=== PATIENT | male | born 1940 | race Caucasian/White ===

== ENCOUNTER 2016-12-08 05:17 | Inpatient (IN) | payer MEDICARE ==
[2016-12-05 11:40] LABS: BASOPHILS 0.4 %; BASOPHILS ABSOLUTE 0.02 10/3/uL (0.0-0.16); EOSINOPHILS 2.7 %; EOSINOPHILS ABSOLUTE 0.13 10/3/uL (0.0-0.53); HEMOGLOBIN 14.4 g/dL (13.6-17.8); IMMATURE GRANULOCYTES 0.2 %; IMMATURE GRANULOCYTES ABSOLUTE 0.01 10/3/uL (0.0-0.11); LYMPHOCYTES 22.4 %; LYMPHOCYTES ABSOLUTE 1.08 10/3/uL (0.67-4.30); MEAN CORPUS HGB CONC 33.5 g/dL (32.0-36.0); MEAN CORPUSCULAR HEMOGLOB 31.1 pg (26.0-34.0); MEAN CORPUSCULAR VOLUME 92.9 fL (80-100); MEAN PLATELET VOLUME 10.3 fL (9.2-13.0); MONOCYTES 8.5 %; MONOCYTES ABSOLUTE 0.41 10/3/uL (0.21-1.20); NEUTROPHILS 65.8 %; NEUTROPHILS ABSOLUTE 3.17 10/3/uL (2.02-8.40); PLATELET COUNT 124 10/3/uL (150-400); RED CELL COUNT 4.63 10/6/uL (4.7-6.1); WHITE BLOOD CELLS 4.8 10/3/uL (4.5-10.5)
[2016-12-05 11:42] LABS: MANUAL DIFF NO %
[2016-12-05 11:51] LABS: PROTIME (NOT ORD) 22.2 SEC (12.0-14.5)
[2016-12-05 12:11] LABS: % IRON SAT 53 % (20-50); A/G RATIO 0.8 (0.7-1.9); ALBUMIN 3.3 G/DL (3.5-5.0); ALKALINE PHOSPHATASE 80 U/L (45-117); BUN (BLOOD UREA NITROGEN) 16 MG/DL (6-23); CALCIUM, SERUM 8.8 MG/DL (8.5-10.4); CHLORIDE, SERUM 98 MMOL/L (96-112); CO2 (CARBON DIOXIDE) 29 MMOL/L (24-34); CREATININE 1.24 MG/DL (0.70-1.30); GFR AFRICAN AMERICAN 65 ML/MIN (>=60); GFR NON AFRICAN AMERICAN 56 ML/MIN (>=60); GLOBULIN 3.9 G/DL (2.5-4.1); GLUCOSE, SERUM 106 MG/DL (60-99); IRON BINDING CAPACITY 336 MCG/DL (250-450); IRON, SERUM 178 MCG/DL (35-150); POTASSIUM, SERUM 4.5 MMOL/L (3.5-5.3); SGOT(AST) 29 U/L (5-40); SGPT(ALT) 8 U/L (5-65); SODIUM, SERUM 138 MMOL/L (135-148); TOTAL BILIRUBIN 1.2 MG/DL (0-1.2); TOTAL PROTEIN 7.2 G/DL (6.0-8.5)
[2016-12-05 13:57] LABS: ASCORBIC ACID (UR NOT ORDER) NEG (NEG); BILIRUBIN, URINE NEGATIVE (NEG); KETONE, URINE TRACE MG/DL (NEG); LEUKOCYTE ESTERASE(NOT OR NEG (NEG); WBC (NOT ORDERED) (RFLEX) < 1 (0-5)
--- NOTE | ~2016-12-08 | OP ---
Record Of Operation [facility] [address] [place]. [address] NAME: YANETH AGUSTIN SR : 40 STATUS : ADM IN PAT#: [id number] AGE: 76 ADM/REG DATE : 12/08/16 MR#: [id number] REPORT SERV DATE: 01/08/17 DICTATED BY: PLACIDO ALEJANDRO DATE: 01/08/17 REPORT STATUS : Draft TRANSCRIBED BY: MODYecenia DATE: 01/08/17 DATE OF PROCEDURE: 01/08/2017 PREPROCEDURE DIAGNOSIS: Massive hemoptysis around tracheostomy. POSTPROCEDURE DIAGNOSIS: Massive hemoptysis around tracheostomy. DESCRIPTION OF PROCEDURE: Emergent bronchoscopy performed on this patient because of large amounts of blood coming through the tracheostomy site. This procedure was done in concert with critical care time and near coding situation that happened because of the ensuing incident. The patient was sedated on propofol for the procedure and was on the ventilator through the trach. Fiberoptic scope was inserted through the tracheostomy and visualized fresh blood around it in the airway. As I looked into the airway, saw a very large clot into the right mainstem and extends into the right upper lobe and part of the right lower lobe in a very cast like manner. We scored some water into the trachea, left lung and right lung, to try to visualize any sort of bleeding source, but no bleeding source was identified in terms of active bleeding. I did not see any bleeding trickling down behind the actual trach itself. The left lung actually was pretty open. There was very minimal blood on that side of the lung and all of the segments of the lung on the left lung were open. However, when we go into the right lung, is where the large mainstem clot is located and extends into the right upper lobe in all segments and parts of the right lower lobe. The procedure was complicated by hypotension and tachycardia, so we were doing active resuscitation and we had to stop the scope from that standpoint. Early in the procedure, I also tried the scope from above going through the mouth and nose to try to see above the cords in the upper trachea to see there is any bleeding from that location, but I had difficulty due to a lot of soft tissue collapsing the vocal cord region, so I was not able to cannulate the bronchoscope into the vocal cords. The patient actually did not stabilize from a respiratory or hemodynamic standpoint until I stuck at Crane down after I took the scope out and was able to suction the large cast-like clot out of his right lung. From that standpoint, his heart rate and blood pressure did much better. Right now, he is going to Interventional Radiology for emergent angiogram looking for bleeding source. CEP/MODL Placido Alejandro, / [id number] CC: Ramin Seth M.D. Lico Roberts M.D.
--- NOTE | ~2016-12-08 | CN ---
Consultation Report [facility] [address] [place]. [address] NAME: YANETH AGUSTIN SR : 40 STATUS : ADM IN PAT#: [id number] AGE: 76 ADM/REG DATE : 12/08/16 MR#: [id number] REPORT SERV DATE: 12/10/16 DICTATED BY: SANTHOSH ROBLERO DATE: 12/10/16 REPORT STATUS : Draft TRANSCRIBED BY: MODL DATE: 12/10/16 CONSULTATION DATE OF CONSULTATION: 12/10/2016 TIME: 10:50 a.m. REASON FOR CONSULTATION: Acute kidney injury. ASSESSMENT: Acute kidney injury in a 76-year-old male who has undergone extensive cardiac surgery as of 12/08/2016. Suspect he has perioperative ATN and is currently fluid overloaded. The patient is responding to Bumex drip at this time, injury is nonoliguric and plan therefore is. 1. Continue Bumex drip at current rate. 2. Double concentrate all his IVs. 3. IV albumin to control preload as we continue diureses at least 5 L positive and we will monitor electrolytes closely as he is on the Bumex drip at this time. HISTORY OF PRESENT ILLNESS: History is obtained from records available. A 76-year-old male, post CABG x4, aortic valve replacement, tricuspid valve repair Maze surgery as of 12/08/2016. Baseline creatinine of 1.1 on 05/01/2016 and 1.24 on the 05 of December this year, now up to 1.96. His urinalysis showed 30 mg/dL of protein. His cardiac index at this point is 2.1. He is on 2 mcg of Dobutrex. He is off pressors at this time and is on 0.5 mg an hour of Bumex and is making between 200 and 300 mL of urine an hour. PAST MEDICAL HISTORY: Severe aortic stenosis, symptomatic severe multivessel coronary artery disease, ejection fraction 55%, right carotid artery stenosis, pulmonary hypertension, hyperlipidemia, peripheral vascular disease, diabetes mellitus, positive history of smoking, atrial fibrillation on Coumadin, history of Parkinson's disease, and chronic obstructive pulmonary disease. SOCIAL HISTORY: He has history in the . He is retired. Past tobacco use. Quit approximately a month ago. Heavy smoker for almost 50 years. No alcohol or medication or street drug usage. FAMILY HISTORY: Mother had a stroke. Father had diabetes. HOME MEDICATIONS: Have included furosemide; carvedilol; carbidopa; oxycodone; metformin; simvastatin; and Coumadin. REVIEW OF SYSTEMS: As per the HPI. PHYSICAL EXAMINATION: Consultation Report [address] [place]. [address] NAME: YANETH AGUSTIN : 40 STATUS : ADM IN PAT#: [id number] AGE: 76 ADM/REG DATE : 12/08/16 MR#: [id number] REPORT SERV DATE: 12/10/16 DICTATED BY: SANTHOSH ROBLERO DATE: 12/10/16 REPORT STATUS : Draft TRANSCRIBED BY: NATHALY DATE: 12/10/16 GENERAL: He is intubated, sedated in no acute distress. VITAL SIGNS: Blood pressure is 160/66, heart rate is in the 100s, atrial fibrillation, he is on 35% FiO2, saturations being in the 90s. HEENT: His pupils are reactive to light. He is not pale or jaundiced. He is orally intubated. Mucosa is moist. Trachea is central. LUNGS: Air entry is reduced bilaterally. Scattered rhonchi. He has a sternotomy scar. He has a wound VAC. HEART: Heart sounds 1 and 2 are difficult to discern. ABDOMEN: Upper abdomen has mild distention. No hepatosplenomegaly. No tenderness, guarding, or rebound. Bowel sounds normal. He has about 3+ peripheral edema. PULSES: Peripheral pulses are present dorsalis pedis, posterior tibial. NEUROLOGICAL: Exam cannot be performed. LABS AND IMAGING: Blood gas 7.39, 43, 108, saturation 97. Sodium 143, potassium 4.0, chloride 108, CO2 of 25, BUN 31, creatinine 1.96, calcium is 8.2, mag is 2.4, hemoglobin 7.9, and hematocrit 22.4. White count 6.1, platelet count 36,000. Urinalysis shows 30 mg/dL of protein. Chest x-ray shows increased pulmonary vascular congestion consistent with heart failure. MG/NATHALY Santhosh Roblero M.D. / [id number] CC: Michelle Barragan M.D.
--- NOTE | ~2016-12-08 | OP ---
Record Of Operation [facility] [address] [place]. [address] NAME: YANETH AGUSTIN SR : 40 STATUS : ADM IN PAT#: [id number] AGE: 76 ADM/REG DATE : 12/08/16 MR#: [id number] REPORT SERV DATE: 01/09/17 DICTATED BY: GUERRERO TUBBS DATE: 01/09/17 REPORT STATUS : Draft TRANSCRIBED BY: MODL DATE: 01/09/17 DATE OF PROCEDURE: 01/09/2017 REASON FOR PROCEDURE: Dark stools and concern for upper GI bleeding. PROCEDURE PERFORMED: EGD or upper endoscopy. PROCEDURE IN DETAIL: Procedure was performed with the use of monitored anesthesia care for sedation and the procedure was performed without difficulty. The patient tolerated the procedure well, and there were no immediate complications. Estimated blood loss was none. After the patient was adequately sedated, the adult endoscope was advanced through the oropharynx and into the patient's esophagus. Examination of the esophagus showed no significant abnormalities. Likewise, there were no abnormalities within the duodenum. Within the stomach, a PEG tube was visualized with no suggestion of any recent bleeding. However, upon closer inspection underneath the internal bumper of the PEG tube was noted to be a large 1 cm crated gastric ulcer. The PEG tube appeared to be pulled snugly into the gastric mucosa likely causing a pressure ulceration. The PEG tube was loosened so that there was not pressure from the balloon on the inside of the stomach. It was also noted on the external bandages to be greenish brown exudate that appeared to be pus. Examination was otherwise unremarkable. IMPRESSION: Gastric ulcer underneath the patient's PEG tube. RECOMMENDATIONS: Bumper already loosened. We would keep the patient on twice daily Protonix for the next 8 to 12 weeks. We would also treat possible infected PEG tube site with vancomycin q.12 hours to be dosed by Pharmacy. We would also hold tube feeds until tomorrow to allow the ulcer a chance to begin healing. Griselda/NATHALY Guerrero Tubbs MD / [id number] CC: Michelle Barragann, M.D.
--- NOTE | ~2016-12-08 | CN ---
Consultation Report [facility] [address] [place]. [address] NAME: YANETH JOHNSON SR : 40 STATUS : ADM IN PAT#: [id number] AGE: 76 ADM/REG DATE : 12/08/16 MR#: [id number] REPORT SERV DATE: 12/09/16 DICTATED BY: DANICA VYAS DATE: 12/09/16 REPORT STATUS : Draft TRANSCRIBED BY: MODL DATE: 12/09/16 PULMONARY AND CRITICAL CARE CONSULTATION DATE OF CONSULTATION: 12/09/2016 REASON FOR CONSULTATION: Acute hypoxemic respiratory failure, status post cardiothoracic surgery. HISTORY OF PRESENT ILLNESS: Mr. Johnson is an obese, hypertensive, diabetic gentleman with chronic atrial fibrillation, on Coumadin, who is followed as an outpatient by Dr. Landin for COPD. His baseline FEV1 is around 1.45 L based on his records. He was scheduled for surgery with Dr. Seth, which was completed yesterday. He had a complicated procedure, including coronary artery bypass grafting x4 (CONWAY to LAD, saphenous vein graft to intermediate ramus, saphenous vein graft to first obtuse marginal, and saphenous vein graft to posterior descending coronary). He also had a right carotid endarterectomy, an aortic valve replacement with a 25 mm Lucie-Sánchez bovine pericardial Magna Ease bioprosthesis, a tricuspid valve repair, a Mar IV maze procedure, amputation and ligation of his left atrial appendage. His preoperative diagnoses included severe symptomatic aortic stenosis, multivessel coronary disease, pulmonary hypertension, atrial fibrillation requiring chronic anticoagulation with Coumadin, tricuspid insufficiency, hypertension, dyslipidemia, diabetes, smoking, prior congestive heart failure, and a large chronic right pleural effusion as well as critical right internal carotid stenosis. After surgery, he was left intubated with a Taunton-Susanne catheter in place due to intraoperative blood loss requiring packed red blood cells, intraoperative TEG, and DDAVP administration in the operating room. He was brought to the CVICU and initially hemodynamically stable, however, at one point last night, dropped his blood pressure to the 50 systolic with some bright red blood from the left chest tube. Of note, his INR was elevated at 2.8 this morning despite being near normal preoperatively. His platelet count was also diminished and he was transfused with platelets and given Albumisol, which improved his blood pressure significantly. At this point, he remains mechanically ventilated and is on Dobutrex, Levophed, and epinephrine with a paced rhythm in the 90s (his underlying rhythm is junctional and his hemodynamics are improved with pacing). PAST MEDICAL HISTORY: As above, severe symptomatic aortic stenosis; multivessel coronary artery disease; pulmonary hypertension; atrial fibrillation, on chronic anticoagulation; tricuspid insufficiency; hypertension; dyslipidemia; diabetes (type 2); tobacco abuse with underlying COPD, followed by Dr. 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 PAST SURGICAL HISTORY: Includes appendectomy as a teenager, tonsillectomy as a child, and several dental extractions. Consultation Report [address] [place]. [address] NAME: YANEHT JOHNSON : 40 STATUS : ADM IN [facility]#: [id number] AGE: 76 ADM/REG DATE : 12/08/16 MR#: [id number] REPORT SERV DATE: 12/09/16 DICTATED BY: DANICA VYAS DATE: 12/09/16 REPORT STATUS : Draft TRANSCRIBED BY: NATHALY DATE: 12/09/16 His primary care physician is Dr. Lico Roberts, area code [phone]. His store grocery merchandiser is Dr. Nirmal Mahajan at the [facility]. He sees Dr. Landin from my group for Pulmonology. SOCIAL HISTORY: The patient is a nondrinker and denies any illicit drug use. He is a longstanding user of cigarettes with a 50+ pack-year history. He is relatively active for his age and is able to climb stairs and participate in all activities of daily living. FAMILY HISTORY: Largely unremarkable for early coronary disease. ALLERGIES: NONE KNOWN. HOME MEDICATIONS: Sinemet 25/100 one tab three times daily, Lasix 40 mg daily, Glucophage 1000 mg twice daily, Requip 1 mg three times daily, Zocor 10 mg at bedtime, Coumadin 10 mg daily, Percocet 10/325 one tab three times daily, oxycodone 15 mg up to every six hours as needed for pain, TobraDex ophthalmic 5 mL one drop to the left eye every six hours, Travatan Z 0.004 ophthalmic solution one drop to the eyes at bedtime, Alphagan ophthalmic solution 0.1 three times daily to both eyes, Coreg 12.5 mg twice a day. CODE STATUS: Full. PHYSICAL EXAMINATION: VITAL SIGNS: Blood pressure is 115/58 on multiple vasopressors and inotropes, he is afebrile at 99.1, heart rate is 80 (paced), respiratory rate is 24 on CMV, oxygen saturation is 99% on 40% FiO2. GENERAL: The patient is a male, who is intubated and sedated. HEENT: Head is atraumatic and normocephalic. Conjunctivae are pale. Pupils are equal, round, and reactive to light. Extraocular movements are difficult to assess, but intact. Ears, nose, and mouth are unremarkable. He has an indwelling endotracheal tube and enteric tube as noted above. NECK: Supple with a Taunton in place with no active bleeding or erythema at the insertion site. CHEST: Diminished breath sounds bilaterally. He has multiple mediastinal and pleural chest tubes in place with no active bleeding at the insertion sites. There is bright red blood in the left pleural chest tube. Atrium, there were no air leaks appreciable in any of the chest tubes. HEART: S1 and S2. He has pacer wires projecting from the lower chest. ABDOMEN: Soft, nontender, nondistended with bowel sounds in all four quadrants and no appreciable peritoneal signs. He has a sternal wound VAC in place, which is functioning properly. : A Ko catheter is indwelling and draining a translucent yellow urine. EXTREMITIES: Without clubbing or cyanosis. He has trace edema. LYMPHATIC: Unremarkable. He has no palpable adenopathy. NEUROLOGIC: Limited due to sedation. Consultation Report [place] [id number] [facility] [place]. [address] NAME: YANETH JOHNSON : 40 STATUS : ADM IN [facility]#: [id number] AGE: 76 ADM/REG DATE : 12/08/16 MR#: [id number] REPORT SERV DATE: 12/09/16 DICTATED BY: DANICA VYAS DATE: 12/09/16 REPORT STATUS : Draft TRANSCRIBED BY: MODL DATE: 12/09/16 PSYCHIATRIC: Unable to assess due to sedation. LABORATORY DATA: Diagnostic workup has been reviewed in [facility]. Electrolytes are unremarkable, BUN is 24 and creatinine is 1.72 (LUCIANO likely superimposed on some degree of chronic kidney disease with a calculated GFR of 38 mL/minute), glucose is 114, calcium is 8.5. Last hemoglobin is 8.0, hematocrit is 22.3 with a platelet count of 62, which is improved from 40 earlier in his hospital course. INR was 1.3 prior to surgery. Multiple chest x-rays are reviewed from his current hospitalization with bilateral pulmonary vascular congestion consistent with mild edema, multiple chest tubes in place, appropriately positioned central line and endotracheal tube, and sternal hardware from his procedure yesterday. IMPRESSION: 1. Acute hypoxemic respiratory failure, status post cardiothoracic surgery yesterday in the setting of underlying obstructive lung disease (FEV1 of 1.45 most recently) with longstanding tobacco abuse. 2. Coronary artery disease, status post four-vessel coronary bypass. 3. Severe symptomatic aortic stenosis, status post aortic valve replacement with a bovine pericardial bioprosthesis. 4. Pulmonary hypertension with hypervolemia postprocedure. 5. Atrial fibrillation, status post Mar IV maze procedure. 6. Tricuspid insufficiency, status post tricuspid valve repair with tricuspid annuloplasty ring. 7. Acute blood loss anemia, status post complicated cardiothoracic surgery. 8. Critical right internal carotid artery stenosis, status post right carotid endarterectomy with CorMatrix patch angioplasty. 9. Parkinson disease, on Sinemet and Requip with good functional status as an outpatient. 10.Past medical history of hypertension, dyslipidemia, and diabetes mellitus, which was diagnosed in 1987, which is being treated as an outpatient with oral medications. 11.History of tobacco abuse with ongoing smoking. 12.Moderate obesity with a BMI of 32. 13.Acute kidney injury, likely superimposed on some degree of chronic kidney disease. 14.Mild hyperglycemia in the setting of critical illness with a background history of type 2 diabetes mellitus. 15.Thrombocytopenia, status post platelet administration. 16.Coagulopathy in the setting of Coumadin being held preoperatively. 17.Shock, requiring multiple vasopressors and inotropes. PLAN: Case was discussed at length with Dr. Seth. We will continue mechanical ventilation and hemodynamic support in the CVICU and slowly wean support as tolerated. We will monitor his H and H and platelet count as well as INR closely and make adjustments and/or transfuse on an as-needed basis. He has a Taunton, central line, and arterial line for hemodynamic monitoring and we will continue with routine postoperative care with the goal of extubating as soon as possible. Consultation Report [place] [id number] [place] [address] NAME: YANETH JOHNSON SR : 40 STATUS : ADM IN PAT#: [id number] AGE: 76 ADM/REG DATE : 12/08/16 MR#: [id number] REPORT SERV DATE: 12/09/16 DICTATED BY: DANICA VYAS DATE: 12/09/16 REPORT STATUS : Draft TRANSCRIBED BY: MODYecenia DATE: 12/09/16 We appreciate the opportunity to assist with Mr. Johnson's care and we will follow along closely, making adjustments to his medical management as clinically warranted. Please call with questions. MATTHEW/NATHALY Danica Vyas MD / [id number] CC: Ramin Seth M.D. Lico Roberts M.D.
--- NOTE | ~2016-12-08 | CN ---
Consultation Report [facility] [address] [place]. [address] NAME: YANETH JOHNSON SR : 40 STATUS : ADM IN PAT#: [id number] AGE: 76 ADM/REG DATE : 12/08/16 MR#: [id number] REPORT SERV DATE: 01/05/17 DICTATED BY: DANICA VYAS DATE: 01/05/17 REPORT STATUS : Draft TRANSCRIBED BY: MODL DATE: 01/05/17 CODE BLUE RESPONSE NOTE DATE OF CONSULTATION: DATE OF CODE: 01/05/2017 TIME OF CODE: 1220 hours. LOCATION OF CODE: CVICU bed 12. Pulmonary and Critical Care team responded to code blue, which was fired at 1220 hours for Mr. Yaneth Johnson. He is a 76-year-old gentleman, who has been recovering from cardiothoracic surgery with Dr. Seth in CVICU. He was up in the chair, working with Occupational Therapy, at which point he was noted to become obtunded and unresponsive. On the monitor, it was noted that he yesenia'd down to asystole. He was immediately placed back in the bed, and ACLS was initiated. He received an amp of epinephrine and approximately three minutes of chest compressions. On first pulse check, as bicarb and calcium were being pushed, he was noted to be in atrial fibrillation with rapid ventricular response at 135 and his blood pressure was 129/56. He was observed, and sequential vital signs improved to a heart rate of 100 and a blood pressure of 135/63. A full panel of labs was sent. A PICC line was replaced, and he was reconnected to the ventilator via his existing tracheostomy. We have updated his family as well as Dr. Seth's team, and we will continue to monitor him closely in the CCU tonight. MATTHEW/NATHALY Danica Vyas MD / [id number] CC: Ramin Seth M.D. Lico Roberts M.D.
--- NOTE | ~2016-12-08 | OP ---
Record Of Operation [facility] [address] [place] [address] NAME: YANETH AGUSTIN SR : 40 STATUS : ADM IN [facility]#: [id number] AGE: 76 ADM/REG DATE : 12/08/16 MR#: [id number] REPORT SERV DATE: 12/17/16 DICTATED BY: ASHLEY MURILLO DATE: 12/17/16 REPORT STATUS : Draft TRANSCRIBED BY: MODL DATE: 12/17/16 DATE OF PROCEDURE: 12/17/2016 TIME: Approximately 0930 hours. PROCEDURE: Intubation. INDICATION: Failed extubation attempt. DESCRIPTION OF PROCEDURE: Pre-oxygenated 100% oxygen. Monitored by blood pressure, EKG, and pulse oximetry. #8 endotracheal tube was placed under direct vision to 24 cm. Tube was seen to enter between the cords. Confirmed by end-tidal CO2 monitor. Good breath sounds bilaterally. Sat 100%. Post-chest x-ray ordered. The patient has failed BiPAP prior to this. OCTAVIO/NATHALY Ashley Murillo M.D. / [id number] CC: Michelle Barragan M.D.
--- NOTE | ~2016-12-08 | CN ---
Consultation Report [facility] [address] [place]. [address] NAME: YANETH AGUSTIN SR : 40 STATUS : ADM IN PAT#: [id number] AGE: 76 ADM/REG DATE : 12/08/16 MR#: [id number] REPORT SERV DATE: 12/18/16 DICTATED BY: STEVIE ZHANG DATE: 12/18/16 REPORT STATUS : Draft TRANSCRIBED BY: MODL DATE: 12/18/16 INFECTIOUS DISEASE CONSULT DATE OF CONSULTATION: REASON FOR REFERRAL: Evaluation and treatment of recrudescent fever. HISTORY OF PRESENT ILLNESS: The patient is a 76-year-old male. He has a past medical history of hypertension, diabetes mellitus, chronic obstructive pulmonary disease, prolonged extensive smoking history, chronic atrial fibrillation, for which he is on Coumadin. He was admitted electively on the 08 of December for surgery by Dr. Seth and had a quite extensive and lengthy procedure to include coronary artery bypass grafting times four, aortic valve replacement, tricuspid valve repair, and carotid endarterectomy. Postoperatively, he has remained vent dependent since then. He received appropriate preoperative antibiotics and those were stopped in a timely manner. He initially showed no fever or anything to suggest infection. He did have some postoperative hypotension, which has since resolved. He had acute renal insufficiency, which is still a problem and as stated remained on the vent. On the , he developed some low-grade temperatures just over 100. Blood cultures were checked and those remained negative. Temperature began to trend higher on the , over 101, so blood cultures were repeated again and those again have remained negative and that was on no antibiotics. Chest x-ray showed no distinct infiltrate, but a relatively purulent-appearing sputum was obtained on the . He grew gram-negative rods, so cefepime was added late on the or early with cultures repeated just for that and both of those sputum cultures grew Citrobacter and Klebsiella that were generally very sensitive organisms. He was continued on vancomycin that had been added empirically on the and remains on both antibiotics now. After the cefepime was added, his temperature did fall to normal and stayed normal for about 24 hours, but then yesterday, began trending up again. His white count has gone up. He has looked worse. He failed an extubation trial. Chest x-ray has shown nothing new, just some bilateral atelectasis. He has had his [place] removed and a culture that showed no growth. He has a PICC line now for IV medication and is relatively new. His wound does look good without any signs of redness, drainage, or purulence. He still has chest tube on the left side. He has developed no rash. He is on tube feedings and is tolerating those fine and has shown no unexpected loose stool. There is no history of pre-admission fever or unusual environmental exposures prior to coming in. Extensive records for his very complicated admission were reviewed approximately 30 minutes in addition to the usual consult time. PAST MEDICAL HISTORY: Otherwise noncontributory. MEDICATIONS: As described above. ALLERGIES: NO KNOWN ANTIMICROBIAL ALLERGIES. Consultation Report [address] [place]. [address] NAME: YANETH AGUSTIN SR : 40 STATUS : ADM IN [facility]#: [id number] AGE: 76 ADM/REG DATE : 12/08/16 MR#: [id number] REPORT SERV DATE: 12/18/16 DICTATED BY: STEVIE ZHANG DATE: 12/18/16 REPORT STATUS : Draft TRANSCRIBED BY: NATHALY DATE: 12/18/16 SOCIAL HISTORY: He is retired, single, apparently still smoking. No history of alcohol or substance abuse. FAMILY HISTORY: Noncontributory. PHYSICAL EXAMINATION: GENERAL: An ill-appearing elderly male, lying in bed. He is orotracheally intubated, responds to pain, but does not really follow commands. He has nasogastric tube in place. VITAL SIGNS: His present temperature is 99.5 axillary with a pulse of 92, respirations 25, blood pressure 121/58. Weight is 109 kg. HEENT: Sclerae clear. Unable to visualize the mouth. NECK: Supple without lymphadenopathy or meningeal signs. LUNGS: There are decreased breath sounds and crackles in the bases bilaterally, otherwise clear. HEART: Irregular. Sternal incisions covered by a VAC pack dressing, but it looks good around the borders. Chest tube site does not appear to be infected. ABDOMEN: Soft. No response to palpation. Positive bowel sounds are heard. No masses palpated. EXTREMITIES: Without clubbing, cyanosis, or edema. No swollen, red, or hot joints. No skin lesions or rashes are noted. Right extremity PICC line shows no warmth, redness, or drainage. LABORATORY DATA: His white count was 8 when he came in, briefly ishmael to 13 postoperatively, was back down to 9.1 on the and remained normal, was 8.9 yesterday, but today it was 12.2 with hematocrit 22.8, and platelets 138. Unremarkable differential. His BUN and creatinine 105 and 2.65, it had been trending down through today. Procalcitonin was last checked on the , it was 0.45. Urinalysis done with the onset of fever shows no pyuria. His cultures as stated have all been negative with the exception of the tracheal aspirates on the and that was repeated yesterday late in the morning and it showed a few white cells, occasional gram-positive cocci. Blood cultures done on remain negative. IMPRESSION: Recrudescent fever after a favorable response to cefepime, which I think was indeed treating a gram-negative castillo bronchitis/early pneumonia. There is no clear new source for fever now. The chest x-ray does not show anything new, his wound looks good, blood cultures have been negative, no rash is noted. We would worry about aspiration events with all that happened when the difficulty of him getting extubated and the fact he is on tube feedings. RECOMMENDATIONS: 1. We will follow up with tracheal aspirate cultures done yesterday. 2. Repeat blood cultures. 3. Stop vancomycin since no gram positives/Staph had been isolated. Consultation Report [address] [place]. [address] NAME: YANETH AGUSTIN : 40 STATUS : ADM IN [facility]#: [id number] AGE: 76 ADM/REG DATE : 12/08/16 MR#: [id number] REPORT SERV DATE: 12/18/16 DICTATED BY: STEVIE ZHANG DATE: 12/18/16 REPORT STATUS : Draft TRANSCRIBED BY: NATHALY DATE: 12/18/16 4. Change cefepime to Zosyn to cover in case he has not had an aspiration event. 5. Recheck the procalcitonin. If that has gone up, perhaps give us more indication where the fever is coming from. Finally, I will follow the patient with you. I appreciate very much your consulting on this patient. AUDIE/NATHALY Stevie Zhang M.D. / [id number] CC: Michelle Barragan M.D.
--- NOTE | ~2016-12-08 | OP ---
Record Of Operation [facility] [address] [place]. [address] NAME: YANETH AGUSTIN SR : 40 STATUS : ADM IN PAT#: [id number] AGE: 76 ADM/REG DATE : 12/08/16 MR#: [id number] REPORT SERV DATE: 12/19/16 DICTATED BY: ALEXYS HALEY DATE: 12/19/16 REPORT STATUS : Draft TRANSCRIBED BY: MODL DATE: 12/19/16 DATE OF PROCEDURE: 12/19/2016 PREOPERATIVE DIAGNOSIS: Acute respiratory failure. POSTOPERATIVE DIAGNOSIS: Acute respiratory failure. PROCEDURE PERFORMED: Tracheotomy. SURGEON: Alexys Haley M.D. [employer] ARCHITECT: Buster Dahl. ANESTHESIA: General. COMPLICATIONS: None. CONDITION: Stable to CV ICU bed 2. INDICATIONS: A 76-year-old male, status post coronary artery bypass grafting, double valve replacement, and right carotid endarterectomy with respiratory failure. Risks, benefits, and alternatives were discussed with his daughter and she agreed to proceed with the operation. PROCEDURE IN DETAIL: The patient was identified in CV ICU bed 2, brought to the operating room, and placed supine on the operating room table. General anesthesia was re-established. A time-out was called, the patient and procedure were confirmed. The one fingerbreadth above the sternal notch and 3 cm incision was marked with a surgical ink pen and infiltrated subcutaneously with 1% lidocaine with 1:100,000 epinephrine. He was prepped and draped in a standard fashion for the operation. He had a very stiff neck, limited extension. A 15 blade was used to make the skin incision and Bovie cautery used to dissect down to the platysma, through platysma down to the strap musculature. The midline raphe was identified and retracted laterally with the [employer] retractors. The cricoid cartilage was at the level of the sternal notch. The thyroid isthmus extended down into the mediastinum. The decision was made to go between the cricoid between rings 1 and 2. The cricoid was retracted superiorly with a cricoid hook. The upper aspect of the thyroid isthmus was dissected. A small bleeder was encountered crossing the isthmus and this was tied off with a 3-0 suture ligature. Laterally a small vein was ligated with a 3-0 interrupted silk ties. The interspace between rings 1 and 2 was treated with bipolar cautery. Blunt dissection used to enter the trachea with the hemostat. The tracheotomy dilated with the tracheal dilator and tracheal rings were cauterized with bipolar cautery. The endotracheal tube was withdrawn and a #8 cuffed Shiley tracheotomy tube was placed under direct visualization. The cuff was inflated, inner cannula placed, and the patient was connected to the ventilator, and good oxygenation and ventilation established. Face plate was secured with 2 0 silk sutures. Two strips of Surgicel were placed within the tracheotomy site to help with hemostasis and a drain sponge was placed under the face plate. There was no notable Record Of Operation [address] [address] NAME: YANETH AGUSTIN : 40 STATUS : ADM IN [facility]#: [id number] AGE: 76 ADM/REG DATE : 12/08/16 MR#: [id number] REPORT SERV DATE: 12/19/16 DICTATED BY: ALEXYS HALEY DATE: 12/19/16 REPORT STATUS : Draft TRANSCRIBED BY: MODL DATE: 12/19/16 bleeding at the end of the case. The patient was transported to the CV ICU in stable condition. PH/MODL Alexys Haley M.D. / [id number] CC: Michelle Barragan M.D.
--- NOTE | ~2016-12-08 | CN ---
Consultation Report [address] [place]. [address] NAME: YANETH JOHNSON : 40 STATUS : ADM IN PAT#: [id number] AGE: 76 ADM/REG DATE : 12/08/16 MR#: [id number] REPORT SERV DATE: 12/19/16 DICTATED BY: ALEXYS HALEY DATE: 12/19/16 REPORT STATUS : Draft TRANSCRIBED BY: MODL DATE: 12/19/16 DATE OF CONSULTATION: 12/19/2016 CHIEF COMPLAINT: Respiratory failure. HISTORY OF PRESENT ILLNESS: Mr. Johnson is a gentleman who on 12/08/2016 underwent multiple cardiothoracic procedures including double valve replacement, coronary artery bypass grafting x4 and a carotid endarterectomy. He failed extubation on postoperative day #10 and recommendation was for tracheotomy. PAST MEDICAL HISTORY: Aortic stenosis, 3-vessel coronary artery disease, right carotid stenosis, pulmonary hypertension, peripheral artery disease, hyperlipidemia, hypertension, diabetes mellitus, atrial fibrillation, parkinsonism, COPD, congestive heart failure. ALLERGIES: NO KNOWN ALLERGIES. MEDICATIONS: See the MAR. SOCIAL HISTORY: exposure, retired, past tobacco smoker. He has children, is . Does not drink alcohol. FAMILY HISTORY: Stroke and diabetes. REVIEW OF SYSTEMS: Not obtainable as he is intubated. PHYSICAL EXAMINATION: GENERAL: He is in the ICU on monitoring with stable vital signs. HEENT: His ears are normal. His nose has a Dobhoff tube, oral cavity, and orotracheal endotracheal tube. NECK: Has evidence of a carotid endarterectomy, has a sternal wound from coronary artery bypass grafting. IMPRESSION: Acute respiratory failure. PLAN: Tracheotomy. Risks, benefits, and alternatives were discussed with his daughter including bleeding, infection, need for additional surgery, pneumothorax. She agreed to the procedure. Informed consent was signed and surgery will be scheduled for later this morning. PH/MODL Consultation Report [address] [place]. [address] NAME: YANETH JOHNSON : 40 STATUS : ADM IN [facility]#: [id number] AGE: 76 ADM/REG DATE : 12/08/16 MR#: [id number] REPORT SERV DATE: 12/19/16 DICTATED BY: ALEXYS HALEY DATE: 12/19/16 REPORT STATUS : Draft TRANSCRIBED BY: MODL DATE: 12/19/16 Alexys Haley M.D. / [id number] CC: Michelle Barragan M.D.
--- NOTE | ~2016-12-08 | EGD ---
EGD REPORT [facility] [address] [place]. [address] NAME: YANETH JOHNSON SR : 40 STATUS : ADM IN PAT#: [id number] AGE: 76 ADM/REG DATE : 12/08/16 MR#: [id number] REPORT SERV DATE: 12/22/16 DICTATED BY: GUERRERO TUBBS DATE: 12/22/16 REPORT STATUS : Draft TRANSCRIBED BY: [facility] DATE: 12/22/16 Endoscopy Center Patient Name: Yaneth Johnson Date of : 1940 Attending MD: GUERRERO TUBBS MD Procedure Date No Time: 12/22/2016 Procedure: Upper GI endoscopy Indications: Place PEG because patient is unable to eat, Place PEG to improve nutrition in patient with prolonged severe illness Medicines: Monitored Anesthesia Care Complications: No immediate complications. Estimated blood loss: None. Procedure: Pre-Anesthesia Assessment: - ASA Grade Assessment: IV - A patient with severe systemic disease that is a constant threat to life. After obtaining informed consent, the endoscope was passed under direct vision. Throughout the procedure, the patient's blood pressure, pulse, and oxygen saturations were monitored continuously. The GIF [id number] was introduced through the mouth, and advanced to the second part of duodenum. The upper GI endoscopy was accomplished without difficulty. The patient tolerated the procedure well. Findings: No gross lesions were noted in the entire esophagus. No gross lesions were noted in the entire examined stomach. The patient was placed in the supine position for PEG placement. The stomach was insufflated to appose gastric and abdominal hinds. An adequate site was unable to be located in the body of the stomach with transillumination and manual external pressure for placement. Therefore, due to concerns about potential covering of the liver or bowel, no attempt was made to pass the trocar or make an incision. No gross lesions were noted in the entire examined duodenum. Impression: - Due to inability to localize a site for safe percutaneous placement, inadequate transillumination and inadequate one-to-one localization (i.e. inadequate localization by palpation) PEG was not completed. The needle/trocar was not passed. Recommendation: - Refer to an interventional radiologist today for PEG tube placement. Procedure Code(s): --- Professional --- EGD REPORT [address] [address] NAME: YANETH JOHNSON : 40 STATUS : ADM IN [facility]#: [id number] AGE: 76 ADM/REG DATE : 12/08/16 MR#: [id number] REPORT SERV DATE: 12/22/16 DICTATED BY: GUERRERO TUBBS DATE: 12/22/16 REPORT STATUS : Draft TRANSCRIBED BY: [employer] DATE: 12/22/16 [id number], Esophagogastroduodenoscopy, flexible, transoral; diagnostic, including collection of specimen(s) by brushing or washing, when performed (separate procedure) Diagnosis Code(s): --- Professional --- R63.3, Feeding difficulties Z43.1, Encounter for attention to gastrostomy E63.9, Nutritional deficiency, unspecified CPT copyright 2013 [employer]. All rights reserved. The codes documented in this report are preliminary and upon lei maker review may be revised to meet current compliance requirements. Guerrero Tubbs MD GUERRERO TUBBS MD 12/22/2016 11:01 AM This report has been signed electronically. Number of Addenda: 0 Note Initiated On: 12/22/2016 9:49 AM Scope Withdrawal Time 0 hours 0 minutes 0 seconds [id number] [place] [id number]
--- NOTE | ~2016-12-08 | DS ---
Discharge Summary [address] [id number] [place]. [address] NAME: YANETH AGUSTIN SR : 40 STATUS : DIS IN PAT#: [id number] AGE: 76 ADM/REG DATE : 12/08/16 MR#: [id number] REPORT SERV DATE: 02/07/17 DICTATED BY: THU JOLLY DATE: 02/06/17 REPORT STATUS : Draft TRANSCRIBED BY: MODL DATE: 02/06/17 ADMISSION DATE: 12/08/2016 DISCHARGE DATE: 01/23/2017 DISCHARGE DIAGNOSES: Aortic stenosis now status post AVR. Critical carotid stenosis now status post right carotid endarterectomy. Coronary artery disease now status post CAB and tricuspid insufficiency now status post tricuspid valve repair. Chronic atrial fibrillation now status post Mar-Maze IV with amputation and ligation of left atrial appendage, chronic obstructive pulmonary disease with chronic respiratory failure and pulmonary hypertension, chronic kidney disease on intermittent hemodialysis, hypertension, hyperlipidemia, insulin- dependent diabetes mellitus, obesity, peripheral vascular disease, cardiogenic shock now resolved, dysphagia now to PEG tube, coagulopathy resolved, chronic stable anemia, chronic Parkinson's disease. CONSULTATION: 1. On 12/09/2016, Tawny Baxter M.D., with Pulmonary Critical Care for acute postoperative hypoxic respiratory failure and vent management. 2. On 12/12/2016, Bassam Segura M.D. with GI for evaluation for PEG tube. 3. On 12/19/2016, Casey Mcnally M.D. with ENT for evaluation for tracheostomy. 4. On 12/18/2016, James Garcia M.D. with Infectious Disease for fever. 5. On 12/10/2016, Jose Roblero M.D. with Nephrology for acute kidney injury on chronic kidney disease. PROCEDURES PERFORMED: On 12/08/2016, right carotid endarterectomy with coronary artery bypass x4 with CONWAY to LAD, saphenous vein graft to intermediate ramus, saphenous vein graft to first obtuse marginal, saphenous vein graft to posterior descending coronary artery. Also with aortic valve replacement with 25 mm Lucie-Sánchez Bovine pericardial Magna ease bioprosthesis and tricuspid valve repair with 30 mm ATS Triad Tricuspid Annuloplasty Ring with Mar-Maze IV and ligation amputation, left atrial appendage with transesophageal echocardiogram and right lower extremity endoscopic harvest of saphenous vein. Rigid internal fixation of sternum with Biomet SternaLock Jamie titanium plating system, also with right femoral venous cannulation for cardiopulmonary bypass with right tube thoracostomy. Insertion of right femoral arterial line for hemodynamic monitoring and placement of Prevena incisional VAC dressing by Dr. Ramin Seth. On 12/17/2016, endotracheal intubation, Dr. Ramin Murillo. On 12/19/2016, insertion of Vas-Cath hemodialysis catheter in left subclavian vein, and insertion of triple-lumen catheter by Dr. Marcos Seth. On 01/08/2017, emergent bronchoscopy by Dr. Placido Alejandro. On 12/19/2016, tracheostomy by Dr. Casey Mcnally. On 01/09/2017, EGD with Dr. Guerrero Soto. On 01/08/2017, pulmonary arteriogram by Dr. Jerzy Bravo. On 01/03/2017, gastrostomy tube replacement by Dr. Jerzy Bravo. On 12/26/2016, ultrasound and fluoroscopy-guided placement of tunneled PermCath hemodialysis catheter in right internal jugular by Dr. Oswaldo Navas. On 12/22/2016, CT- guided PEG tube placement by Dr. Ramin Mullins. Surgical pathology of right carotid artery endarterectomy with complicated atherosclerosis, aortic valve leaflets with postinflammatory scarring with calcification, ossification, and excision of left atrial appendage with fiber hypertrophy. Discharge Summary [address] [address] NAME: YANETH AGUSTIN SR : 40 STATUS : DIS IN PAT#: [id number] AGE: 76 ADM/REG DATE : 12/08/16 MR#: [id number] REPORT SERV DATE: 02/07/17 DICTATED BY: THU JOLLY DATE: 02/06/17 REPORT STATUS : Draft TRANSCRIBED BY: NATHALY DATE: 02/06/17 DISCHARGE MEDICATIONS: Include: Ascorbic acid 1000 mg p.o. b.i.d., atorvastatin 40 mg p.o. daily, amiodarone 200 mg p.o. daily, brimonidine one drop in left eye every 8 hours, Sinemet 25/100 mg tab one tab p.o. three times a day, Solu-Cortef 50 mg IV twice daily, NovoLog insulin sliding scale q.6 hours, latanoprost optical solution one drop to left eye at bedtime, nystatin oral solution 500,000 units per 5 mL, dose is 5 to 10 mL p.o. daily, Protonix 40 mg IV 3 times a day, Seroquel 50 mg p.o. daily and Seroquel 75 mg p.o. at bedtime, Requip 1 mg p.o. 3 times a day, Carafate 1 g p.o. liquid before meals and at bedtime, zinc sulfate 220 mg p.o. daily, midodrine 15 mg p.o. at 0900, 1300, and 1800 per PEG, Brovana inhaled solution 15 mcg per respiratory treatment twice a day, Pulmicort 0.5 mg inhaled twice a day, DuoNeb 3 mL inhaled solution q.4 hours while awake, Levemir 8 units subcutaneously twice a day, Mylanta 30 mg p.o. liquid p.r.n. indigestion, Dulcolax 10 mg MD suppository p.r.n. constipation, Valium 5 mg p.o. q.6 hours p.r.n. anxiety and restlessness, hydrocodone 5/325 mg tab 1 tab p.o. q.4 hours p.r.n. pain, Dilaudid 1 mg IV q.3 hours p.r.n. pain unrelieved by p.o. medications, Zofran 4 mg IV q.4 hours p.r.n. nausea or vomiting, MiraLAX 1 packet p.o. daily p.r.n. constipation, clonidine 0.1 mg p.o. q.6 hours p.r.n. systolic greater than 130. CONDITION AT DISCHARGE: The patient remains on ventilator per Pulmonary Critical Care Management, has been tolerating a T-piece during the day, and tolerating anywhere from 40% to 50% FiO2. He is interactive with family, somewhat interactive with PT and occupational therapy. He is tolerating dialysis treatments at the direction of Nephrology. He has a stable anemia, he is tolerating tube feedings. DISPOSITION: On 01/23/2017, the patient is discharged to [facility] via EMS to continue ventilator weaning dialysis at the instruction of Dr. Lacey, who has been seeing the patient at the hospital and also to continue aggressive physical therapy and occupational therapy. HOSPITAL COURSE: Lengthy and complicated. On 12/08/2016, the patient underwent CAB, AVR, tricuspid valve repair. Received 2 units of blood in the OR along with DDAVP and protamine for diffuse coagulopathy. He was admitted to CVICU. He was given 2 units of FFP, 6 pack of platelets, and 1 unit of packed red blood cells for continued coagulopathy. Intraop LUKE indicated left ventricular function intact, but with a weak right ventricle. He was admitted on epinephrine, Dobutrex, Jeffery-Synephrine, Levophed, and Primacor drips also with sedation, remained on vent overnight due to hemodynamic instability and coagulopathy. Initial postop INR was 3.3, this was again treated with FFP. On 12/09/2016, the patient remains on the ventilator and sedated. Pulmonary Critical Care was consulted. The patient is neuro intact when sedation is held. He received 2 units of packed red blood cells. Tolerating slowing of inotropes and vasoconstrictive drips. Chest x-ray with increasing vascular congestion and pulmonary edema. His INR for 24 hours is positive 5 L. His INR is better today at 1.3, platelet count of 68. After transfusion of a six-pack of platelets overnight, the patient was paced per epicardial wires with intrinsic cardiac rhythm, junctional rhythm. On 12/10/2016, the patient remains on the ventilator and sedated, remains neuro intact. Pulmonary Critical Care is managing the ventilator, platelets of 39. Today, he is transfused 1 unit of packed red blood cells. Creatinine increased to 1.94. Nephrology has been consulted. Continuing to tolerate slowing of inotropic and vasoconstrictive agent. On 12/11/2016, remains on the vent and sedated. Neuro intact when Discharge Summary [address] [address] NAME: YANETH AGUSTIN : 40 STATUS : DIS IN PAT#: [id number] AGE: 76 ADM/REG DATE : 12/08/16 MR#: [id number] REPORT SERV DATE: 02/07/17 DICTATED BY: THU JOLLY DATE: 02/06/17 REPORT STATUS : Draft TRANSCRIBED BY: MODL DATE: 02/06/17 sedation is held. He tolerated CPAP for 6 hours yesterday, decreased urine output overnight. Nephrology is following. He is on a Bumex drip. Also with AFib, on an amiodarone drip per Cardiology. His platelets are 30, his HIT panel is negative. He is tolerating tube feeding. Chest x-ray was continued and slightly worsening vascular congestion and edema, his right carotid endarterectomy, incisional CHEYANNE drain was discontinued. On 12/12/2016, remains on vent and sedated and neuro intact. No events overnight. Continue AFib, platelets are 33. No changes in chest x-ray. Continuing to slowly wean inotropic and vasoconstrictive drips, remains on Bumex drip. On 12/13/2016, he remains on the vent and sedated, remains neuro intact, but restless. Good urine output with Bumex drip, tolerated CPAP well. Platelets are improving. On 12/14/2016, remains on the vent and sedated, neuro intact. Platelets, was transfused 1 unit of packed red blood cells for an H and H of 7.2 and 21.6. Platelets are improving. Renal function is worsening. Mediastinal chest tubes is discontinued. Fever overnight of 101.3. White blood cell count is 7.1, antibiotics per Pulmonary Critical Care. Pancultures have been sent. Reglan has been started to stimulate postoperative bowel movement. On 12/15/2016, he remains on the vent sedated, remains neuro intact. H and H and platelets are stable. Renal function with slight improvement in labs. right upper extremity PICC line is placed. Remains in AFib. On 12/16/2016, remains intubated and sedated. Neuro intact when sedation is held. Dobbhoff tube was placed. Lower respiratory culture with Klebsiella pneumoniae and Citrobacter freundii complex. Chest x-ray with bilateral infiltrates. He is on antibiotics, anticoagulated for AFib with heparin drip. On 12/17/2016, the patient is extubated for approximately 45 minutes and then reintubated at 0930, with Dr. Ramin Murillo for increasing shortness of breath, hypoxia, and respiratory distress. On 12/18/2016, the patient remains on the ventilator and sedated. Worsening chest x-ray with increasing venous congestion with effusion. Right upper extremity Doppler was negative for DVT. Continuing heparin drip until trach has been discussed with Dr. Mcnally. ID has been consulted to manage antibiotics. On 12/19/2016, the patient has tracheostomy tube placed, a Vas-Cath placed, and a triple- lumen catheter replaced. He is started on [employer]. He is transfused a unit of packed red blood cells for and H and H of 7.5 and 23.1. He started back on Levophed drip. On 12/20/2016, the patient with a transthoracic echocardiogram with normal LV function with estimated left ventricular ejection fraction of 60% and grossly normal right ventricular function with mild right ventricular enlargement, stable AVR, and tricuspid repair. No significant pericardial effusion. On 12/21/2016, transfuse 1 unit of packed red blood cells for H and H is 7.4 and 23.1. On 12/22/2016, he is on a ventilator per the trach, he is awake, alert, and agitated on a Precedex drip. Labs are stable. GI unable to safely place bedside PEG tube. He was sent to Interventional Radiology for CT-guided pigtail placement. On 12/23/2016, remains on the vent per trach, he is getting tube feeding per PEG tube, tolerating it fine, remain on [employer]. Labs are stable, remains in AFib and normal Levophed drip. On 12/25/2016, [employer] is stoppled. On 12/26/2016, the patient gets an ultrasound and fluoroscopy guided right IJ PermCath dialysis catheter placed. He started on hemodialysis, he get FFP x2 for INR of 2 and packed red blood cells of 2 for H and H of 6.8 and 21.2 prior to PermCath placement. ON 12/29/2016, he is tolerating the T-piece most of the day, sternal incisional Prevena VAC dressing is changed, incision is healing well. 12/30/2016, goes for dialysis treatment. On 12/31/2016, through renal CT with mild atrophy of both kidneys with no kidney stones or hydronephrosis. Discharge plans are being made with [facility] case management in the family. On 01/02/2017, goes for dialysis treatment. On 01/03/2017, PEG tube becomes dislodged, the patient must go to Interventional Radiology for PEG replacement. On Discharge Summary [id number] [facility] [place]. [address] NAME: YANETH AGUSTIN : 40 STATUS : DIS IN PAT#: [id number] AGE: 76 ADM/REG DATE : 12/08/16 MR#: [id number] REPORT SERV DATE: 02/07/17 DICTATED BY: THU JOLLY DATE: 02/06/17 REPORT STATUS : Draft TRANSCRIBED BY: MODL DATE: 02/06/17 01/05/2017, transfuse 1 unit of packed red blood cells for H and H of 6.2 and 19.4, and at approximately 1220, the patient had code blue called, he was up in a chair working with occupational therapy at which point, he was noted to become obtunded and unresponsive. Per telemetry it is noticed that he had become bradycardic and in asystole, was immediately placed back in the bed and ACLS was initiated. He received 1 amp of epinephrine and approximately 3 minutes of chest compressions on first pulse check as bicarb and calcium were being given. It is noted that he is in AFib with RVR at 135 beats per minute. Blood pressure was 129/56. He was observed with sequential vital signs, improved to a heart rate of 100, remains in AFib, blood pressure 135/63. Full panel labs were obtained and treated accordingly. The PICC line was replaced, reconnected to the ventilator via existing tracheostomy. Dr. Tawny Baxter was Pulmonary and critical Care, responding to this code. On 01/06/2017, the patient goes for dialysis and receives a unit of packed red blood cells for H and H of 6.2 and 20.4, it is noted that he has occult positive stool. He is evaluated for by GI. On 01/07/2017, received 2 units of blood for H and H is 7.0 and 22.3. On 01/08/2017, his incisional Prevena VAC was removed. Incision is well healed, left open to air. [employer] was restarted. Hemoptysis around tracheostomy is noted. He received 8 units of FFP and 1 unit of packed red blood cells, and reversal of INR with vitamin K for plans for EGD the next day. Later in the day, it is noted that he has significant hemoptysis around his tracheostomy, undergoes emergent bronchoscopy where a very large clot was noted in the right mainstem bronchus extending into the right upper lobe and part of the right lower lobe in a very cast-like manner. No definite source of bleeding was identified. Procedure complicated by hypertension and tachycardia until clot could be removed. Bowel signs stabilize that required a Levophed drip. The patient was immediately taken to Interventional Radiology for pulmonary arteriogram with arch aortography and selective catheterization of the right bronchial artery as well as brachiocephalic right and left subclavian arteries demonstrate no obvious sources of bleeding. On 01/09/2017, the patient undergoes EGD, found to have a gastric ulcer underneath the PEG tube with drainage of pus and exudate, and placed on vancomycin for 10 to 14 days. Tube feeding is held until 01/10/2017. On 01/10/2017, chest x-ray with increasing patchy infiltrates continues to be followed by Pulmonary Critical Care, Cardiology, Nephrology, and Infectious Disease. He remains on vancomycin and cefepime. Pancultures have been already sent. On 01/11/2017, transfusing a unit of packed red blood cells for H and H of 6.8 and 21.3. On 01/13/2017, he is tolerating a T-piece during the day. On 01/15/2017, continues to tolerate T-piece during the day. Somewhat labile blood pressures especially after hemodialysis. On 01/16/2017, transfuse 2 units of packed red blood cells for H and H of 6.5 and 20.6, discussed with the family and Cardiology regarding possibility of need for consideration of palliative care. Not well received by the family, who continue to request full treatment. On 01/17/2017, [employer] is stopped. On 01/18/2017, family is updated by Dr. Seth, Cardiology and Pulmonary Critical Care. Family continues to request full treatment. On 01/19/2017, goes for hemodialysis treatment. On 01/20/2017, again goes for dialysis treatment. On 01/21/2017, goes for dialysis treatment and received a unit of packed red blood cells on dialysis for H and H of 6.4 and 20.8. On 01/22/2017, again received a unit of packed red blood cells on dialysis for H and H of 7.2 and 23.0, Levophed is off, he has been started on midodrine. On 01/23/2017 goes for dialysis treatment, remains off Levophed for greater than time required for transfer per facility in [place] policy. He is tolerating midodrine well. Tolerating slow ventilator weaning. Tolerating gentle hemodialysis that is available at [place]. I discussed personally with the patient's son and [id number] at the bedside regarding Discharge Summary [facility] [address] [place]. [address] NAME: YANETH AGUSTIN SR : 40 STATUS : DIS IN PAT#: [id number] AGE: 76 ADM/REG DATE : 12/08/16 MR#: [id number] REPORT SERV DATE: 02/07/17 DICTATED BY: THU JOLLY DATE: 02/06/17 REPORT STATUS : Draft TRANSCRIBED BY: MODL DATE: 02/06/17 transfer to [place]. They would adjudicate that opportunity to transfer and pursue aggressive physical therapy and occupational therapy, and expressed their extreme gratitude for all care provided by all caregivers including RNs, all therapist positions and hoe worker during his stay at [facility]. I also discussed with Dr. Baxter and Demar Alfaro, RN for Pulmonary and Critical Care and Dr. Lacey regarding potential transfer today. All agreed to proceed with [place] transfer today. Dr. Lacey will continue to follow the patient at [place]. The family is also aware that Dr. Lacey will continue to see and treat the patient at [place] and are thankful for the continuity of care. I estimate the above information as my discharge summary. TAR/MODL Thu Jolly APN / [id number] CC: Michelle Barragan M.D.
--- NOTE | ~2016-12-08 | OP ---
Record Of Operation [facility] [address] [place]. [address] NAME: YANETH AGUSTIN : 40 STATUS : ADM IN PAT#: [id number] AGE: 76 ADM/REG DATE : 12/08/16 MR#: [id number] REPORT SERV DATE: 12/09/16 DICTATED BY: ASHLEY SETH DATE: 12/09/16 REPORT STATUS : Draft TRANSCRIBED BY: MODL DATE: 12/09/16 DATE OF PROCEDURE: 12/08/2016 OPERATIVE PROCEDURE: 1. Right carotid endarterectomy with CorMatrix patch angioplasty. 2. CAB x4, left internal mammary artery to LAD, saphenous vein graft to intermediate ramus, saphenous vein graft to first obtuse marginal, saphenous vein graft to posterior descending coronary artery. 3. Aortic valve replacement, 25 mm Lucie-Sánchez bovine pericardial Magna Ease bioprosthesis. 4. Tricuspid valve repair with 30 mm ATS Tri-Ad tricuspid annuloplasty ring. 5. Mar IV Maze procedure. 6. Amputation and ligation, left atrial appendage. 7. Transesophageal echocardiogram. 8. Endoscopic harvest, saphenous vein, right lower extremity. 9. Rigid internal fixation of sternum [employer] SternaLock Jamie titanium plating system. 10.Right femoral venous cannulation for cardiopulmonary bypass. 11.Right tube thoracostomy. 12.Insertion of right femoral arterial line for hemodynamic monitoring. 13.Placement of Prevena incisional VAC dressing. PREOPERATIVE DIAGNOSES: 1. Severe symptomatic aortic stenosis. 2. Multivessel coronary artery disease. 3. Pulmonary hypertension. 4. Atrial fibrillation. 5. Tricuspid insufficiency. 6. Hypertension. 7. Dyslipidemia. 8. Diabetes mellitus. 9. Positive and ongoing smoking history with underlying chronic obstructive pulmonary disease. 10.Obesity, elevated BMI. 11.History of congestive heart failure. 12.Large right pleural effusion. 13.Critical stenosis, right internal carotid artery. POSTOPERATIVE DIAGNOSES: 1. Severe symptomatic aortic stenosis. 2. Multivessel coronary artery disease. 3. Pulmonary hypertension. 4. Atrial fibrillation. 5. Tricuspid insufficiency. 6. Hypertension. 7. Dyslipidemia. 8. Diabetes mellitus. Record Of Operation [facility] [address] [place]. [address] NAME: YANETH AGUSTIN : 40 STATUS : ADM IN PAT#: [id number] AGE: 76 ADM/REG DATE : 12/08/16 MR#: [id number] REPORT SERV DATE: 12/09/16 DICTATED BY: ASHLEY SETH DATE: 12/09/16 REPORT STATUS : Draft TRANSCRIBED BY: MODL DATE: 12/09/16 9. Positive and ongoing smoking history with underlying chronic obstructive pulmonary disease. 10.Obesity, elevated BMI. 11.History of congestive heart failure. 12.Large right pleural effusion. 13.Critical stenosis, right internal carotid artery. SURGEON: Ashley Seth M.D. OXIDATION ENGINEER: Belen Nobles [employer]ARK INTERPRETIVE SPECIALIST, Arnoldo Avalos TERMINAL CARMAN, and Nacho Santoyo [facility]. BRIEF CLINICAL HISTORY: The patient is a 76-year-old, diabetic, hypertensive, dyslipidemic, obese male, with ongoing smoking history, underlying COPD, history of atrial fibrillation, presents with increasing congestive heart failure symptoms of worsening dyspnea on exertion, shortness of breath, easy fatigability. Workup with echocardiogram indicates severe aortic stenosis, multivessel coronary artery disease, moderate pulmonary hypertension, mild-to- moderate tricuspid insufficiency, and evidence of chronic atrial fibrillation. Preoperative CT scan and chest x-ray indicates large right pleural effusion. Carotid ultrasound indicated category 3 severe stenosis involving the right internal carotid artery. Based on the above clinical history and workup, the patient was admitted now to undergo simultaneous right carotid endarterectomy with aortic valve replacement, CAB, intraoperative evaluation of tricuspid valve, and probable Mar IV Maze procedure. Surgery was discussed with the patient and family including increased risks for a long complicated operation and all have agreed to proceed. DETAILS OF PROCEDURE: The patient was taken to the operating room and placed on the operating table in the supine position. Placed under general anesthesia with endotracheal intubation. Pulmonary pressures were mildly elevated at 35 to 40/15 to 20. Central venous pressure was around 12 with a small V-wave being present. Transesophageal echocardiogram was done indicating a very severely calcified tightly stenotic aortic valve, moderate-to- severe left ventricular hypertrophy. Evaluation of tricuspid valve revealed mild-to- moderate tricuspid insufficiency with dilated tricuspid annulus at 37 mm. He was in atrial fibrillation. Based on these findings, it was felt that tricuspid repair indicated as well as Mar IV Maze procedure, due to the patient's history of atrial fibrillation. He was positioned, prepped and draped in a sterile manner. Saphenous vein was endoscopically harvested from the right lower extremity. Right carotid endarterectomy was done first, due to carotid ultrasound indicating critical stenosis of right internal carotid artery. Incision was made along the anterior border of the right sternocleidomastoid muscle and carried through the platysma muscle. Using the Bovie cautery, the sternocleidomastoid muscle was retracted laterally exposing the carotid sheath. The common carotid, internal and external carotid artery were then dissected free from their surrounding connective tissues. Hypoglossal nerve was identified. It was carefully mobilized and gently retracted in order to gain distal exposure. He was systemically heparinized. Proximal and distal control was obtained using Silastic vessel loops. The common carotid was opened. The incision was carried across a nearly occlusive lesion involving the carotid bifurcation and proximal internal carotid artery. Good back flow was noted. A 12 shunt was placed. Cerebral flow was re-established. Cerebral oximetries remained stable. On inspection of Record Of Operation [facility] [id number] [place]. [address] NAME: YANETH AGUSTIN : 40 STATUS : ADM IN [facility]#: [id number] AGE: 76 ADM/REG DATE : 12/08/16 MR#: [id number] REPORT SERV DATE: 12/09/16 DICTATED BY: ASHLEY SETH DATE: 12/09/16 REPORT STATUS : Draft TRANSCRIBED BY: NATHALY DATE: 12/09/16 the plaque, there was a large cystic-like area in the plaque involving the internal carotid artery, suggestive of an acute hemorrhage into a plaque with resulting near occlusion. The endarterectomy was then carried out without difficulty. The distal intima nicely. Residual intima appeared firmly attached. The orifice of the external carotid artery was also endarterectomized, the plaque was divided proximally. The endarterectomized surface was thoroughly debrided of all residual fragments, and was repeatedly irrigated with heparinized saline solution. A CorMatrix patch was fashioned, sewn to the arteriotomy with running 7-0 Prolene. Shunt was removed. Arteriotomy closure was completed. Flow was reestablished. Patch laid nicely. Suture line was hemostatic. Cerebral oximetry had remained stable. This incision was packed with 4 x 4 gauze sponge to be closed later following completion of cardiac procedure. Median sternotomy incision was made and carried down to the sternum using the Bovie cautery. Sternum was divided in the midline. Left internal mammary artery was taken down using cautery dissection. Changes in the left lung consistent with underlying chronic obstructive pulmonary disease. Preoperative workup indicated a large right pleural effusion. The right pleural space was opened and a #32 right pleural chest tube was placed, draining approximately 1200 mL of straw-colored serous fluid from the right pleural space. The pericardium was opened and retracted laterally. Right ventricle and right atrium were markedly enlarged. Severe left ventricular hypertrophy. Aorta mildly dilated at 3.8 to 4 cm. Nonaneurysmal. The distal ascending aorta was then cannulated with a Lab4U soft flow cannula. Due to need for tricuspid or Mar IV Maze, a 2-staged femoral venous cannula was placed via the right femoral vein. After obtaining therapeutic ACT, placed on cardiopulmonary bypass. Pulmonary vein isolation was then carried out in the initial stage. Mar IV Maze procedure with parallel segovia was being placed across the entry of both left and right pulmonary veins to the left atrium using AtriCure bipolar device with transmurality being documented. At this point, the ascending aorta was cross-clamped. Heart was arrested by injecting cold blood cardioplegia solution in an antegrade and retrograde fashion. Satisfactory arrest was obtained. Heart kept cold by keeping it immersed in ice slush solution. In order to enhance right heart protection, it was elected to place a saphenous vein graft to the posterior descending vessel first, this was done in an end-to-side fashion with running 8-0 Prolene, excellent flow was noted throughout the remainder of this portion of the cross-clamp period, in which the Mar IV Maze procedure was carried out. Myocardial protection was maintained by injecting cardioplegia solution in an antegrade and retrograde fashion and also down the completed right posterior descending graft. This was done every 10 to 15 minutes. Heart was kept cold by keeping it immersed in ice slush solution. The left atrial appendage was then amputated and ligated. Low clot was noted. A burn was taken from the left atrial appendage down on to the left superior pulmonary vein again using AtriCure bipolar device. Transmurality was confirmed. The left atrial appendage sump was then oversewn 4-0 Prolene horizontal mattress suture, 4-0 Prolene [id number] suture. The left atrium was opened again at the right superior pulmonary vein and carried inferiorly underneath the inferior vena cava. A dome lesion was created from the right superior to the left superior pulmonary vein. A floor of lesion was created from the right inferior pulmonary vein to the left inferior pulmonary vein, and a lesion was taken down toward the mitral anulus, all using AtriCure bipolar device. Transmurality was confirmed. A cryolesion was then taken down onto the mitral annulus and a cryolesion was placed across the coronary sinus. This completed the left atrial component Mar IV Maze procedure. The Record Of Operation [facility] [address] [place]. [address] NAME: YANETH AGUSTIN : 40 STATUS : ADM IN PAT#: [id number] AGE: 76 ADM/REG DATE : 12/08/16 MR#: [id number] REPORT SERV DATE: 12/09/16 DICTATED BY: ASHLEY SETH DATE: 12/09/16 REPORT STATUS : Draft TRANSCRIBED BY: NATHALY DATE: 12/09/16 left atrium was closed with running 4-0 Prolene suture. A pursestring suture was then placed in the right atrial appendage. The right atrial appendage was opened, cable snares had been placed around superior and inferior vena cava. A radiofrequency ablation lesion was taken from the right atrial appendage, high up on the right atrial wall and a vertical incision was created from the terminal portion of this ablation line vertically to the inferior aspect of the right atrial free wall. The lesion was taken up to superior vena cava and down the inferior vena cava again using bipolar device. A cryolesion was taken from the superior aspect of the incision to the 2 o'clock position on the tricuspid valve. The tricuspid annulus appeared markedly dilated, 2-0 Tycron sutures were placed from the 9 o'clock position to the 6 o'clock position. This was sized to a 30 mm ATS Tri-Ad tricuspid annuloplasty ring. Sutures were placed through the ring. The ring seated nicely, was tied in securely. Tricuspid valve appeared competent. Right atrial incision was closed with running 4-0 Prolene. At this point, a 2-stage single venous cannula was then placed in the right atrial appendage and the femoral venous cannula was removed and the cannulation site was secured in the usual fashion. The remainder of the bypass grafts were then placed using reverse segment saphenous vein graft, distal anastomosis was done in an end-to-side fashion to the first obtuse marginal vessel with running 8-0 Prolene, good flow noted. Additional cardioplegia solution was injected. A second saphenous vein graft then placed to the ramus vessel in an end-to-side fashion with running 8-0 Prolene, good flow was noted. Then the left internal mammary artery was then placed to the mid LAD in an end-to-side fashion with running 8-0 Prolene, excellent flow was noted through all grafts. All suture lines were grossly hemostatic at that point. Throughout the remainder of cross-clamp period, additional cardioplegia solution injected retrograde via the coronary sinus down to completed grafts every 10 minutes. Heart kept cold by keeping it immersed in ice slush solution. The ascending aorta was opened, incision was carried down toward the noncoronary sinus exposing a heavily calcified 3-leaflet aortic valve. These leaflets were excised. The annulus was debrided of residual calcium. There was a significant amount of calcium extended from the commissural area between the right and noncoronary leaflets down into the membranous septum. This was very carefully debrided in order to allow proceeding of the aortic prosthesis. A 2-0 Tycron horizontal mattress sutures, 3 x 7 mm pledgets were then placed around the aortic annulus. These were then passed through the sewing ring of a 25 mm Lucie-Sánchez bovine pericardial bioprosthetic valve. This seated nicely and was tied in securely. The aortic incision was closed with running 4-0 Prolene. At this point, warm blood cardioplegia solution was continuously infused retrograde via the coronary sinus while proximal anastomoses was done to the ascending aorta with 5.2 mm punch with running 6-0 Prolene. The patient was placed in deep Trendelenburg position, de-airing maneuver was carried out. Adequate de-airing confirmed on transesophageal echocardiogram. Cross-clamp was removed and flow was established down all grafts. Adequate de-airing again confirmed on transesophageal echocardiogram. Pacing wires and chest tubes were placed. Started on low dose Dobutrex and was gradually weaned from cardiopulmonary bypass without difficulty. The aortic prosthesis was well seated, no perivalvular leaks. Tricuspid valve was functioning normally. No tricuspid insufficiency. Good left ventricular contractility noted. Mild hypo contractility noted of the right ventricle. Venous cannula was removed. A few scattered coagulopathy was apparent, and was given protamine. The intraoperative thromboelastogram was done indicating a platelet function deficit and he was given DDAVP with marked improvement in hemostasis. He was markedly anemic and was given one unit of pack cells and upon doing this right ventricle appeared over filled and mildly Record Of Operation [address] [address] NAME: YANETH AGUSTIN SR : 40 STATUS : ADM IN PAT#: [id number] AGE: 76 ADM/REG DATE : 12/08/16 MR#: [id number] REPORT SERV DATE: 12/09/16 DICTATED BY: ASHLEY SETH DATE: 12/09/16 REPORT STATUS : Draft TRANSCRIBED BY: MODL DATE: 12/09/16 decompensated. He was started on low-dose Primacor with marked improvement of RV function. He remained relatively stable. Although, cardiac output index remained relatively low. Basically appeared to be more of a volume status issue and a contractility issue. Overall, hemostasis was markedly improved, he remained hemodynamically stable. Thymic fat tissue and pericardium were then loosely reapproximated. Because of his multiple comorbidities including obesity, diabetes mellitus, extreme length of operative procedure, ongoing smoking history, and underlying COPD. He was relatively felt to represent an increased risk for sternal wound complications. It was elected to reinforce sternal closure with [email or web address] SternaLock Jamie titanium plating system. [place] titanium cables were placed. Ladder plates placed on body, X plate placed on manubrium, cables were tightened and secured over the plates. The plates were anchored to sternal margins with 16 mm cortical screws. He remained stable. Repeated inspections of the mediastinum and pleural spaces prior to sternal closure showed no evidence of any active bleeding with marked improvement in coagulation defect with the administration of DDAVP only. The linea alba, fascia, and sternum were closed with #1 Vicryl [id number] suture, subcutaneous layer was closed with interrupted 3-0 Vicryl, skin closed with 3-0 Monocryl, Prevena incisional VAC dressing was applied. He tolerated procedure overall well and was taken to the intensive care unit in critical, but stable condition. MAYA/NATHALY Ashley Seth M.D. / [id number] CC: Michelle Barragan M.D. Van Stephen Monroe Jr., M.D. [facility]
--- NOTE | ~2016-12-08 | CN ---
Consultation Report [address] [address] NAME: YANETH JOHNSON : 40 STATUS : ADM IN PAT#: [id number] AGE: 76 ADM/REG DATE : 12/08/16 MR#: [id number] REPORT SERV DATE: 12/20/16 DICTATED BY: ELLIE SEGURA DATE: 12/20/16 REPORT STATUS : Draft TRANSCRIBED BY: MODL DATE: 12/20/16 CONSULTATION DATE OF CONSULTATION: HISTORY OF PRESENT ILLNESS: Yaneth Johnson is a 76-year-old male, whom we are seeing private, unattached, for evaluation for a PEG tube. This patient was admitted on 12/08/2016, underwent a right carotid endarterectomy, coronary artery bypass grafting, aortic valve replacement, and tricuspid valve maze. He had respiratory issues and failed extubation. He had a trach in place. He has had acute kidney injury. According to his daughter, he has had colonoscopies in the past, but she can not tell me with who, and has had colon polyps. We are asked to place a gastrostomy tube in him. PAST MEDICAL HISTORY: 1. Aortic stenosis. 2. Pulmonary hypertension. 3. Peripheral vascular disease. 4. Hyperlipidemia. 5. Hypertension. 6. Diabetes. 7. Atrial fibrillation. 8. COPD. 9. Congestive heart failure. 10.Parkinson's. SOCIAL HISTORY: He no longer smokes. He does not drink. ALLERGIES: NONE KNOWN. PAST SURGICAL HISTORY: 1. Appendectomy. 2. Tonsillectomy. CURRENT MEDICATIONS: See MAR. Of note, he is on Coumadin and Zosyn. PHYSICAL EXAMINATION: GENERAL: He was on the ventilator. Afebrile. VITAL SIGNS: Stable. LUNGS: Clear. CARDIOVASCULAR: Normal S1, S2. ABDOMINAL: Revealed active bowel sounds. Soft, nontender. LABORATORY DATA: BUN 65, creatinine 1.7, glucose 152. White blood cell count 12,700, hemoglobin 7.8, platelet count 56,000. INR 1.4. Consultation Report [address] [address] NAME: YANETH JOHNSON : 40 STATUS : ADM IN PAT#: [id number] AGE: 76 ADM/REG DATE : 12/08/16 MR#: [id number] REPORT SERV DATE: 12/20/16 DICTATED BY: ELLIE SEGURA DATE: 12/20/16 REPORT STATUS : Draft TRANSCRIBED BY: NATHALY DATE: 12/20/16 IMPRESSION: 1. Dysphagia secondary to being on ventilator and trach. 2. At least one PEG tube placement on Thursday. 3. Coumadin will need to be held. I have discussed risks, benefits, alternatives with the patient's daughter and they agree to proceed. Thank you for this consult. /NATHALY Ellie Segura M.D. / [id number] CC: Michelle Barragan M.D.
--- NOTE | ~2016-12-08 | OP ---
Record Of Operation [facility] [address] [place]. [address] NAME: YANETH AGUSTIN SR : 40 STATUS : ADM IN PAT#: [id number] AGE: 76 ADM/REG DATE : 12/08/16 MR#: [id number] REPORT SERV DATE: 12/19/16 DICTATED BY: ASHLEY SETH DATE: 12/19/16 REPORT STATUS : Draft TRANSCRIBED BY: MODL DATE: 12/19/16 DATE OF PROCEDURE: 12/19/2016 OPERATIVE PROCEDURE: 1. Insertion of Vas-Cath hemodialysis catheter, left subclavian vein. 2. Insertion of triple-lumen central venous line, left subclavian vein. PREOPERATIVE DIAGNOSES: Acute kidney injury status post right carotid endarterectomy, coronary artery bypass, aortic valve replacement, tricuspid valve Mar IV Maze procedure, ligation left atrial appendage. POSTOPERATIVE DIAGNOSES: Acute kidney injury status post right carotid endarterectomy, coronary artery bypass, aortic valve replacement, tricuspid valve Mar IV Maze procedure, ligation left atrial appendage. SURGEON: Ashley Seth M.D. ANESTHESIA: Local 1% Xylocaine. DETAILS OF PROCEDURE: With the patient in the cardiovascular intensive care unit in anticipation of starting CRRT per Dr. Soria, it was elected to place Vas-Cath hemodialysis catheter. Also need for additional central access with anticipated placement of triple-lumen central venous line. The left subclavian area was prepped and draped in a sterile manner. Local anesthesia was obtained with 1% Xylocaine. The left subclavian vein was easily cannulated and wire guide for Vas-Cath hemodialysis catheter was placed and secured at this point. A 2nd subclavian stick was then carried out with an 18-gauge needle through which a wire guide for triple-lumen central venous catheter was placed. Triple lumen catheter was then placed over the wire guide without difficulty. Each port was flushed with heparinized saline solution. Capped and the catheter was secured with 2 silk suture. Over the wire placed for the Vas-Cath, a dilator was easily passed, and a 24 x 14- And[place]ran Vas-Cath hemodialysis catheter was then placed via the wire guide, easily passed, good flow was noted through each port. Each port was flushed with heparinized saline solution and capped. This was secured to the chest wall with 2-0 silk sutures. The insertion site was again cleaned and Biopatch and sterile dressings were applied. He tolerated well. Chest x-ray is pending. MAYA/NATHALY Ashley Seth M.D. / [id number] CC: Record Of Operation [address] [address] NAME: YANETH AGUSTIN : 40 STATUS : ADM IN PAT#: [id number] AGE: 76 ADM/REG DATE : 12/08/16 MR#: [id number] REPORT SERV DATE: 12/19/16 DICTATED BY: ASHLEY SETH DATE: 12/19/16 REPORT STATUS : Draft TRANSCRIBED BY: NATHALY DATE: 12/19/16 Michelle Barragan M.D.
[~2016-12-08 05:17] MED LIST: ALPHAGAN P0.1 % OPH; ASAB PO; COREG12 PO; COUMADIN10 MG PO; GLUCOPHAGE1000 MG PO; L40 PO; PERCOCET1 TA4 PO; REQUIP1 PO; ROXICODONE15 MG PO; SIN25 PO; TOBDEX5 OPH; TRAVATAN Z0.004 % OPH; XANAX1 MG PO; ZOCOR10 PO
[2016-12-08 06:44] LABS: INTERNATIONAL NORMAL RATI 1.3 UNITS (-)
[2016-12-08 06:46] LABS: PROTIME (NOT ORD) 15.7 SEC (12.0-14.5)
[2016-12-08 17:18] LABS: BASOPHILS 0.1 %; BASOPHILS ABSOLUTE 0.01 10/3/uL (0.0-0.16); EOSINOPHILS 0.3 %; EOSINOPHILS ABSOLUTE 0.02 10/3/uL (0.0-0.53); IMMATURE GRANULOCYTES 0.6 %; IMMATURE GRANULOCYTES ABSOLUTE 0.05 10/3/uL (0.0-0.11); LYMPHOCYTES 11.9 %; LYMPHOCYTES ABSOLUTE 0.95 10/3/uL (0.67-4.30); MEAN CORPUSCULAR HEMOGLOB 31.1 pg (26.0-34.0); MEAN CORPUSCULAR VOLUME 91.6 fL (80-100); MEAN PLATELET VOLUME 10.2 fL (9.2-13.0); MONOCYTES 2.6 %; MONOCYTES ABSOLUTE 0.21 10/3/uL (0.21-1.20); NEUTROPHILS 84.5 %; NEUTROPHILS ABSOLUTE 6.73 10/3/uL (2.02-8.40); RBC DISTRIBUTION WIDTH 14.1 % (12.0-16.0)
[2016-12-08 17:20] LABS: TEG - ANGLE 55.1 DEG (53-72); TEG - MAXIMUM AMPLITUDE 43.5 MM (50-70)
[2016-12-08 17:20] LABS: HEMATOCRIT 26.2 % (40.0-51.0); HEMOGLOBIN 8.9 g/dL (13.6-17.8); PLATELET COUNT 41 10/3/uL (150-400); RED CELL COUNT 2.86 10/6/uL (4.7-6.1)
[2016-12-08 17:21] LABS: TEG - COAGULATION INDEX -3.8 (-3 TO 3)
[2016-12-08 17:23] LABS: MANUAL DIFF NO %
[2016-12-08 17:34] LABS: INTERNATIONAL NORMAL RATI 3.3 UNITS (-); PARTIAL THROMBO TIME 62.3 SEC (22.5-37.2)
[2016-12-08 17:35] LABS: PROTIME (NOT ORD) 33.6 SEC (12.0-14.5)
[2016-12-08 17:41] LABS: RBC MORPHOLOGY NORM (NORMAL)
[2016-12-08 18:15] LABS: BE (BASE EXCESS) -3.2 MEQ/L (0 +/- 2.5); CARBOXYHEMOGLOBIN 0.2 % (0-3); HCO3 (ACTUAL BICARBONATE) 23.1 MEQ/L (23-27); HEMOBLOGIN CONTENT 11.7 G/DL (14-18); INSTRUMENT SERIAL # 11843; METHEMOGLOBIN 0.8 % (0-3); MODE SIMV; PCO2 (CO2 TENSION) 47 MMHG (35-45); PO2 (O2 TENSION) 351 MMHG (79-93); SAMPLE Arterial; TIDAL VOLUME 800 ML; pH 7.31 (7.37-7.43)
[2016-12-08 18:50] LABS: HEMATOCRIT 31.9 % (40.0-51.0)
[2016-12-08 18:52] LABS: PLATELET COUNT 44 10/3/uL (150-400)
[2016-12-08 18:58] LABS: INTERNATIONAL NORMAL RATI 2.9 UNITS (-); PARTIAL THROMBO TIME 54.1 SEC (22.5-37.2); PROTIME (NOT ORD) 30.2 SEC (12.0-14.5)
[2016-12-08 18:59] LABS: BUN (BLOOD UREA NITROGEN) 14 MG/DL (6-23); CHLORIDE, SERUM 112 MMOL/L (96-112); CREATININE 1.19 MG/DL (0.70-1.30); GFR AFRICAN AMERICAN 68 ML/MIN (>=60); GFR NON AFRICAN AMERICAN 59 ML/MIN (>=60); SODIUM, SERUM 144 MMOL/L (135-148)
[2016-12-08 19:00] LABS: CO2 (CARBON DIOXIDE) 23 MMOL/L (24-34); GLUCOSE, SERUM 159 MG/DL (60-99); POTASSIUM, SERUM 5.1 MMOL/L (3.5-5.3)
[2016-12-08 22:56] LABS: BE (BASE EXCESS) -5.4 MEQ/L (0 +/- 2.5); CARBOXYHEMOGLOBIN 0.3 % (0-3); HCO3 (ACTUAL BICARBONATE) 20.8 MEQ/L (23-27); HEMOBLOGIN CONTENT 10.1 G/DL (14-18); INSTRUMENT SERIAL # 11843; METHEMOGLOBIN 1.1 % (0-3); MODE SIMV; O2 CONTENT 13.9 VOL% (18-24); PCO2 (CO2 TENSION) 43 MMHG (35-45); PO2 (O2 TENSION) 137 MMHG (79-93); SAMPLE Arterial; TIDAL VOLUME 800 ML
[2016-12-08 23:05] LABS: BASOPHILS 0.1 %; BASOPHILS ABSOLUTE 0.01 10/3/uL (0.0-0.16); EOSINOPHILS 0.1 %; EOSINOPHILS ABSOLUTE 0.01 10/3/uL (0.0-0.53); HEMOGLOBIN 9.2 g/dL (13.6-17.8); IMMATURE GRANULOCYTES 0.8 %; LYMPHOCYTES 4.4 %; LYMPHOCYTES ABSOLUTE 0.58 10/3/uL (0.67-4.30); MEAN CORPUS HGB CONC 34.5 g/dL (32.0-36.0); MEAN CORPUSCULAR HEMOGLOB 31.1 pg (26.0-34.0); MEAN CORPUSCULAR VOLUME 90.2 fL (80-100); MEAN PLATELET VOLUME 9.8 fL (9.2-13.0); MONOCYTES 3.9 %; MONOCYTES ABSOLUTE 0.51 10/3/uL (0.21-1.20); NEUTROPHILS 90.7 %; RBC DISTRIBUTION WIDTH 14.6 % (12.0-16.0); RED CELL COUNT 2.96 10/6/uL (4.7-6.1)
[2016-12-08 23:07] LABS: HEMATOCRIT 26.7 % (40.0-51.0); MANUAL DIFF NO %; PLATELET COUNT 80 10/3/uL (150-400); WHITE BLOOD CELLS 13.2 10/3/uL (4.5-10.5)
[2016-12-08 23:19] LABS: BUN (BLOOD UREA NITROGEN) 17 MG/DL (6-23); CALCIUM, SERUM 8.2 MG/DL (8.5-10.4); CHLORIDE, SERUM 110 MMOL/L (96-112); CO2 (CARBON DIOXIDE) 22 MMOL/L (24-34); CREATININE 1.56 MG/DL (0.70-1.30); GFR AFRICAN AMERICAN 49 ML/MIN (>=60); GFR NON AFRICAN AMERICAN 43 ML/MIN (>=60); GLUCOSE, SERUM 197 MG/DL (60-99); POTASSIUM, SERUM 4.6 MMOL/L (3.5-5.3); SODIUM, SERUM 143 MMOL/L (135-148)
[2016-12-08 23:21] LABS: PARTIAL THROMBO TIME 40.5 SEC (22.5-37.2)
[2016-12-08 23:26] LABS: FIBRINOGEN 127 MG/DL (230-462)
[2016-12-09 02:20] LABS: BASOPHILS 0 %; EOSINOPHILS 0 %; HEMOGLOBIN 8.3 g/dL (13.6-17.8); IMMATURE GRANULOCYTES 0.3 %; IMMATURE GRANULOCYTES ABSOLUTE 0.03 10/3/uL (0.0-0.11); LYMPHOCYTES 6.1 %; LYMPHOCYTES ABSOLUTE 0.55 10/3/uL (0.67-4.30); MEAN CORPUS HGB CONC 35.3 g/dL (32.0-36.0); MEAN CORPUSCULAR HEMOGLOB 31.3 pg (26.0-34.0); MEAN CORPUSCULAR VOLUME 88.7 fL (80-100); MEAN PLATELET VOLUME 9.4 fL (9.2-13.0); MONOCYTES ABSOLUTE 0.64 10/3/uL (0.21-1.20); NEUTROPHILS 86.6 %; NEUTROPHILS ABSOLUTE 7.86 10/3/uL (2.02-8.40); PLATELET COUNT 68 10/3/uL (150-400); RBC DISTRIBUTION WIDTH 15.1 % (12.0-16.0); RED CELL COUNT 2.65 10/6/uL (4.7-6.1); WHITE BLOOD CELLS 9.1 10/3/uL (4.5-10.5)
[2016-12-09 02:21] LABS: HEMATOCRIT 23.5 % (40.0-51.0); MANUAL DIFF NO %
[2016-12-09 02:33] LABS: BUN (BLOOD UREA NITROGEN) 20 MG/DL (6-23); CHLORIDE, SERUM 111 MMOL/L (96-112); CO2 (CARBON DIOXIDE) 24 MMOL/L (24-34); GFR AFRICAN AMERICAN 48 ML/MIN (>=60); GFR NON AFRICAN AMERICAN 41 ML/MIN (>=60); GLUCOSE, SERUM 159 MG/DL (60-99); POTASSIUM, SERUM 4.4 MMOL/L (3.5-5.3); SODIUM, SERUM 144 MMOL/L (135-148)
[2016-12-09 02:36] LABS: PLATELET ESTIMATE DEC (ADEQUATE); RBC MORPHOLOGY NORM (NORMAL)
[2016-12-09 04:22] LABS: INTERNATIONAL NORMAL RATI 1.3 UNITS (-); PARTIAL THROMBO TIME 38.8 SEC (22.5-37.2)
[2016-12-09 05:49] LABS: INTERNATIONAL NORMAL RATI 1.3 UNITS (-)
[2016-12-09 05:50] LABS: PARTIAL THROMBO TIME 37.9 SEC (22.5-37.2)
[2016-12-09 07:10] LABS: BE (BASE EXCESS) -1.7 MEQ/L (0 +/- 2.5); CARBOXYHEMOGLOBIN 0.1 % (0-3); HCO3 (ACTUAL BICARBONATE) 23.6 MEQ/L (23-27); HEMOBLOGIN CONTENT 9.4 G/DL (14-18); INSTRUMENT SERIAL # 11843; METHEMOGLOBIN 0.8 % (0-3); O2 CONTENT 12.8 VOL% (18-24); PCO2 (CO2 TENSION) 42 MMHG (35-45); PO2 (O2 TENSION) 105 MMHG (79-93); pH 7.36 (7.37-7.43)
[2016-12-09 07:11] LABS: MODE SIMV; SAMPLE Arterial; TIDAL VOLUME 800 ML
[2016-12-09 07:59] LABS: BASOPHILS 0 %; EOSINOPHILS 0 %; HEMATOCRIT 24.1 % (40.0-51.0); HEMOGLOBIN 8.7 g/dL (13.6-17.8); IMMATURE GRANULOCYTES 0.2 %; IMMATURE GRANULOCYTES ABSOLUTE 0.02 10/3/uL (0.0-0.11); LYMPHOCYTES ABSOLUTE 0.75 10/3/uL (0.67-4.30); MEAN CORPUS HGB CONC 36.1 g/dL (32.0-36.0); MEAN CORPUSCULAR HEMOGLOB 30.9 pg (26.0-34.0); MEAN PLATELET VOLUME 10.2 fL (9.2-13.0); MONOCYTES 7.9 %; MONOCYTES ABSOLUTE 0.74 10/3/uL (0.21-1.20); NEUTROPHILS 83.9 %; NEUTROPHILS ABSOLUTE 7.87 10/3/uL (2.02-8.40); PLATELET COUNT 68 10/3/uL (150-400); RBC DISTRIBUTION WIDTH 15.9 % (12.0-16.0); RED CELL COUNT 2.82 10/6/uL (4.7-6.1); WHITE BLOOD CELLS 9.4 10/3/uL (4.5-10.5)
[2016-12-09 08:00] LABS: INTERNATIONAL NORMAL RATI 1.3 UNITS (-); MANUAL DIFF NO %; MEAN CORPUSCULAR VOLUME 85.5 fL (80-100); PARTIAL THROMBO TIME 36.3 SEC (22.5-37.2); PROTIME (NOT ORD) 15.8 SEC (12.0-14.5)
[2016-12-09 08:14] LABS: BUN (BLOOD UREA NITROGEN) 21 MG/DL (6-23); CALCIUM, SERUM 8.7 MG/DL (8.5-10.4); CHLORIDE, SERUM 111 MMOL/L (96-112); CO2 (CARBON DIOXIDE) 23 MMOL/L (24-34); CREATININE 1.58 MG/DL (0.70-1.30); GFR AFRICAN AMERICAN 49 ML/MIN (>=60); GFR NON AFRICAN AMERICAN 42 ML/MIN (>=60); GLUCOSE, SERUM 108 MG/DL (60-99); POTASSIUM, SERUM 4.2 MMOL/L (3.5-5.3); SODIUM, SERUM 144 MMOL/L (135-148)
[2016-12-09 08:18] LABS: PLATELET ESTIMATE DEC (ADEQUATE)
[2016-12-09 08:19] LABS: RBC MORPHOLOGY NORM (NORMAL)
[2016-12-09 13:24] LABS: HEMATOCRIT 22.3 % (40.0-51.0); PLATELET COUNT 62 10/3/uL (150-400)
[2016-12-09 13:33] LABS: BUN (BLOOD UREA NITROGEN) 24 MG/DL (6-23); CALCIUM, SERUM 8.5 MG/DL (8.5-10.4); CHLORIDE, SERUM 109 MMOL/L (96-112); CO2 (CARBON DIOXIDE) 24 MMOL/L (24-34); CREATININE 1.72 MG/DL (0.70-1.30); GFR AFRICAN AMERICAN 44 ML/MIN (>=60); GFR NON AFRICAN AMERICAN 38 ML/MIN (>=60); GLUCOSE, SERUM 114 MG/DL (60-99); POTASSIUM, SERUM 4.7 MMOL/L (3.5-5.3); SODIUM, SERUM 143 MMOL/L (135-148)
[2016-12-09 16:29] LABS: BE (BASE EXCESS) -3.7 MEQ/L (0 +/- 2.5); CARBOXYHEMOGLOBIN 0.1 % (0-3); HCO3 (ACTUAL BICARBONATE) 20.8 MEQ/L (23-27); HEMOBLOGIN CONTENT 8.9 G/DL (14-18); INSTRUMENT SERIAL # 11843; METHEMOGLOBIN 0.9 % (0-3); MODE CMV; OPERATOR ID 32214; PCO2 (CO2 TENSION) 35 MMHG (35-45); PO2 (O2 TENSION) 90 MMHG (79-93); SAMPLE Arterial; TIDAL VOLUME 500 ML; pH 7.39 (7.37-7.43)
[2016-12-09 18:47] LABS: HEMATOCRIT 23.5 % (40.0-51.0); HEMOGLOBIN 8.5 g/dL (13.6-17.8)
[2016-12-09 18:53] LABS: POTASSIUM, SERUM 4.6 MMOL/L (3.5-5.3)
[2016-12-09 20:43] LABS: BUN (BLOOD UREA NITROGEN) 26 MG/DL (6-23); CALCIUM, SERUM 8.1 MG/DL (8.5-10.4); CHLORIDE, SERUM 110 MMOL/L (96-112); CO2 (CARBON DIOXIDE) 22 MMOL/L (24-34); CREATININE 1.84 MG/DL (0.70-1.30); GFR AFRICAN AMERICAN 40 ML/MIN (>=60); GFR NON AFRICAN AMERICAN 35 ML/MIN (>=60); GLUCOSE, SERUM 93 MG/DL (60-99); SODIUM, SERUM 143 MMOL/L (135-148)
[2016-12-09 21:16] LABS: PLATELET COUNT 51 10/3/uL (150-400)
[2016-12-10 01:08] LABS: HEMATOCRIT 22.8 % (40.0-51.0); HEMOGLOBIN 8.1 g/dL (13.6-17.8)
[2016-12-10 01:09] LABS: PLATELET COUNT 38 10/3/uL (150-400)
[2016-12-10 01:20] LABS: BUN (BLOOD UREA NITROGEN) 29 MG/DL (6-23); CALCIUM, SERUM 8.2 MG/DL (8.5-10.4); CHLORIDE, SERUM 108 MMOL/L (96-112); CO2 (CARBON DIOXIDE) 24 MMOL/L (24-34); CREATININE 1.89 MG/DL (0.70-1.30); GFR AFRICAN AMERICAN 39 ML/MIN (>=60); GFR NON AFRICAN AMERICAN 34 ML/MIN (>=60); GLUCOSE, SERUM 105 MG/DL (60-99); POTASSIUM, SERUM 4.5 MMOL/L (3.5-5.3); SODIUM, SERUM 143 MMOL/L (135-148)
[2016-12-10 03:31] LABS: INTERNATIONAL NORMAL RATI 1.2 UNITS (-); PROTIME (NOT ORD) 15.1 SEC (12.0-14.5)
[2016-12-10 03:32] LABS: PARTIAL THROMBO TIME 32.8 SEC (22.5-37.2)
[2016-12-10 03:53] LABS: BASOPHILS 0 %; EOSINOPHILS 0 %; HEMATOCRIT 23.1 % (40.0-51.0); HEMOGLOBIN 8.2 g/dL (13.6-17.8); IMMATURE GRANULOCYTES 0.3 %; IMMATURE GRANULOCYTES ABSOLUTE 0.02 10/3/uL (0.0-0.11); LYMPHOCYTES 6.4 %; LYMPHOCYTES ABSOLUTE 0.39 10/3/uL (0.67-4.30); MEAN CORPUS HGB CONC 35.5 g/dL (32.0-36.0); MEAN CORPUSCULAR HEMOGLOB 31.1 pg (26.0-34.0); MEAN CORPUSCULAR VOLUME 87.5 fL (80-100); MEAN PLATELET VOLUME 10.3 fL (9.2-13.0); MONOCYTES 12.3 %; MONOCYTES ABSOLUTE 0.75 10/3/uL (0.21-1.20); NEUTROPHILS ABSOLUTE 4.96 10/3/uL (2.02-8.40); RBC DISTRIBUTION WIDTH 16.1 % (12.0-16.0); RED CELL COUNT 2.64 10/6/uL (4.7-6.1); WHITE BLOOD CELLS 6.1 10/3/uL (4.5-10.5)
[2016-12-10 03:54] LABS: PLATELET COUNT 39 10/3/uL (150-400)
[2016-12-10 03:55] LABS: MANUAL DIFF NO %
[2016-12-10 04:04] LABS: BUN (BLOOD UREA NITROGEN) 30 MG/DL (6-23); CALCIUM, SERUM 8.3 MG/DL (8.5-10.4); CHLORIDE, SERUM 109 MMOL/L (96-112); CO2 (CARBON DIOXIDE) 23 MMOL/L (24-34); CREATININE 1.94 MG/DL (0.70-1.30); GFR AFRICAN AMERICAN 38 ML/MIN (>=60); GFR NON AFRICAN AMERICAN 33 ML/MIN (>=60); POTASSIUM, SERUM 4.2 MMOL/L (3.5-5.3); SODIUM, SERUM 144 MMOL/L (135-148)
[2016-12-10 04:12] LABS: INSTRUMENT SERIAL # 11843; PCO2 (CO2 TENSION) 43 MMHG (35-45); pH 7.39 (7.37-7.43)
[2016-12-10 04:13] LABS: BE (BASE EXCESS) 0.4 MEQ/L (0 +/- 2.5); CARBOXYHEMOGLOBIN 0.3 % (0-3); HCO3 (ACTUAL BICARBONATE) 25.4 MEQ/L (23-27); HEMOBLOGIN CONTENT 9.1 G/DL (14-18); METHEMOGLOBIN 0.8 % (0-3); MODE CMV; O2 CONTENT 12.5 VOL% (18-24); PO2 (O2 TENSION) 108 MMHG (79-93); SAMPLE Arterial; TIDAL VOLUME 500 ML
[2016-12-10 04:19] LABS: RBC MORPHOLOGY NORM (NORMAL)
[2016-12-10 04:21] LABS: GLUCOSE, SERUM 81 MG/DL (60-99)
[2016-12-10 10:07] LABS: HEMATOCRIT 22.4 % (40.0-51.0); HEMOGLOBIN 7.9 g/dL (13.6-17.8)
[2016-12-10 10:08] LABS: PLATELET COUNT 36 10/3/uL (150-400)
[2016-12-10 10:17] LABS: BUN (BLOOD UREA NITROGEN) 31 MG/DL (6-23); CALCIUM, SERUM 8.2 MG/DL (8.5-10.4); CHLORIDE, SERUM 108 MMOL/L (96-112); CO2 (CARBON DIOXIDE) 25 MMOL/L (24-34); CREATININE 1.96 MG/DL (0.70-1.30); GFR AFRICAN AMERICAN 37 ML/MIN (>=60); GFR NON AFRICAN AMERICAN 32 ML/MIN (>=60); SODIUM, SERUM 143 MMOL/L (135-148)
[2016-12-10 10:18] LABS: GLUCOSE, SERUM 104 MG/DL (60-99)
[2016-12-10 13:43] LABS: HEPARIN-INDUCED PLATELET AB NEGATIVE (NEGATIVE); HIT PATIENT O.D. 0.006 OD (0.000-0.299)
[2016-12-10 15:28] LABS: HEMOGLOBIN 9.4 g/dL (13.6-17.8)
[2016-12-10 15:29] LABS: HEMATOCRIT 26.9 % (40.0-51.0); PLATELET COUNT 37 10/3/uL (150-400)
[2016-12-10 15:38] LABS: BUN (BLOOD UREA NITROGEN) 32 MG/DL (6-23); CALCIUM, SERUM 8.2 MG/DL (8.5-10.4); CHLORIDE, SERUM 107 MMOL/L (96-112); CO2 (CARBON DIOXIDE) 24 MMOL/L (24-34); GFR AFRICAN AMERICAN 36 ML/MIN (>=60); GFR NON AFRICAN AMERICAN 31 ML/MIN (>=60); POTASSIUM, SERUM 4.1 MMOL/L (3.5-5.3); SODIUM, SERUM 142 MMOL/L (135-148)
[2016-12-10 15:41] LABS: GLUCOSE, SERUM 128 MG/DL (60-99)
[2016-12-10 22:57] LABS: HEMATOCRIT 25.8 % (40.0-51.0); HEMOGLOBIN 9.1 g/dL (13.6-17.8)
[2016-12-10 22:58] LABS: PLATELET COUNT 34 10/3/uL (150-400)
[2016-12-10 23:08] LABS: CALCIUM, SERUM 8.3 MG/DL (8.5-10.4); CHLORIDE, SERUM 106 MMOL/L (96-112); CO2 (CARBON DIOXIDE) 23 MMOL/L (24-34); CREATININE 2.04 MG/DL (0.70-1.30); GFR AFRICAN AMERICAN 36 ML/MIN (>=60); GFR NON AFRICAN AMERICAN 31 ML/MIN (>=60); GLUCOSE, SERUM 123 MG/DL (60-99); PHOSPHORUS, SERUM 4.8 MG/DL (2.5-4.5); POTASSIUM, SERUM 4.3 MMOL/L (3.5-5.3); SODIUM, SERUM 141 MMOL/L (135-148)
[2016-12-10 23:09] LABS: BUN (BLOOD UREA NITROGEN) 36 MG/DL (6-23)
[2016-12-11 03:23] LABS: BASOPHILS 0 %; EOSINOPHILS 0.2 %; EOSINOPHILS ABSOLUTE 0.01 10/3/uL (0.0-0.53); HEMATOCRIT 24.3 % (40.0-51.0); HEMOGLOBIN 8.5 g/dL (13.6-17.8); IMMATURE GRANULOCYTES 0.4 %; IMMATURE GRANULOCYTES ABSOLUTE 0.02 10/3/uL (0.0-0.11); LYMPHOCYTES 7.3 %; LYMPHOCYTES ABSOLUTE 0.36 10/3/uL (0.67-4.30); MEAN CORPUSCULAR HEMOGLOB 31.1 pg (26.0-34.0); MEAN PLATELET VOLUME 10.9 fL (9.2-13.0); MONOCYTES 8.6 %; MONOCYTES ABSOLUTE 0.42 10/3/uL (0.21-1.20); NEUTROPHILS 83.5 %; RBC DISTRIBUTION WIDTH 16.1 % (12.0-16.0); RED CELL COUNT 2.73 10/6/uL (4.7-6.1); WHITE BLOOD CELLS 4.9 10/3/uL (4.5-10.5)
[2016-12-11 03:28] LABS: MANUAL DIFF NO %; PLATELET COUNT 30 10/3/uL (150-400)
[2016-12-11 03:40] LABS: BUN (BLOOD UREA NITROGEN) 37 MG/DL (6-23); CALCIUM, SERUM 8.3 MG/DL (8.5-10.4); CHLORIDE, SERUM 107 MMOL/L (96-112); CO2 (CARBON DIOXIDE) 23 MMOL/L (24-34); CREATININE 2.09 MG/DL (0.70-1.30); GFR AFRICAN AMERICAN 35 ML/MIN (>=60); GFR NON AFRICAN AMERICAN 30 ML/MIN (>=60); GLUCOSE, SERUM 121 MG/DL (60-99); SODIUM, SERUM 142 MMOL/L (135-148)
[2016-12-11 03:48] LABS: OVALOCYTES 1+ (3-10/OIF) (0-2/OIF)
[2016-12-11 04:02] LABS: BE (BASE EXCESS) -3.8 MEQ/L (0 +/- 2.5); HEMOBLOGIN CONTENT 9.2 G/DL (14-18); INSTRUMENT SERIAL # 11843; METHEMOGLOBIN 0.8 % (0-3); O2 CONTENT 12.6 VOL% (18-24); OPERATOR ID 31061; PCO2 (CO2 TENSION) 37 MMHG (35-45); PO2 (O2 TENSION) 108 MMHG (79-93); SAMPLE Arterial; pH 7.38 (7.37-7.43)
[2016-12-11 04:03] LABS: MODE CMV; TIDAL VOLUME 500 ML
[2016-12-11 10:21] LABS: HEMATOCRIT 25.8 % (40.0-51.0)
[2016-12-11 10:22] LABS: PLATELET COUNT 32 10/3/uL (150-400)
[2016-12-11 10:32] LABS: BUN (BLOOD UREA NITROGEN) 39 MG/DL (6-23); CHLORIDE, SERUM 107 MMOL/L (96-112); CO2 (CARBON DIOXIDE) 23 MMOL/L (24-34); CREATININE 2.21 MG/DL (0.70-1.30); GFR AFRICAN AMERICAN 32 ML/MIN (>=60); GFR NON AFRICAN AMERICAN 28 ML/MIN (>=60); GLUCOSE, SERUM 126 MG/DL (60-99); POTASSIUM, SERUM 4.2 MMOL/L (3.5-5.3); SODIUM, SERUM 141 MMOL/L (135-148)
[2016-12-11 17:20] LABS: HEMATOCRIT 24.6 % (40.0-51.0); HEMOGLOBIN 8.7 g/dL (13.6-17.8); PLATELET COUNT 34 10/3/uL (150-400)
[2016-12-11 17:31] LABS: CALCIUM, SERUM 8.4 MG/DL (8.5-10.4); CHLORIDE, SERUM 105 MMOL/L (96-112); CO2 (CARBON DIOXIDE) 23 MMOL/L (24-34); CREATININE 2.28 MG/DL (0.70-1.30); GFR AFRICAN AMERICAN 31 ML/MIN (>=60); GFR NON AFRICAN AMERICAN 27 ML/MIN (>=60); GLUCOSE, SERUM 129 MG/DL (60-99); POTASSIUM, SERUM 3.8 MMOL/L (3.5-5.3); SODIUM, SERUM 140 MMOL/L (135-148)
[2016-12-11 17:32] LABS: BUN (BLOOD UREA NITROGEN) 46 MG/DL (6-23)
[2016-12-11 21:38] LABS: HEMATOCRIT 24.1 % (40.0-51.0); HEMOGLOBIN 8.4 g/dL (13.6-17.8)
[2016-12-11 21:39] LABS: PLATELET COUNT 32 10/3/uL (150-400)
[2016-12-11 21:40] LABS: BUN (BLOOD UREA NITROGEN) 45 MG/DL (6-23); CALCIUM, SERUM 8.6 MG/DL (8.5-10.4); CHLORIDE, SERUM 103 MMOL/L (96-112); CO2 (CARBON DIOXIDE) 25 MMOL/L (24-34); CREATININE 2.33 MG/DL (0.70-1.30); GFR AFRICAN AMERICAN 30 ML/MIN (>=60); GFR NON AFRICAN AMERICAN 26 ML/MIN (>=60); GLUCOSE, SERUM 132 MG/DL (60-99); POTASSIUM, SERUM 3.6 MMOL/L (3.5-5.3); SODIUM, SERUM 142 MMOL/L (135-148)
[2016-12-12 03:00] LABS: BASOPHILS 0.2 %; BASOPHILS ABSOLUTE 0.01 10/3/uL (0.0-0.16); EOSINOPHILS 1.6 %; EOSINOPHILS ABSOLUTE 0.07 10/3/uL (0.0-0.53); HEMATOCRIT 23.5 % (40.0-51.0); HEMOGLOBIN 8.1 g/dL (13.6-17.8); IMMATURE GRANULOCYTES 0.4 %; IMMATURE GRANULOCYTES ABSOLUTE 0.02 10/3/uL (0.0-0.11); LYMPHOCYTES 9.4 %; LYMPHOCYTES ABSOLUTE 0.42 10/3/uL (0.67-4.30); MEAN CORPUS HGB CONC 34.5 g/dL (32.0-36.0); MEAN CORPUSCULAR HEMOGLOB 30.9 pg (26.0-34.0); MEAN CORPUSCULAR VOLUME 89.7 fL (80-100); MONOCYTES 11.9 %; MONOCYTES ABSOLUTE 0.53 10/3/uL (0.21-1.20); NEUTROPHILS 76.5 %; RED CELL COUNT 2.62 10/6/uL (4.7-6.1); WHITE BLOOD CELLS 4.5 10/3/uL (4.5-10.5)
[2016-12-12 03:01] LABS: MANUAL DIFF NO %; PLATELET COUNT 33 10/3/uL (150-400)
[2016-12-12 03:17] LABS: A/G RATIO 2.2 (0.7-1.9); ALBUMIN 4.3 G/DL (3.5-5.0); ALKALINE PHOSPHATASE 59 U/L (45-117); BUN (BLOOD UREA NITROGEN) 49 MG/DL (6-23); CALCIUM, SERUM 8.4 MG/DL (8.5-10.4); CHLORIDE, SERUM 104 MMOL/L (96-112); CO2 (CARBON DIOXIDE) 27 MMOL/L (24-34); CREATININE 2.26 MG/DL (0.70-1.30); GFR AFRICAN AMERICAN 31 ML/MIN (>=60); GFR NON AFRICAN AMERICAN 27 ML/MIN (>=60); GLUCOSE, SERUM 74 MG/DL (60-99); PHOSPHORUS, SERUM 4.3 MG/DL (2.5-4.5); POTASSIUM, SERUM 3.4 MMOL/L (3.5-5.3); SGOT(AST) 48 U/L (5-40); SGPT(ALT) < 6 U/L (5-65); SODIUM, SERUM 143 MMOL/L (135-148); TOTAL BILIRUBIN 1.3 MG/DL (0-1.2); TOTAL PROTEIN 6.3 G/DL (6.0-8.5)
[2016-12-12 03:26] LABS: STOMATOCYTES 1+ (3-10/OIF) (0-2/OIF)
[2016-12-12 03:26] LABS: BE (BASE EXCESS) 0.8 MEQ/L (0 +/- 2.5); CARBOXYHEMOGLOBIN 0.3 % (0-3); HCO3 (ACTUAL BICARBONATE) 26.1 MEQ/L (23-27); HEMOBLOGIN CONTENT 8.8 G/DL (14-18); INSTRUMENT SERIAL # 11843; METHEMOGLOBIN 0.7 % (0-3); MODE CMV; OPERATOR ID 23712; PCO2 (CO2 TENSION) 45 MMHG (35-45); PO2 (O2 TENSION) 97 MMHG (79-93); SAMPLE Arterial; TIDAL VOLUME 500 ML; pH 7.38 (7.37-7.43)
[2016-12-12 03:27] LABS: OVALOCYTES 1+ (3-10/OIF) (0-2/OIF)
[2016-12-12 13:57] LABS: BASOPHILS 0 %; EOSINOPHILS 1.3 %; EOSINOPHILS ABSOLUTE 0.08 10/3/uL (0.0-0.53); HEMATOCRIT 25.1 % (40.0-51.0); HEMOGLOBIN 8.6 g/dL (13.6-17.8); IMMATURE GRANULOCYTES 0.2 %; IMMATURE GRANULOCYTES ABSOLUTE 0.01 10/3/uL (0.0-0.11); LYMPHOCYTES 9.2 %; LYMPHOCYTES ABSOLUTE 0.56 10/3/uL (0.67-4.30); MEAN CORPUS HGB CONC 34.3 g/dL (32.0-36.0); MEAN CORPUSCULAR HEMOGLOB 30.8 pg (26.0-34.0); MEAN PLATELET VOLUME 10.7 fL (9.2-13.0); MONOCYTES ABSOLUTE 0.61 10/3/uL (0.21-1.20); NEUTROPHILS 79.3 %; NEUTROPHILS ABSOLUTE 4.84 10/3/uL (2.02-8.40); RBC DISTRIBUTION WIDTH 16.1 % (12.0-16.0); RED CELL COUNT 2.79 10/6/uL (4.7-6.1); WHITE BLOOD CELLS 6.1 10/3/uL (4.5-10.5)
[2016-12-12 14:00] LABS: MANUAL DIFF NO %; PLATELET COUNT 47 10/3/uL (150-400)
[2016-12-12 14:08] LABS: CALCIUM, SERUM 8.9 MG/DL (8.5-10.4); CHLORIDE, SERUM 103 MMOL/L (96-112); CO2 (CARBON DIOXIDE) 26 MMOL/L (24-34); CREATININE 2.39 MG/DL (0.70-1.30); GFR AFRICAN AMERICAN 29 ML/MIN (>=60); GFR NON AFRICAN AMERICAN 25 ML/MIN (>=60); POTASSIUM, SERUM 3.9 MMOL/L (3.5-5.3); SODIUM, SERUM 142 MMOL/L (135-148)
[2016-12-12 14:09] LABS: BUN (BLOOD UREA NITROGEN) 56 MG/DL (6-23); GLUCOSE, SERUM 172 MG/DL (60-99)
[2016-12-12 14:15] LABS: RBC MORPHOLOGY NORM (NORMAL)
[2016-12-13 03:45] LABS: BASOPHILS 0 %; EOSINOPHILS 1.8 %; HEMATOCRIT 22.7 % (40.0-51.0); HEMOGLOBIN 7.8 g/dL (13.6-17.8); IMMATURE GRANULOCYTES 0.2 %; IMMATURE GRANULOCYTES ABSOLUTE 0.01 10/3/uL (0.0-0.11); MEAN CORPUS HGB CONC 34.4 g/dL (32.0-36.0); MEAN CORPUSCULAR HEMOGLOB 31.6 pg (26.0-34.0); MEAN CORPUSCULAR VOLUME 91.9 fL (80-100); MEAN PLATELET VOLUME 10.4 fL (9.2-13.0); MONOCYTES 14.8 %; MONOCYTES ABSOLUTE 0.84 10/3/uL (0.21-1.20); NEUTROPHILS 76.2 %; NEUTROPHILS ABSOLUTE 4.34 10/3/uL (2.02-8.40); PLATELET COUNT 50 10/3/uL (150-400); RBC DISTRIBUTION WIDTH 15.9 % (12.0-16.0); RED CELL COUNT 2.47 10/6/uL (4.7-6.1); WHITE BLOOD CELLS 5.7 10/3/uL (4.5-10.5)
[2016-12-13 03:47] LABS: MANUAL DIFF NO %
[2016-12-13 03:55] LABS: INTERNATIONAL NORMAL RATI 1.4 UNITS (-); PROTIME (NOT ORD) 17.1 SEC (12.0-14.5)
[2016-12-13 03:59] LABS: A/G RATIO 1.7 (0.7-1.9); ALBUMIN 4.1 G/DL (3.5-5.0); CALCIUM, SERUM 8.7 MG/DL (8.5-10.4); CHLORIDE, SERUM 105 MMOL/L (96-112); CO2 (CARBON DIOXIDE) 28 MMOL/L (24-34); CREATININE 2.34 MG/DL (0.70-1.30); DIRECT BILIRUBIN 1.2 MG/DL (0.0-0.4); GFR AFRICAN AMERICAN 30 ML/MIN (>=60); GFR NON AFRICAN AMERICAN 26 ML/MIN (>=60); GLOBULIN 2.4 G/DL (2.5-4.1); GLUCOSE, SERUM 159 MG/DL (60-99); POTASSIUM, SERUM 3.2 MMOL/L (3.5-5.3); SGOT(AST) 42 U/L (5-40); SGPT(ALT) 7 U/L (5-65); SODIUM, SERUM 145 MMOL/L (135-148); TOTAL PROTEIN 6.5 G/DL (6.0-8.5)
[2016-12-13 04:13] LABS: ALKALINE PHOSPHATASE 73 U/L (45-117); BUN (BLOOD UREA NITROGEN) 69 MG/DL (6-23); INDIRECT BILIRUBIN(NOT ORDER) 1.2 MG/DL (0.1-0.9); PHOSPHORUS, SERUM 2.6 MG/DL (2.5-4.5); TOTAL BILIRUBIN 2.4 MG/DL (0-1.2)
[2016-12-13 04:18] LABS: POLYCHROMASIA 1+ (2-5/OIF) (0-1/OIF)
[2016-12-13 04:28] LABS: CARBOXYHEMOGLOBIN 0.1 % (0-3); HCO3 (ACTUAL BICARBONATE) 27.4 MEQ/L (23-27); HEMOBLOGIN CONTENT 8.7 G/DL (14-18); INSTRUMENT SERIAL # 11843; METHEMOGLOBIN 0.7 % (0-3); MODE CMV; O2 CONTENT 11.8 VOL% (18-24); OPERATOR ID 16469; PCO2 (CO2 TENSION) 41 MMHG (35-45); PO2 (O2 TENSION) 92 MMHG (79-93); SAMPLE Arterial; TIDAL VOLUME 500 ML; pH 7.44 (7.37-7.43)
[2016-12-13 13:47] LABS: PROCALCITONIN 0.71 ng/mL (<0.5)
[2016-12-13 16:07] LABS: POTASSIUM, SERUM 3.6 MMOL/L (3.5-5.3)
[2016-12-14 04:12] LABS: BASOPHILS 0.1 %; BASOPHILS ABSOLUTE 0.01 10/3/uL (0.0-0.16); EOSINOPHILS 1.1 %; EOSINOPHILS ABSOLUTE 0.08 10/3/uL (0.0-0.53); HEMATOCRIT 21.6 % (40.0-51.0); HEMOGLOBIN 7.2 g/dL (13.6-17.8); IMMATURE GRANULOCYTES ABSOLUTE 0.07 10/3/uL (0.0-0.11); LYMPHOCYTES 12.9 %; LYMPHOCYTES ABSOLUTE 0.92 10/3/uL (0.67-4.30); MEAN CORPUS HGB CONC 33.3 g/dL (32.0-36.0); MEAN CORPUSCULAR VOLUME 93.1 fL (80-100); MEAN PLATELET VOLUME 10.4 fL (9.2-13.0); MONOCYTES 12.9 %; MONOCYTES ABSOLUTE 0.92 10/3/uL (0.21-1.20); NEUTROPHILS ABSOLUTE 5.13 10/3/uL (2.02-8.40); RBC DISTRIBUTION WIDTH 16.3 % (12.0-16.0); RED CELL COUNT 2.32 10/6/uL (4.7-6.1); WHITE BLOOD CELLS 7.1 10/3/uL (4.5-10.5)
[2016-12-14 04:16] LABS: MANUAL DIFF NO %; PLATELET COUNT 67 10/3/uL (150-400)
[2016-12-14 04:26] LABS: ALBUMIN 4.2 G/DL (3.5-5.0); ALKALINE PHOSPHATASE 78 U/L (45-117); CHLORIDE, SERUM 105 MMOL/L (96-112); CO2 (CARBON DIOXIDE) 28 MMOL/L (24-34); CREATININE 2.46 MG/DL (0.70-1.30); GFR AFRICAN AMERICAN 28 ML/MIN (>=60); GFR NON AFRICAN AMERICAN 25 ML/MIN (>=60); GLUCOSE, SERUM 152 MG/DL (60-99); INDIRECT BILIRUBIN(NOT ORDER) 0.9 MG/DL (0.1-0.9); PHOSPHORUS, SERUM 2.8 MG/DL (2.5-4.5); POTASSIUM, SERUM 3.5 MMOL/L (3.5-5.3); SGOT(AST) 45 U/L (5-40); SGPT(ALT) 8 U/L (5-65); SODIUM, SERUM 144 MMOL/L (135-148); TOTAL BILIRUBIN 2.4 MG/DL (0-1.2); TOTAL PROTEIN 6.6 G/DL (6.0-8.5)
[2016-12-14 04:30] LABS: BUN (BLOOD UREA NITROGEN) 89 MG/DL (6-23); DIRECT BILIRUBIN 1.5 MG/DL (0.0-0.4)
[2016-12-14 04:40] LABS: INTERNATIONAL NORMAL RATI 1.4 UNITS (-); PROTIME (NOT ORD) 17.1 SEC (12.0-14.5)
[2016-12-14 06:38] LABS: PLATELET ESTIMATE DEC (ADEQUATE)
[2016-12-14 08:59] LABS: ASCORBIC ACID (UR NOT ORDER) 40 (NEG); BILIRUBIN, URINE NEGATIVE (NEG); KETONE, URINE NEGATIVE (NEG); LEUKOCYTE ESTERASE(NOT OR NEG (NEG); WBC (NOT ORDERED) (RFLEX) 2 (0-5)
[2016-12-15 04:41] LABS: BASOPHILS 0.3 %; BASOPHILS ABSOLUTE 0.02 10/3/uL (0.0-0.16); EOSINOPHILS 1.7 %; EOSINOPHILS ABSOLUTE 0.13 10/3/uL (0.0-0.53); HEMOGLOBIN 8.1 g/dL (13.6-17.8); IMMATURE GRANULOCYTES 3.3 %; IMMATURE GRANULOCYTES ABSOLUTE 0.26 10/3/uL (0.0-0.11); LYMPHOCYTES 8.8 %; LYMPHOCYTES ABSOLUTE 0.69 10/3/uL (0.67-4.30); MEAN CORPUS HGB CONC 33.8 g/dL (32.0-36.0); MEAN CORPUSCULAR HEMOGLOB 31.3 pg (26.0-34.0); MEAN CORPUSCULAR VOLUME 92.7 fL (80-100); MEAN PLATELET VOLUME 10.4 fL (9.2-13.0); MONOCYTES 17.6 %; MONOCYTES ABSOLUTE 1.38 10/3/uL (0.21-1.20); NEUTROPHILS 68.3 %; NEUTROPHILS ABSOLUTE 5.37 10/3/uL (2.02-8.40); RBC DISTRIBUTION WIDTH 16.6 % (12.0-16.0); RED CELL COUNT 2.59 10/6/uL (4.7-6.1); WHITE BLOOD CELLS 7.9 10/3/uL (4.5-10.5)
[2016-12-15 04:42] LABS: MANUAL DIFF NO %; PLATELET COUNT 91 10/3/uL (150-400)
[2016-12-15 04:47] LABS: INTERNATIONAL NORMAL RATI 1.4 UNITS (-); PROTIME (NOT ORD) 16.9 SEC (12.0-14.5)
[2016-12-15 04:54] LABS: ALBUMIN 3.8 G/DL (3.5-5.0); ALKALINE PHOSPHATASE 61 U/L (45-117); BUN (BLOOD UREA NITROGEN) 85 MG/DL (6-23); CALCIUM, SERUM 8.5 MG/DL (8.5-10.4); CHLORIDE, SERUM 107 MMOL/L (96-112); CO2 (CARBON DIOXIDE) 28 MMOL/L (24-34); CREATININE 2.22 MG/DL (0.70-1.30); DIRECT BILIRUBIN 1.6 MG/DL (0.0-0.4); GFR AFRICAN AMERICAN 32 ML/MIN (>=60); GFR NON AFRICAN AMERICAN 28 ML/MIN (>=60); GLUCOSE, SERUM 132 MG/DL (60-99); INDIRECT BILIRUBIN(NOT ORDER) 1.3 MG/DL (0.1-0.9); PHOSPHORUS, SERUM 2.9 MG/DL (2.5-4.5); POTASSIUM, SERUM 3.5 MMOL/L (3.5-5.3); SGOT(AST) 33 U/L (5-40); SGPT(ALT) 8 U/L (5-65); SODIUM, SERUM 147 MMOL/L (135-148); TOTAL BILIRUBIN 2.9 MG/DL (0-1.2); TOTAL PROTEIN 6.5 G/DL (6.0-8.5)
[2016-12-16 03:44] LABS: INTERNATIONAL NORMAL RATI 1.4 UNITS (-); PROTIME (NOT ORD) 17.1 SEC (12.0-14.5)
[2016-12-16 04:07] LABS: BE (BASE EXCESS) 2.6 MEQ/L (0 +/- 2.5); HCO3 (ACTUAL BICARBONATE) 27.3 MEQ/L (23-27); HEMOBLOGIN CONTENT 8.7 G/DL (14-18); INSTRUMENT SERIAL # 11843; METHEMOGLOBIN 0.7 % (0-3); MODE CMV; O2 CONTENT 11.6 VOL% (18-24); PCO2 (CO2 TENSION) 43 MMHG (35-45); PO2 (O2 TENSION) 81 MMHG (79-93); SAMPLE Arterial; TIDAL VOLUME 500 ML; pH 7.42 (7.37-7.43)
[2016-12-16 04:40] LABS: BASOPHILS 0.1 %; BASOPHILS ABSOLUTE 0.01 10/3/uL (0.0-0.16); EOSINOPHILS 1.1 %; EOSINOPHILS ABSOLUTE 0.08 10/3/uL (0.0-0.53); HEMATOCRIT 24.6 % (40.0-51.0); HEMOGLOBIN 8.1 g/dL (13.6-17.8); IMMATURE GRANULOCYTES 1.1 %; IMMATURE GRANULOCYTES ABSOLUTE 0.08 10/3/uL (0.0-0.11); LYMPHOCYTES 9.5 %; LYMPHOCYTES ABSOLUTE 0.72 10/3/uL (0.67-4.30); MANUAL DIFF NO %; MEAN CORPUS HGB CONC 32.9 g/dL (32.0-36.0); MEAN CORPUSCULAR HEMOGLOB 31.2 pg (26.0-34.0); MEAN CORPUSCULAR VOLUME 94.6 fL (80-100); MEAN PLATELET VOLUME 10.3 fL (9.2-13.0); MONOCYTES 6.9 %; MONOCYTES ABSOLUTE 0.52 10/3/uL (0.21-1.20); NEUTROPHILS 81.3 %; NEUTROPHILS ABSOLUTE 6.17 10/3/uL (2.02-8.40); PLATELET COUNT 108 10/3/uL (150-400); RBC DISTRIBUTION WIDTH 16.5 % (12.0-16.0); WHITE BLOOD CELLS 7.6 10/3/uL (4.5-10.5)
[2016-12-16 04:50] LABS: CALCIUM, SERUM 8.4 MG/DL (8.5-10.4); CHLORIDE, SERUM 110 MMOL/L (96-112); CO2 (CARBON DIOXIDE) 27 MMOL/L (24-34); CREATININE 1.99 MG/DL (0.70-1.30); GFR AFRICAN AMERICAN 37 ML/MIN (>=60); GFR NON AFRICAN AMERICAN 32 ML/MIN (>=60); POTASSIUM, SERUM 3.6 MMOL/L (3.5-5.3); SODIUM, SERUM 149 MMOL/L (135-148)
[2016-12-16 04:54] LABS: BUN (BLOOD UREA NITROGEN) 90 MG/DL (6-23); GLUCOSE, SERUM 165 MG/DL (60-99)
[2016-12-16 13:29] LABS: BE (BASE EXCESS) -0.7 MEQ/L (0 +/- 2.5); CARBOXYHEMOGLOBIN 1.2 % (0-3); HCO3 (ACTUAL BICARBONATE) 24.4 MEQ/L (23-27); HEMOBLOGIN CONTENT 8.4 G/DL (14-18); INSTRUMENT SERIAL # 11843; METHEMOGLOBIN 0.7 % (0-3); MODE CPAP; O2 CONTENT 11.1 VOL% (18-24); OPERATOR ID 13715; PCO2 (CO2 TENSION) 42 MMHG (35-45); PO2 (O2 TENSION) 82 MMHG (79-93); PRESSURE SUPPORT 5 cm.H2O; SAMPLE Arterial; pH 7.38 (7.37-7.43)
[2016-12-16 21:11] LABS: BASOPHILS 0.1 %; BASOPHILS ABSOLUTE 0.01 10/3/uL (0.0-0.16); EOSINOPHILS 1.8 %; EOSINOPHILS ABSOLUTE 0.14 10/3/uL (0.0-0.53); HEMATOCRIT 23.6 % (40.0-51.0); HEMOGLOBIN 7.6 g/dL (13.6-17.8); IMMATURE GRANULOCYTES 0.9 %; IMMATURE GRANULOCYTES ABSOLUTE 0.07 10/3/uL (0.0-0.11); LYMPHOCYTES 8.3 %; LYMPHOCYTES ABSOLUTE 0.64 10/3/uL (0.67-4.30); MEAN CORPUS HGB CONC 32.2 g/dL (32.0-36.0); MEAN CORPUSCULAR HEMOGLOB 30.4 pg (26.0-34.0); MEAN CORPUSCULAR VOLUME 94.4 fL (80-100); MEAN PLATELET VOLUME 10.9 fL (9.2-13.0); MONOCYTES 4.7 %; MONOCYTES ABSOLUTE 0.36 10/3/uL (0.21-1.20); NEUTROPHILS 84.2 %; NEUTROPHILS ABSOLUTE 6.48 10/3/uL (2.02-8.40); PLATELET COUNT 120 10/3/uL (150-400); RBC DISTRIBUTION WIDTH 16.5 % (12.0-16.0); WHITE BLOOD CELLS 7.7 10/3/uL (4.5-10.5)
[2016-12-16 21:12] LABS: MANUAL DIFF NO %
[2016-12-16 21:23] LABS: BUN (BLOOD UREA NITROGEN) 87 MG/DL (6-23); CALCIUM, SERUM 8.3 MG/DL (8.5-10.4); CHLORIDE, SERUM 112 MMOL/L (96-112); CO2 (CARBON DIOXIDE) 29 MMOL/L (24-34); CREATININE 1.92 MG/DL (0.70-1.30); GFR AFRICAN AMERICAN 38 ML/MIN (>=60); GFR NON AFRICAN AMERICAN 33 ML/MIN (>=60); GLUCOSE, SERUM 169 MG/DL (60-99); POTASSIUM, SERUM 4.1 MMOL/L (3.5-5.3); SODIUM, SERUM 150 MMOL/L (135-148)
[2016-12-17 03:27] LABS: BE (BASE EXCESS) -1.6 MEQ/L (0 +/- 2.5); HCO3 (ACTUAL BICARBONATE) 23.3 MEQ/L (23-27); HEMOBLOGIN CONTENT 8.2 G/DL (14-18); INSTRUMENT SERIAL # 11843; METHEMOGLOBIN 0.7 % (0-3); MODE CMV; O2 CONTENT 10.7 VOL% (18-24); OPERATOR ID 17370; PCO2 (CO2 TENSION) 39 MMHG (35-45); PO2 (O2 TENSION) 72 MMHG (79-93); SAMPLE Arterial; TIDAL VOLUME 500 ML; pH 7.39 (7.37-7.43)
[2016-12-17 03:58] LABS: BASOPHILS 0.1 %; BASOPHILS ABSOLUTE 0.01 10/3/uL (0.0-0.16); EOSINOPHILS 1.9 %; EOSINOPHILS ABSOLUTE 0.17 10/3/uL (0.0-0.53); HEMATOCRIT 23.2 % (40.0-51.0); HEMOGLOBIN 7.5 g/dL (13.6-17.8); IMMATURE GRANULOCYTES 0.9 %; IMMATURE GRANULOCYTES ABSOLUTE 0.08 10/3/uL (0.0-0.11); LYMPHOCYTES 4.6 %; LYMPHOCYTES ABSOLUTE 0.41 10/3/uL (0.67-4.30); MEAN CORPUS HGB CONC 32.3 g/dL (32.0-36.0); MEAN CORPUSCULAR VOLUME 95.9 fL (80-100); MEAN PLATELET VOLUME 10.7 fL (9.2-13.0); MONOCYTES 4.2 %; MONOCYTES ABSOLUTE 0.37 10/3/uL (0.21-1.20); NEUTROPHILS 88.3 %; NEUTROPHILS ABSOLUTE 7.87 10/3/uL (2.02-8.40); PLATELET COUNT 116 10/3/uL (150-400); RBC DISTRIBUTION WIDTH 16.5 % (12.0-16.0); RED CELL COUNT 2.42 10/6/uL (4.7-6.1); WHITE BLOOD CELLS 8.9 10/3/uL (4.5-10.5)
[2016-12-17 03:59] LABS: MANUAL DIFF NO %
[2016-12-17 04:02] LABS: INTERNATIONAL NORMAL RATI 1.4 UNITS (-); PROTIME (NOT ORD) 17.2 SEC (12.0-14.5)
[2016-12-17 04:12] LABS: ALBUMIN 3.1 G/DL (3.5-5.0); BUN (BLOOD UREA NITROGEN) 82 MG/DL (6-23); CALCIUM, SERUM 8.4 MG/DL (8.5-10.4); CHLORIDE, SERUM 113 MMOL/L (96-112); CO2 (CARBON DIOXIDE) 26 MMOL/L (24-34); CREATININE 1.89 MG/DL (0.70-1.30); GFR AFRICAN AMERICAN 39 ML/MIN (>=60); GFR NON AFRICAN AMERICAN 34 ML/MIN (>=60); GLUCOSE, SERUM 176 MG/DL (60-99); PHOSPHORUS, SERUM 2.8 MG/DL (2.5-4.5); POTASSIUM, SERUM 4.1 MMOL/L (3.5-5.3); SODIUM, SERUM 149 MMOL/L (135-148)
[2016-12-17 05:13] LABS: PARTIAL THROMBO TIME 72.6 SEC (22.5-37.2)
[2016-12-17 09:30] LABS: BE (BASE EXCESS) -1.4 MEQ/L (0 +/- 2.5); CARBOXYHEMOGLOBIN 0.4 % (0-3); DEVICE VM; HCO3 (ACTUAL BICARBONATE) 26.6 MEQ/L (23-27); HEMOBLOGIN CONTENT 9.4 G/DL (14-18); INSTRUMENT SERIAL # 11843; METHEMOGLOBIN 0.7 % (0-3); OPERATOR ID 18642; PCO2 (CO2 TENSION) 63 MMHG (35-45); PO2 (O2 TENSION) 73 MMHG (79-93); SAMPLE Arterial; pH 7.24 (7.37-7.43)
[2016-12-17 10:00] LABS: HEMATOCRIT 26.9 % (40.0-51.0); HEMOGLOBIN 8.6 g/dL (13.6-17.8)
[2016-12-17 11:37] LABS: BE (BASE EXCESS) -0.9 MEQ/L (0 +/- 2.5); CARBOXYHEMOGLOBIN 0.7 % (0-3); HCO3 (ACTUAL BICARBONATE) 24.9 MEQ/L (23-27); HEMOBLOGIN CONTENT 8.2 G/DL (14-18); INSTRUMENT SERIAL # 11843; METHEMOGLOBIN 0.7 % (0-3); MODE CMV; OPERATOR ID 13715; PCO2 (CO2 TENSION) 46 MMHG (35-45); PO2 (O2 TENSION) 89 MMHG (79-93); SAMPLE Arterial; TIDAL VOLUME 500 ML; pH 7.35 (7.37-7.43)
[2016-12-18 03:43] LABS: BE (BASE EXCESS) 1.1 MEQ/L (0 +/- 2.5); CARBOXYHEMOGLOBIN 0.4 % (0-3); HCO3 (ACTUAL BICARBONATE) 25.9 MEQ/L (23-27); HEMOBLOGIN CONTENT 8.5 G/DL (14-18); INSTRUMENT SERIAL # 11843; METHEMOGLOBIN 0.7 % (0-3); PCO2 (CO2 TENSION) 42 MMHG (35-45); PO2 (O2 TENSION) 78 MMHG (79-93); pH 7.41 (7.37-7.43)
[2016-12-18 03:44] LABS: MODE CMV; O2 CONTENT 11.3 VOL% (18-24); OPERATOR ID 23712; SAMPLE Arterial; TIDAL VOLUME 500 ML
[2016-12-18 04:20] LABS: BASOPHILS 0.2 %; BASOPHILS ABSOLUTE 0.02 10/3/uL (0.0-0.16); EOSINOPHILS 0.7 %; EOSINOPHILS ABSOLUTE 0.08 10/3/uL (0.0-0.53); HEMOGLOBIN 7.3 g/dL (13.6-17.8); IMMATURE GRANULOCYTES ABSOLUTE 0.12 10/3/uL (0.0-0.11); LYMPHOCYTES 7.3 %; LYMPHOCYTES ABSOLUTE 0.89 10/3/uL (0.67-4.30); MEAN CORPUSCULAR HEMOGLOB 30.7 pg (26.0-34.0); MEAN CORPUSCULAR VOLUME 95.8 fL (80-100); MEAN PLATELET VOLUME 10.7 fL (9.2-13.0); MONOCYTES 4.9 %; NEUTROPHILS 85.9 %; NEUTROPHILS ABSOLUTE 10.53 10/3/uL (2.02-8.40); PLATELET COUNT 138 10/3/uL (150-400); RBC DISTRIBUTION WIDTH 16.4 % (12.0-16.0); RED CELL COUNT 2.38 10/6/uL (4.7-6.1); WHITE BLOOD CELLS 12.2 10/3/uL (4.5-10.5)
[2016-12-18 04:23] LABS: CALCIUM, SERUM 8.4 MG/DL (8.5-10.4); CHLORIDE, SERUM 112 MMOL/L (96-112); CO2 (CARBON DIOXIDE) 27 MMOL/L (24-34); GFR AFRICAN AMERICAN 26 ML/MIN (>=60); GFR NON AFRICAN AMERICAN 22 ML/MIN (>=60); GLUCOSE, SERUM 171 MG/DL (60-99); POTASSIUM, SERUM 3.4 MMOL/L (3.5-5.3); SODIUM, SERUM 151 MMOL/L (135-148)
[2016-12-18 04:24] LABS: BUN (BLOOD UREA NITROGEN) 105 MG/DL (6-23); CREATININE 2.65 MG/DL (0.70-1.30); HEMATOCRIT 22.8 % (40.0-51.0); MANUAL DIFF NO %
[2016-12-18 07:50] LABS: INTERNATIONAL NORMAL RATI 1.4 UNITS (-)
[2016-12-18 19:58] LABS: POTASSIUM, SERUM 3.5 MMOL/L (3.5-5.3)
[2016-12-19 03:40] LABS: BASOPHILS 0.4 %; BASOPHILS ABSOLUTE 0.05 10/3/uL (0.0-0.16); EOSINOPHILS 3.6 %; EOSINOPHILS ABSOLUTE 0.44 10/3/uL (0.0-0.53); HEMATOCRIT 21.2 % (40.0-51.0); IMMATURE GRANULOCYTES ABSOLUTE 0.12 10/3/uL (0.0-0.11); LYMPHOCYTES 6.1 %; LYMPHOCYTES ABSOLUTE 0.74 10/3/uL (0.67-4.30); MEAN CORPUS HGB CONC 32.1 g/dL (32.0-36.0); MEAN CORPUSCULAR HEMOGLOB 30.5 pg (26.0-34.0); MEAN CORPUSCULAR VOLUME 95.1 fL (80-100); MEAN PLATELET VOLUME 10.8 fL (9.2-13.0); MONOCYTES 4.9 %; MONOCYTES ABSOLUTE 0.59 10/3/uL (0.21-1.20); NEUTROPHILS ABSOLUTE 10.12 10/3/uL (2.02-8.40); PLATELET COUNT 159 10/3/uL (150-400); RBC DISTRIBUTION WIDTH 16.5 % (12.0-16.0); RED CELL COUNT 2.23 10/6/uL (4.7-6.1); WHITE BLOOD CELLS 12.1 10/3/uL (4.5-10.5)
[2016-12-19 03:50] LABS: HEMOGLOBIN 6.8 g/dL (13.6-17.8); MANUAL DIFF NO %
[2016-12-19 03:51] LABS: CALCIUM, SERUM 8.2 MG/DL (8.5-10.4); CHLORIDE, SERUM 111 MMOL/L (96-112); CO2 (CARBON DIOXIDE) 26 MMOL/L (24-34); CREATININE 2.96 MG/DL (0.70-1.30); GFR AFRICAN AMERICAN 23 ML/MIN (>=60); GFR NON AFRICAN AMERICAN 20 ML/MIN (>=60); SODIUM, SERUM 150 MMOL/L (135-148)
[2016-12-19 03:53] LABS: BUN (BLOOD UREA NITROGEN) 114 MG/DL (6-23); GLUCOSE, SERUM 125 MG/DL (60-99)
[2016-12-19 05:04] LABS: INTERNATIONAL NORMAL RATI 1.4 UNITS (-); PROTIME (NOT ORD) 16.7 SEC (12.0-14.5)
[2016-12-19 13:08] LABS: ALBUMIN 2.6 G/DL (3.5-5.0); CALCIUM, SERUM 8.3 MG/DL (8.5-10.4); CHLORIDE, SERUM 113 MMOL/L (96-112); CO2 (CARBON DIOXIDE) 25 MMOL/L (24-34); GFR AFRICAN AMERICAN 22 ML/MIN (>=60); GFR NON AFRICAN AMERICAN 19 ML/MIN (>=60); POTASSIUM, SERUM 4.1 MMOL/L (3.5-5.3); SGOT(AST) 33 U/L (5-40); SODIUM, SERUM 151 MMOL/L (135-148); TOTAL BILIRUBIN 2.6 MG/DL (0-1.2); TOTAL PROTEIN 6.1 G/DL (6.0-8.5)
[2016-12-19 13:10] LABS: A/G RATIO 0.7 (0.7-1.9); ALKALINE PHOSPHATASE 76 U/L (45-117); BUN (BLOOD UREA NITROGEN) 115 MG/DL (6-23); GLOBULIN 3.5 G/DL (2.5-4.1); GLUCOSE, SERUM 164 MG/DL (60-99); PHOSPHORUS, SERUM 4.6 MG/DL (2.5-4.5); SGPT(ALT) 6 U/L (5-65)
[2016-12-19 13:13] LABS: BE (BASE EXCESS) 0.7 MEQ/L (0 +/- 2.5); CARBOXYHEMOGLOBIN 0.9 % (0-3); HCO3 (ACTUAL BICARBONATE) 26.5 MEQ/L (23-27); HEMOBLOGIN CONTENT 9.1 G/DL (14-18); INSTRUMENT SERIAL # 11843; METHEMOGLOBIN 0.6 % (0-3); MODE CMV; O2 CONTENT 12.2 VOL% (18-24); OPERATOR ID 19104; PCO2 (CO2 TENSION) 48 MMHG (35-45); PO2 (O2 TENSION) 89 MMHG (79-93); SAMPLE Arterial; TIDAL VOLUME 500 ML; pH 7.36 (7.37-7.43)
[2016-12-19 15:02] LABS: PLATELET COUNT 156 10/3/uL (150-400)
[2016-12-19 15:30] LABS: INTERNATIONAL NORMAL RATI 1.3 UNITS (-); PARTIAL THROMBO TIME 34.2 SEC (22.5-37.2); PROTIME (NOT ORD) 16.4 SEC (12.0-14.5)
[2016-12-19 16:24] LABS: BASOPHILS 0.3 %; BASOPHILS ABSOLUTE 0.04 10/3/uL (0.0-0.16); EOSINOPHILS 3.7 %; EOSINOPHILS ABSOLUTE 0.44 10/3/uL (0.0-0.53); HEMATOCRIT 23.1 % (40.0-51.0); HEMOGLOBIN 7.5 g/dL (13.6-17.8); IMMATURE GRANULOCYTES ABSOLUTE 0.12 10/3/uL (0.0-0.11); LYMPHOCYTES ABSOLUTE 0.71 10/3/uL (0.67-4.30); MEAN CORPUS HGB CONC 32.5 g/dL (32.0-36.0); MEAN CORPUSCULAR HEMOGLOB 29.9 pg (26.0-34.0); MEAN PLATELET VOLUME 10.6 fL (9.2-13.0); MONOCYTES 6.1 %; MONOCYTES ABSOLUTE 0.73 10/3/uL (0.21-1.20); NEUTROPHILS 82.9 %; NEUTROPHILS ABSOLUTE 9.89 10/3/uL (2.02-8.40); RED CELL COUNT 2.51 10/6/uL (4.7-6.1); WHITE BLOOD CELLS 11.9 10/3/uL (4.5-10.5)
[2016-12-19 16:27] LABS: MANUAL DIFF NO %
[2016-12-19 22:02] LABS: BASOPHILS 0.3 %; BASOPHILS ABSOLUTE 0.03 10/3/uL (0.0-0.16); EOSINOPHILS 4.4 %; EOSINOPHILS ABSOLUTE 0.51 10/3/uL (0.0-0.53); HEMATOCRIT 23.3 % (40.0-51.0); HEMOGLOBIN 7.6 g/dL (13.6-17.8); IMMATURE GRANULOCYTES 1.1 %; IMMATURE GRANULOCYTES ABSOLUTE 0.13 10/3/uL (0.0-0.11); LYMPHOCYTES 6.9 %; LYMPHOCYTES ABSOLUTE 0.81 10/3/uL (0.67-4.30); MEAN CORPUS HGB CONC 32.6 g/dL (32.0-36.0); MEAN CORPUSCULAR VOLUME 92.1 fL (80-100); MEAN PLATELET VOLUME 10.1 fL (9.2-13.0); MONOCYTES 3.6 %; MONOCYTES ABSOLUTE 0.42 10/3/uL (0.21-1.20); NEUTROPHILS 83.7 %; NEUTROPHILS ABSOLUTE 9.78 10/3/uL (2.02-8.40); PLATELET COUNT 143 10/3/uL (150-400); RBC DISTRIBUTION WIDTH 18.3 % (12.0-16.0); RED CELL COUNT 2.53 10/6/uL (4.7-6.1); WHITE BLOOD CELLS 11.7 10/3/uL (4.5-10.5)
[2016-12-19 22:04] LABS: MANUAL DIFF NO %
[2016-12-19 22:10] LABS: CALCIUM, SERUM 7.8 MG/DL (8.5-10.4); CHLORIDE, SERUM 110 MMOL/L (96-112); CO2 (CARBON DIOXIDE) 25 MMOL/L (24-34); GFR AFRICAN AMERICAN 33 ML/MIN (>=60); GFR NON AFRICAN AMERICAN 28 ML/MIN (>=60); GLUCOSE, SERUM 168 MG/DL (60-99); POTASSIUM, SERUM 3.7 MMOL/L (3.5-5.3); SODIUM, SERUM 148 MMOL/L (135-148)
[2016-12-19 22:11] LABS: BUN (BLOOD UREA NITROGEN) 83 MG/DL (6-23); CREATININE 2.18 MG/DL (0.70-1.30)
[2016-12-20 03:43] LABS: BE (BASE EXCESS) -3.7 MEQ/L (0 +/- 2.5); CARBOXYHEMOGLOBIN 1.1 % (0-3); HCO3 (ACTUAL BICARBONATE) 21.7 MEQ/L (23-27); HEMOBLOGIN CONTENT 8.5 G/DL (14-18); INSTRUMENT SERIAL # 11843; METHEMOGLOBIN 0.6 % (0-3); MODE CMV; O2 CONTENT 11.5 VOL% (18-24); PCO2 (CO2 TENSION) 41 MMHG (35-45); PO2 (O2 TENSION) 95 MMHG (79-93); SAMPLE Arterial; TIDAL VOLUME 500 ML; pH 7.35 (7.37-7.43)
[2016-12-20 04:00] LABS: BASOPHILS 0.2 %; BASOPHILS ABSOLUTE 0.03 10/3/uL (0.0-0.16); EOSINOPHILS 4.4 %; EOSINOPHILS ABSOLUTE 0.56 10/3/uL (0.0-0.53); HEMATOCRIT 24.4 % (40.0-51.0); HEMOGLOBIN 7.8 g/dL (13.6-17.8); IMMATURE GRANULOCYTES 0.9 %; IMMATURE GRANULOCYTES ABSOLUTE 0.12 10/3/uL (0.0-0.11); LYMPHOCYTES 5.3 %; LYMPHOCYTES ABSOLUTE 0.67 10/3/uL (0.67-4.30); MEAN CORPUSCULAR HEMOGLOB 30.1 pg (26.0-34.0); MEAN CORPUSCULAR VOLUME 94.2 fL (80-100); MEAN PLATELET VOLUME 10.4 fL (9.2-13.0); MONOCYTES 4.6 %; MONOCYTES ABSOLUTE 0.58 10/3/uL (0.21-1.20); NEUTROPHILS 84.6 %; NEUTROPHILS ABSOLUTE 10.72 10/3/uL (2.02-8.40); PLATELET COUNT 156 10/3/uL (150-400); RBC DISTRIBUTION WIDTH 18.3 % (12.0-16.0); RED CELL COUNT 2.59 10/6/uL (4.7-6.1); WHITE BLOOD CELLS 12.7 10/3/uL (4.5-10.5)
[2016-12-20 04:01] LABS: MANUAL DIFF NO %
[2016-12-20 04:10] LABS: INTERNATIONAL NORMAL RATI 1.4 UNITS (-); PROTIME (NOT ORD) 16.8 SEC (12.0-14.5)
[2016-12-20 04:12] LABS: CALCIUM, SERUM 7.6 MG/DL (8.5-10.4); CHLORIDE, SERUM 108 MMOL/L (96-112); CO2 (CARBON DIOXIDE) 23 MMOL/L (24-34); CREATININE 1.76 MG/DL (0.70-1.30); GFR AFRICAN AMERICAN 43 ML/MIN (>=60); GFR NON AFRICAN AMERICAN 37 ML/MIN (>=60); GLUCOSE, SERUM 152 MG/DL (60-99); POTASSIUM, SERUM 3.7 MMOL/L (3.5-5.3); SODIUM, SERUM 144 MMOL/L (135-148)
[2016-12-20 04:13] LABS: BUN (BLOOD UREA NITROGEN) 65 MG/DL (6-23); PHOSPHORUS, SERUM 2.9 MG/DL (2.5-4.5)
[2016-12-20 10:28] LABS: BASOPHILS 0.2 %; BASOPHILS ABSOLUTE 0.03 10/3/uL (0.0-0.16); EOSINOPHILS 5.6 %; EOSINOPHILS ABSOLUTE 0.76 10/3/uL (0.0-0.53); HEMATOCRIT 24.3 % (40.0-51.0); HEMOGLOBIN 7.7 g/dL (13.6-17.8); IMMATURE GRANULOCYTES 1.2 %; IMMATURE GRANULOCYTES ABSOLUTE 0.16 10/3/uL (0.0-0.11); LYMPHOCYTES 6.2 %; LYMPHOCYTES ABSOLUTE 0.83 10/3/uL (0.67-4.30); MEAN CORPUS HGB CONC 31.7 g/dL (32.0-36.0); MEAN CORPUSCULAR HEMOGLOB 29.5 pg (26.0-34.0); MEAN CORPUSCULAR VOLUME 93.1 fL (80-100); MEAN PLATELET VOLUME 10.6 fL (9.2-13.0); MONOCYTES 3.7 %; NEUTROPHILS 83.1 %; PLATELET COUNT 160 10/3/uL (150-400); RBC DISTRIBUTION WIDTH 18.3 % (12.0-16.0); RED CELL COUNT 2.61 10/6/uL (4.7-6.1); WHITE BLOOD CELLS 13.5 10/3/uL (4.5-10.5)
[2016-12-20 10:31] LABS: MANUAL DIFF NO %
[2016-12-20 10:36] LABS: CALCIUM, SERUM 7.8 MG/DL (8.5-10.4); CHLORIDE, SERUM 107 MMOL/L (96-112); CO2 (CARBON DIOXIDE) 24 MMOL/L (24-34); CREATININE 1.45 MG/DL (0.70-1.30); GFR AFRICAN AMERICAN 54 ML/MIN (>=60); GFR NON AFRICAN AMERICAN 46 ML/MIN (>=60); GLUCOSE, SERUM 169 MG/DL (60-99); SODIUM, SERUM 142 MMOL/L (135-148)
[2016-12-20 10:37] LABS: BUN (BLOOD UREA NITROGEN) 51 MG/DL (6-23)
[2016-12-20 16:39] LABS: BASOPHILS 0.2 %; BASOPHILS ABSOLUTE 0.03 10/3/uL (0.0-0.16); EOSINOPHILS 3.8 %; EOSINOPHILS ABSOLUTE 0.54 10/3/uL (0.0-0.53); HEMATOCRIT 23.8 % (40.0-51.0); HEMOGLOBIN 7.6 g/dL (13.6-17.8); IMMATURE GRANULOCYTES 1.1 %; IMMATURE GRANULOCYTES ABSOLUTE 0.16 10/3/uL (0.0-0.11); LYMPHOCYTES 3.1 %; LYMPHOCYTES ABSOLUTE 0.44 10/3/uL (0.67-4.30); MEAN CORPUS HGB CONC 31.9 g/dL (32.0-36.0); MEAN CORPUSCULAR HEMOGLOB 30.2 pg (26.0-34.0); MEAN CORPUSCULAR VOLUME 94.4 fL (80-100); MEAN PLATELET VOLUME 10.3 fL (9.2-13.0); MONOCYTES 7.5 %; MONOCYTES ABSOLUTE 1.06 10/3/uL (0.21-1.20); NEUTROPHILS 84.3 %; NEUTROPHILS ABSOLUTE 11.81 10/3/uL (2.02-8.40); PLATELET COUNT 157 10/3/uL (150-400); RBC DISTRIBUTION WIDTH 17.9 % (12.0-16.0); RED CELL COUNT 2.52 10/6/uL (4.7-6.1)
[2016-12-20 16:44] LABS: MANUAL DIFF NO %
[2016-12-20 16:49] LABS: CALCIUM, SERUM 7.5 MG/DL (8.5-10.4); CHLORIDE, SERUM 106 MMOL/L (96-112); CO2 (CARBON DIOXIDE) 25 MMOL/L (24-34); CREATININE 1.25 MG/DL (0.70-1.30); GFR AFRICAN AMERICAN 64 ML/MIN (>=60); GFR NON AFRICAN AMERICAN 56 ML/MIN (>=60); GLUCOSE, SERUM 144 MG/DL (60-99); PHOSPHORUS, SERUM 2.3 MG/DL (2.5-4.5); POTASSIUM, SERUM 3.8 MMOL/L (3.5-5.3); SODIUM, SERUM 141 MMOL/L (135-148)
[2016-12-20 16:50] LABS: BUN (BLOOD UREA NITROGEN) 43 MG/DL (6-23)
[2016-12-20 16:51] LABS: INTERNATIONAL NORMAL RATI 1.4 UNITS (-); PROTIME (NOT ORD) 17.1 SEC (12.0-14.5)
[2016-12-20 22:38] LABS: HEMATOCRIT 22.6 % (40.0-51.0); HEMOGLOBIN 7.4 g/dL (13.6-17.8); MEAN CORPUS HGB CONC 32.7 g/dL (32.0-36.0); MEAN CORPUSCULAR HEMOGLOB 30.6 pg (26.0-34.0); MEAN CORPUSCULAR VOLUME 93.4 fL (80-100); MEAN PLATELET VOLUME 9.8 fL (9.2-13.0); PLATELET COUNT 148 10/3/uL (150-400); RBC DISTRIBUTION WIDTH 17.8 % (12.0-16.0); RED CELL COUNT 2.42 10/6/uL (4.7-6.1); WHITE BLOOD CELLS 12.9 10/3/uL (4.5-10.5)
[2016-12-20 22:39] LABS: MANUAL DIFF YES %
[2016-12-20 22:50] LABS: CALCIUM, SERUM 7.2 MG/DL (8.5-10.4); CHLORIDE, SERUM 107 MMOL/L (96-112); CO2 (CARBON DIOXIDE) 23 MMOL/L (24-34); CREATININE 1.14 MG/DL (0.70-1.30); GFR AFRICAN AMERICAN 72 ML/MIN (>=60); GFR NON AFRICAN AMERICAN 62 ML/MIN (>=60); GLUCOSE, SERUM 133 MG/DL (60-99); POTASSIUM, SERUM 4.1 MMOL/L (3.5-5.3); SODIUM, SERUM 143 MMOL/L (135-148)
[2016-12-20 22:53] LABS: BUN (BLOOD UREA NITROGEN) 34 MG/DL (6-23)
[2016-12-20 23:25] LABS: ANISOCYTOSIS 1+ (5-10/OIF) (0-5/OIF); BAND NEUTROPHILS 2 %; EOSINOPHILS 4 %; EOSINOPHILS ABSOLUTE (CALC) 0.52 10/3/uL (0.0-0.53); LYMPHOCYTES 6 %; LYMPHOCYTES ABSOLUTE (CALC) 0.77 10/3/uL (0.67-4.30); MONOCYTES 3 %; MONOCYTES ABSOLUTE (CALC) 0.39 10/3/uL (0.21-1.20); NEUTROPHILS ABSOLUTE (CALC) 11.22 10/3/uL (2.02-8.40); SEGMENTED NEUTROPHIL (0) 85 %; TOTAL NUCLEATED CELLS 100
[2016-12-20 23:26] LABS: PLATELET ESTIMATE SLT DEC (ADEQUATE)
[2016-12-21 03:59] LABS: BE (BASE EXCESS) -3.1 MEQ/L (0 +/- 2.5); HCO3 (ACTUAL BICARBONATE) 21.2 MEQ/L (23-27); HEMOBLOGIN CONTENT 8.2 G/DL (14-18); INSTRUMENT SERIAL # 11843; METHEMOGLOBIN 0.6 % (0-3); MODE CMV; O2 CONTENT 11.2 VOL% (18-24); OPERATOR ID 13415; PCO2 (CO2 TENSION) 34 MMHG (35-45); PO2 (O2 TENSION) 102 MMHG (79-93); SAMPLE Arterial; TIDAL VOLUME 500 ML; pH 7.41 (7.37-7.43)
[2016-12-21 04:25] LABS: BASOPHILS 0.5 %; BASOPHILS ABSOLUTE 0.06 10/3/uL (0.0-0.16); EOSINOPHILS 2.9 %; EOSINOPHILS ABSOLUTE 0.38 10/3/uL (0.0-0.53); HEMATOCRIT 23.1 % (40.0-51.0); HEMOGLOBIN 7.4 g/dL (13.6-17.8); IMMATURE GRANULOCYTES 1.3 %; IMMATURE GRANULOCYTES ABSOLUTE 0.17 10/3/uL (0.0-0.11); LYMPHOCYTES 5.6 %; LYMPHOCYTES ABSOLUTE 0.74 10/3/uL (0.67-4.30); MEAN CORPUSCULAR HEMOGLOB 29.6 pg (26.0-34.0); MEAN CORPUSCULAR VOLUME 92.4 fL (80-100); MEAN PLATELET VOLUME 10.3 fL (9.2-13.0); MONOCYTES 8.3 %; MONOCYTES ABSOLUTE 1.09 10/3/uL (0.21-1.20); NEUTROPHILS 81.4 %; NEUTROPHILS ABSOLUTE 10.66 10/3/uL (2.02-8.40); PLATELET COUNT 160 10/3/uL (150-400); RBC DISTRIBUTION WIDTH 17.5 % (12.0-16.0); WHITE BLOOD CELLS 13.1 10/3/uL (4.5-10.5)
[2016-12-21 04:26] LABS: MANUAL DIFF NO %
[2016-12-21 04:37] LABS: INTERNATIONAL NORMAL RATI 1.4 UNITS (-); PROTIME (NOT ORD) 17.4 SEC (12.0-14.5)
[2016-12-21 04:38] LABS: PARTIAL THROMBO TIME 36.7 SEC (22.5-37.2)
[2016-12-21 04:47] LABS: CALCIUM, SERUM 7.4 MG/DL (8.5-10.4); CHLORIDE, SERUM 106 MMOL/L (96-112); CO2 (CARBON DIOXIDE) 24 MMOL/L (24-34); CREATININE 1.05 MG/DL (0.70-1.30); GFR AFRICAN AMERICAN 80 ML/MIN (>=60); GFR NON AFRICAN AMERICAN 69 ML/MIN (>=60); GLUCOSE, SERUM 137 MG/DL (60-99); PHOSPHORUS, SERUM 1.7 MG/DL (2.5-4.5); POTASSIUM, SERUM 3.6 MMOL/L (3.5-5.3); SODIUM, SERUM 142 MMOL/L (135-148)
[2016-12-21 04:50] LABS: BUN (BLOOD UREA NITROGEN) 29 MG/DL (6-23)
[2016-12-21 10:17] LABS: HEMATOCRIT 23.1 % (40.0-51.0); HEMOGLOBIN 7.4 g/dL (13.6-17.8); PLATELET COUNT 163 10/3/uL (150-400)
[2016-12-21 10:31] LABS: CALCIUM, SERUM 7.3 MG/DL (8.5-10.4); CHLORIDE, SERUM 107 MMOL/L (96-112); CO2 (CARBON DIOXIDE) 23 MMOL/L (24-34); CREATININE 1.08 MG/DL (0.70-1.30); GFR AFRICAN AMERICAN 77 ML/MIN (>=60); GFR NON AFRICAN AMERICAN 66 ML/MIN (>=60); GLUCOSE, SERUM 136 MG/DL (60-99); POTASSIUM, SERUM 3.4 MMOL/L (3.5-5.3); SODIUM, SERUM 142 MMOL/L (135-148)
[2016-12-21 10:32] LABS: BUN (BLOOD UREA NITROGEN) 24 MG/DL (6-23)
[2016-12-21 13:05] LABS: ALBUMIN 2.6 G/DL (3.5-5.0); BUN (BLOOD UREA NITROGEN) 23 MG/DL (6-23); CALCIUM, SERUM 7.4 MG/DL (8.5-10.4); CHLORIDE, SERUM 106 MMOL/L (96-112); CO2 (CARBON DIOXIDE) 24 MMOL/L (24-34); CREATININE 1.02 MG/DL (0.70-1.30); GFR AFRICAN AMERICAN 82 ML/MIN (>=60); GFR NON AFRICAN AMERICAN 71 ML/MIN (>=60); GLUCOSE, SERUM 147 MG/DL (60-99); IRON, SERUM 70 MCG/DL (35-150); POTASSIUM, SERUM 3.2 MMOL/L (3.5-5.3); SODIUM, SERUM 141 MMOL/L (135-148)
[2016-12-21 13:08] LABS: PHOSPHORUS, SERUM 3.2 MG/DL (2.5-4.5)
[2016-12-21 13:13] LABS: PREALBUMIN 11.4 MG/DL (17.0-43.0)
[2016-12-21 16:08] LABS: HEMATOCRIT 21.7 % (40.0-51.0); PLATELET COUNT 146 10/3/uL (150-400)
[2016-12-21 16:09] LABS: HEMOGLOBIN 6.9 g/dL (13.6-17.8)
[2016-12-21 16:23] LABS: BUN (BLOOD UREA NITROGEN) 24 MG/DL (6-23); CHLORIDE, SERUM 107 MMOL/L (96-112); CO2 (CARBON DIOXIDE) 22 MMOL/L (24-34); CREATININE 1.06 MG/DL (0.70-1.30); GFR AFRICAN AMERICAN 79 ML/MIN (>=60); GFR NON AFRICAN AMERICAN 68 ML/MIN (>=60); GLUCOSE, SERUM 162 MG/DL (60-99); POTASSIUM, SERUM 3.8 MMOL/L (3.5-5.3); SODIUM, SERUM 143 MMOL/L (135-148)
[2016-12-21 22:31] LABS: HEMOGLOBIN 8.1 g/dL (13.6-17.8); MEAN CORPUS HGB CONC 32.1 g/dL (32.0-36.0); MEAN CORPUSCULAR HEMOGLOB 29.8 pg (26.0-34.0); MEAN CORPUSCULAR VOLUME 92.6 fL (80-100); MEAN PLATELET VOLUME 10.3 fL (9.2-13.0); PLATELET COUNT 144 10/3/uL (150-400); RBC DISTRIBUTION WIDTH 17.1 % (12.0-16.0); RED CELL COUNT 2.72 10/6/uL (4.7-6.1); WHITE BLOOD CELLS 12.1 10/3/uL (4.5-10.5)
[2016-12-21 22:33] LABS: HEMATOCRIT 25.2 % (40.0-51.0); MANUAL DIFF YES %
[2016-12-21 22:37] LABS: CALCIUM, SERUM 7.1 MG/DL (8.5-10.4); CHLORIDE, SERUM 106 MMOL/L (96-112); CO2 (CARBON DIOXIDE) 22 MMOL/L (24-34); CREATININE 0.93 MG/DL (0.70-1.30); GFR AFRICAN AMERICAN 92 ML/MIN (>=60); GFR NON AFRICAN AMERICAN 79 ML/MIN (>=60); GLUCOSE, SERUM 185 MG/DL (60-99); POTASSIUM, SERUM 3.5 MMOL/L (3.5-5.3); SODIUM, SERUM 142 MMOL/L (135-148)
[2016-12-21 22:38] LABS: BUN (BLOOD UREA NITROGEN) 20 MG/DL (6-23)
[2016-12-21 23:03] LABS: BAND NEUTROPHILS 3 %; BASOPHILS 1 %; BASOPHILS ABSOLUTE (CALC) 0.12 10/3/uL (0.0-0.16); EOSINOPHILS 1 %; EOSINOPHILS ABSOLUTE (CALC) 0.12 10/3/uL (0.0-0.53); LYMPHOCYTES 3 %; LYMPHOCYTES ABSOLUTE (CALC) 0.36 10/3/uL (0.67-4.30); MONOCYTES 4 %; MONOCYTES ABSOLUTE (CALC) 0.48 10/3/uL (0.21-1.20); NEUTROPHILS ABSOLUTE (CALC) 11.01 10/3/uL (2.02-8.40); SEGMENTED NEUTROPHIL (0) 88 %; TOTAL NUCLEATED CELLS 100
[2016-12-21 23:04] LABS: ANISOCYTOSIS 1+ (5-10/OIF) (0-5/OIF); PLATELET ESTIMATE SLT DEC (ADEQUATE)
[2016-12-22 03:35] LABS: INSTRUMENT SERIAL # 11843; PCO2 (CO2 TENSION) 33 MMHG (35-45)
[2016-12-22 03:36] LABS: ALLENS TEST Pos; BE (BASE EXCESS) -4.4 MEQ/L (0 +/- 2.5); CARBOXYHEMOGLOBIN 0.8 % (0-3); HCO3 (ACTUAL BICARBONATE) 19.8 MEQ/L (23-27); METHEMOGLOBIN 0.6 % (0-3); MODE CMV; O2 CONTENT 12.4 VOL% (18-24); OPERATOR ID 17370; PO2 (O2 TENSION) 112 MMHG (79-93); SAMPLE Arterial; TIDAL VOLUME 500 ML
[2016-12-22 04:43] LABS: BASOPHILS 0.3 %; BASOPHILS ABSOLUTE 0.03 10/3/uL (0.0-0.16); EOSINOPHILS 2.8 %; EOSINOPHILS ABSOLUTE 0.33 10/3/uL (0.0-0.53); HEMATOCRIT 25.1 % (40.0-51.0); HEMOGLOBIN 8.2 g/dL (13.6-17.8); IMMATURE GRANULOCYTES 1.8 %; IMMATURE GRANULOCYTES ABSOLUTE 0.21 10/3/uL (0.0-0.11); LYMPHOCYTES 7.5 %; LYMPHOCYTES ABSOLUTE 0.87 10/3/uL (0.67-4.30); MEAN CORPUS HGB CONC 32.7 g/dL (32.0-36.0); MEAN CORPUSCULAR VOLUME 91.9 fL (80-100); MONOCYTES 5.8 %; MONOCYTES ABSOLUTE 0.68 10/3/uL (0.21-1.20); NEUTROPHILS 81.8 %; NEUTROPHILS ABSOLUTE 9.52 10/3/uL (2.02-8.40); PLATELET COUNT 160 10/3/uL (150-400); RBC DISTRIBUTION WIDTH 17.5 % (12.0-16.0); RED CELL COUNT 2.73 10/6/uL (4.7-6.1); WHITE BLOOD CELLS 11.6 10/3/uL (4.5-10.5)
[2016-12-22 04:50] LABS: MANUAL DIFF NO %
[2016-12-22 05:01] LABS: BUN (BLOOD UREA NITROGEN) 15 MG/DL (6-23); CHLORIDE, SERUM 106 MMOL/L (96-112); CO2 (CARBON DIOXIDE) 23 MMOL/L (24-34); CREATININE 0.79 MG/DL (0.70-1.30); GFR AFRICAN AMERICAN 101 ML/MIN (>=60); GFR NON AFRICAN AMERICAN 87 ML/MIN (>=60); GLUCOSE, SERUM 115 MG/DL (60-99); POTASSIUM, SERUM 3.8 MMOL/L (3.5-5.3); SODIUM, SERUM 141 MMOL/L (135-148)
[2016-12-22 05:02] LABS: PHOSPHORUS, SERUM 1.7 MG/DL (2.5-4.5)
[2016-12-22 05:40] LABS: PROCALCITONIN 0.83 ng/mL (<0.5)
[2016-12-22 10:15] LABS: BASOPHILS 0.2 %; BASOPHILS ABSOLUTE 0.03 10/3/uL (0.0-0.16); EOSINOPHILS 2.4 %; EOSINOPHILS ABSOLUTE 0.31 10/3/uL (0.0-0.53); HEMATOCRIT 25.1 % (40.0-51.0); HEMOGLOBIN 8.1 g/dL (13.6-17.8); IMMATURE GRANULOCYTES 1.8 %; IMMATURE GRANULOCYTES ABSOLUTE 0.24 10/3/uL (0.0-0.11); LYMPHOCYTES 5.5 %; LYMPHOCYTES ABSOLUTE 0.73 10/3/uL (0.67-4.30); MEAN CORPUS HGB CONC 32.3 g/dL (32.0-36.0); MEAN CORPUSCULAR HEMOGLOB 29.6 pg (26.0-34.0); MEAN CORPUSCULAR VOLUME 91.6 fL (80-100); MEAN PLATELET VOLUME 10.1 fL (9.2-13.0); MONOCYTES 5.5 %; MONOCYTES ABSOLUTE 0.72 10/3/uL (0.21-1.20); NEUTROPHILS 84.6 %; NEUTROPHILS ABSOLUTE 11.16 10/3/uL (2.02-8.40); PLATELET COUNT 153 10/3/uL (150-400); RBC DISTRIBUTION WIDTH 17.7 % (12.0-16.0); RED CELL COUNT 2.74 10/6/uL (4.7-6.1); WHITE BLOOD CELLS 13.2 10/3/uL (4.5-10.5)
[2016-12-22 10:16] LABS: MANUAL DIFF NO %
[2016-12-22 10:30] LABS: BUN (BLOOD UREA NITROGEN) 14 MG/DL (6-23); CALCIUM, SERUM 7.4 MG/DL (8.5-10.4); CHLORIDE, SERUM 107 MMOL/L (96-112); CO2 (CARBON DIOXIDE) 22 MMOL/L (24-34); CREATININE 0.85 MG/DL (0.70-1.30); GFR AFRICAN AMERICAN 98 ML/MIN (>=60); GFR NON AFRICAN AMERICAN 85 ML/MIN (>=60); GLUCOSE, SERUM 135 MG/DL (60-99); POTASSIUM, SERUM 3.9 MMOL/L (3.5-5.3); SODIUM, SERUM 142 MMOL/L (135-148)
[2016-12-22 14:36] LABS: TEG - ANGLE 74.7 DEG (53-72); TEG - MAXIMUM AMPLITUDE 69.2 MM (50-70); TEG - RATE 6.6 MIN (5.0-10.0)
[2016-12-22 14:37] LABS: MAX AMP (AA) 61.8 MM (55-74); TEG - COAGULATION INDEX 1.7 (-3 TO 3); TEG ASPIRIN (AA) 16.3 % INHIB (<40)
[2016-12-22 18:48] LABS: BASOPHILS 0.3 %; BASOPHILS ABSOLUTE 0.04 10/3/uL (0.0-0.16); EOSINOPHILS 1.6 %; EOSINOPHILS ABSOLUTE 0.18 10/3/uL (0.0-0.53); HEMOGLOBIN 8.2 g/dL (13.6-17.8); IMMATURE GRANULOCYTES 2.3 %; IMMATURE GRANULOCYTES ABSOLUTE 0.26 10/3/uL (0.0-0.11); LYMPHOCYTES 7.3 %; LYMPHOCYTES ABSOLUTE 0.84 10/3/uL (0.67-4.30); MEAN CORPUS HGB CONC 32.8 g/dL (32.0-36.0); MEAN CORPUSCULAR HEMOGLOB 30.1 pg (26.0-34.0); MEAN CORPUSCULAR VOLUME 91.9 fL (80-100); MEAN PLATELET VOLUME 9.5 fL (9.2-13.0); MONOCYTES ABSOLUTE 0.58 10/3/uL (0.21-1.20); NEUTROPHILS 83.5 %; PLATELET COUNT 153 10/3/uL (150-400); RBC DISTRIBUTION WIDTH 17.8 % (12.0-16.0); RED CELL COUNT 2.72 10/6/uL (4.7-6.1); WHITE BLOOD CELLS 11.5 10/3/uL (4.5-10.5)
[2016-12-22 19:00] LABS: BUN (BLOOD UREA NITROGEN) 15 MG/DL (6-23); CALCIUM, SERUM 7.5 MG/DL (8.5-10.4); CHLORIDE, SERUM 107 MMOL/L (96-112); CO2 (CARBON DIOXIDE) 23 MMOL/L (24-34); CREATININE 1.15 MG/DL (0.70-1.30); GFR AFRICAN AMERICAN 71 ML/MIN (>=60); GFR NON AFRICAN AMERICAN 61 ML/MIN (>=60); GLUCOSE, SERUM 133 MG/DL (60-99); POTASSIUM, SERUM 4.6 MMOL/L (3.5-5.3); SODIUM, SERUM 141 MMOL/L (135-148)
[2016-12-22 19:05] LABS: MANUAL DIFF NO %
[2016-12-22 22:14] LABS: BASOPHILS 0.5 %; BASOPHILS ABSOLUTE 0.05 10/3/uL (0.0-0.16); EOSINOPHILS ABSOLUTE 0.21 10/3/uL (0.0-0.53); HEMATOCRIT 23.5 % (40.0-51.0); HEMOGLOBIN 7.4 g/dL (13.6-17.8); IMMATURE GRANULOCYTES 1.4 %; IMMATURE GRANULOCYTES ABSOLUTE 0.15 10/3/uL (0.0-0.11); LYMPHOCYTES 5.8 %; LYMPHOCYTES ABSOLUTE 0.61 10/3/uL (0.67-4.30); MEAN CORPUS HGB CONC 31.5 g/dL (32.0-36.0); MEAN CORPUSCULAR HEMOGLOB 28.9 pg (26.0-34.0); MEAN CORPUSCULAR VOLUME 91.8 fL (80-100); MEAN PLATELET VOLUME 9.8 fL (9.2-13.0); MONOCYTES 5.1 %; MONOCYTES ABSOLUTE 0.54 10/3/uL (0.21-1.20); NEUTROPHILS 85.2 %; NEUTROPHILS ABSOLUTE 8.97 10/3/uL (2.02-8.40); PLATELET COUNT 146 10/3/uL (150-400); RBC DISTRIBUTION WIDTH 17.7 % (12.0-16.0); RED CELL COUNT 2.56 10/6/uL (4.7-6.1); WHITE BLOOD CELLS 10.5 10/3/uL (4.5-10.5)
[2016-12-22 22:16] LABS: MANUAL DIFF NO %
[2016-12-22 22:29] LABS: BUN (BLOOD UREA NITROGEN) 14 MG/DL (6-23); CALCIUM, SERUM 7.6 MG/DL (8.5-10.4); CHLORIDE, SERUM 108 MMOL/L (96-112); CO2 (CARBON DIOXIDE) 22 MMOL/L (24-34); CREATININE 1.02 MG/DL (0.70-1.30); GFR AFRICAN AMERICAN 82 ML/MIN (>=60); GFR NON AFRICAN AMERICAN 71 ML/MIN (>=60); GLUCOSE, SERUM 110 MG/DL (60-99); POTASSIUM, SERUM 4.1 MMOL/L (3.5-5.3); SODIUM, SERUM 142 MMOL/L (135-148)
[2016-12-23 03:46] LABS: ALLENS TEST Pos; CARBOXYHEMOGLOBIN 1.1 % (0-3); HCO3 (ACTUAL BICARBONATE) 22.7 MEQ/L (23-27); HEMOBLOGIN CONTENT 8.5 G/DL (14-18); INSTRUMENT SERIAL # 11843; METHEMOGLOBIN 0.7 % (0-3); MODE CMV; O2 CONTENT 11.7 VOL% (18-24); OPERATOR ID 17370; PCO2 (CO2 TENSION) 38 MMHG (35-45); PO2 (O2 TENSION) 115 MMHG (79-93); SAMPLE Arterial; TIDAL VOLUME 500 ML; pH 7.39 (7.37-7.43)
[2016-12-23 04:46] LABS: BASOPHILS 0.4 %; BASOPHILS ABSOLUTE 0.04 10/3/uL (0.0-0.16); EOSINOPHILS 2.4 %; EOSINOPHILS ABSOLUTE 0.25 10/3/uL (0.0-0.53); HEMATOCRIT 23.7 % (40.0-51.0); HEMOGLOBIN 7.8 g/dL (13.6-17.8); IMMATURE GRANULOCYTES 1.3 %; IMMATURE GRANULOCYTES ABSOLUTE 0.14 10/3/uL (0.0-0.11); LYMPHOCYTES 7.8 %; LYMPHOCYTES ABSOLUTE 0.83 10/3/uL (0.67-4.30); MANUAL DIFF NO %; MEAN CORPUS HGB CONC 32.9 g/dL (32.0-36.0); MEAN CORPUSCULAR HEMOGLOB 30.5 pg (26.0-34.0); MEAN CORPUSCULAR VOLUME 92.6 fL (80-100); MEAN PLATELET VOLUME 10.1 fL (9.2-13.0); MONOCYTES 5.3 %; MONOCYTES ABSOLUTE 0.56 10/3/uL (0.21-1.20); NEUTROPHILS 82.8 %; NEUTROPHILS ABSOLUTE 8.77 10/3/uL (2.02-8.40); PLATELET COUNT 154 10/3/uL (150-400); RBC DISTRIBUTION WIDTH 17.9 % (12.0-16.0); RED CELL COUNT 2.56 10/6/uL (4.7-6.1); WHITE BLOOD CELLS 10.6 10/3/uL (4.5-10.5)
[2016-12-23 05:08] LABS: A/G RATIO 0.6 (0.7-1.9); ALBUMIN 2.5 G/DL (3.5-5.0); ALKALINE PHOSPHATASE 83 U/L (45-117); BUN (BLOOD UREA NITROGEN) 14 MG/DL (6-23); CALCIUM, SERUM 7.5 MG/DL (8.5-10.4); CHLORIDE, SERUM 107 MMOL/L (96-112); CO2 (CARBON DIOXIDE) 22 MMOL/L (24-34); CREATININE 0.97 MG/DL (0.70-1.30); GFR AFRICAN AMERICAN 88 ML/MIN (>=60); GFR NON AFRICAN AMERICAN 76 ML/MIN (>=60); GLOBULIN 3.9 G/DL (2.5-4.1); POTASSIUM, SERUM 4.1 MMOL/L (3.5-5.3); SGOT(AST) 35 U/L (5-40); SGPT(ALT) 8 U/L (5-65); SODIUM, SERUM 142 MMOL/L (135-148); TOTAL PROTEIN 6.4 G/DL (6.0-8.5)
[2016-12-23 05:10] LABS: GLUCOSE, SERUM 142 MG/DL (60-99); PHOSPHORUS, SERUM 2.6 MG/DL (2.5-4.5); TOTAL BILIRUBIN 2.1 MG/DL (0-1.2)
[2016-12-23 11:31] LABS: BASOPHILS 0.4 %; BASOPHILS ABSOLUTE 0.04 10/3/uL (0.0-0.16); EOSINOPHILS 2.9 %; EOSINOPHILS ABSOLUTE 0.33 10/3/uL (0.0-0.53); HEMATOCRIT 23.8 % (40.0-51.0); HEMOGLOBIN 7.8 g/dL (13.6-17.8); IMMATURE GRANULOCYTES 1.2 %; IMMATURE GRANULOCYTES ABSOLUTE 0.13 10/3/uL (0.0-0.11); LYMPHOCYTES 9.5 %; LYMPHOCYTES ABSOLUTE 1.07 10/3/uL (0.67-4.30); MEAN CORPUS HGB CONC 32.8 g/dL (32.0-36.0); MEAN CORPUSCULAR HEMOGLOB 30.1 pg (26.0-34.0); MEAN CORPUSCULAR VOLUME 91.9 fL (80-100); MEAN PLATELET VOLUME 9.3 fL (9.2-13.0); MONOCYTES 1.4 %; MONOCYTES ABSOLUTE 0.16 10/3/uL (0.21-1.20); NEUTROPHILS 84.6 %; PLATELET COUNT 136 10/3/uL (150-400); RBC DISTRIBUTION WIDTH 18.1 % (12.0-16.0); RED CELL COUNT 2.59 10/6/uL (4.7-6.1); WHITE BLOOD CELLS 11.2 10/3/uL (4.5-10.5)
[2016-12-23 11:32] LABS: MANUAL DIFF NO %
[2016-12-23 11:42] LABS: CALCIUM, SERUM 7.4 MG/DL (8.5-10.4); CHLORIDE, SERUM 107 MMOL/L (96-112); CO2 (CARBON DIOXIDE) 24 MMOL/L (24-34); CREATININE 0.89 MG/DL (0.70-1.30); GFR AFRICAN AMERICAN 96 ML/MIN (>=60); GFR NON AFRICAN AMERICAN 83 ML/MIN (>=60); GLUCOSE, SERUM 157 MG/DL (60-99); POTASSIUM, SERUM 3.4 MMOL/L (3.5-5.3); SODIUM, SERUM 139 MMOL/L (135-148)
[2016-12-23 11:44] LABS: BUN (BLOOD UREA NITROGEN) 18 MG/DL (6-23)
[2016-12-23 16:58] LABS: BASOPHILS 0.2 %; BASOPHILS ABSOLUTE 0.02 10/3/uL (0.0-0.16); EOSINOPHILS 2.5 %; EOSINOPHILS ABSOLUTE 0.26 10/3/uL (0.0-0.53); HEMATOCRIT 23.1 % (40.0-51.0); HEMOGLOBIN 7.7 g/dL (13.6-17.8); IMMATURE GRANULOCYTES 1.1 %; IMMATURE GRANULOCYTES ABSOLUTE 0.11 10/3/uL (0.0-0.11); LYMPHOCYTES 9.2 %; LYMPHOCYTES ABSOLUTE 0.96 10/3/uL (0.67-4.30); MEAN CORPUS HGB CONC 33.3 g/dL (32.0-36.0); MEAN CORPUSCULAR HEMOGLOB 30.6 pg (26.0-34.0); MEAN CORPUSCULAR VOLUME 91.7 fL (80-100); MEAN PLATELET VOLUME 9.8 fL (9.2-13.0); MONOCYTES 0.2 %; MONOCYTES ABSOLUTE 0.02 10/3/uL (0.21-1.20); NEUTROPHILS 86.8 %; NEUTROPHILS ABSOLUTE 9.06 10/3/uL (2.02-8.40); PLATELET COUNT 148 10/3/uL (150-400); RBC DISTRIBUTION WIDTH 18.2 % (12.0-16.0); RED CELL COUNT 2.52 10/6/uL (4.7-6.1); WHITE BLOOD CELLS 10.4 10/3/uL (4.5-10.5)
[2016-12-23 16:59] LABS: MANUAL DIFF NO %
[2016-12-23 17:09] LABS: BUN (BLOOD UREA NITROGEN) 15 MG/DL (6-23); CALCIUM, SERUM 7.2 MG/DL (8.5-10.4); CHLORIDE, SERUM 107 MMOL/L (96-112); CO2 (CARBON DIOXIDE) 23 MMOL/L (24-34); CREATININE 0.82 MG/DL (0.70-1.30); GFR AFRICAN AMERICAN 100 ML/MIN (>=60); GFR NON AFRICAN AMERICAN 86 ML/MIN (>=60); GLUCOSE, SERUM 135 MG/DL (60-99); PHOSPHORUS, SERUM 2.3 MG/DL (2.5-4.5); POTASSIUM, SERUM 3.5 MMOL/L (3.5-5.3); SODIUM, SERUM 142 MMOL/L (135-148)
[2016-12-23 22:33] LABS: BASOPHILS 0.3 %; BASOPHILS ABSOLUTE 0.03 10/3/uL (0.0-0.16); EOSINOPHILS 2.7 %; EOSINOPHILS ABSOLUTE 0.27 10/3/uL (0.0-0.53); HEMATOCRIT 23.9 % (40.0-51.0); HEMOGLOBIN 7.7 g/dL (13.6-17.8); IMMATURE GRANULOCYTES 1.5 %; IMMATURE GRANULOCYTES ABSOLUTE 0.15 10/3/uL (0.0-0.11); LYMPHOCYTES 3.5 %; LYMPHOCYTES ABSOLUTE 0.36 10/3/uL (0.67-4.30); MEAN CORPUS HGB CONC 32.2 g/dL (32.0-36.0); MEAN CORPUSCULAR HEMOGLOB 30.1 pg (26.0-34.0); MEAN CORPUSCULAR VOLUME 93.4 fL (80-100); MEAN PLATELET VOLUME 10.1 fL (9.2-13.0); MONOCYTES 6.6 %; MONOCYTES ABSOLUTE 0.67 10/3/uL (0.21-1.20); NEUTROPHILS 85.4 %; NEUTROPHILS ABSOLUTE 8.69 10/3/uL (2.02-8.40); PLATELET COUNT 144 10/3/uL (150-400); RBC DISTRIBUTION WIDTH 18.4 % (12.0-16.0); RED CELL COUNT 2.56 10/6/uL (4.7-6.1); WHITE BLOOD CELLS 10.2 10/3/uL (4.5-10.5)
[2016-12-23 22:38] LABS: MANUAL DIFF NO %
[2016-12-23 22:47] LABS: BUN (BLOOD UREA NITROGEN) 17 MG/DL (6-23); CALCIUM, SERUM 7.2 MG/DL (8.5-10.4); CHLORIDE, SERUM 107 MMOL/L (96-112); CO2 (CARBON DIOXIDE) 22 MMOL/L (24-34); CREATININE 0.84 MG/DL (0.70-1.30); GFR AFRICAN AMERICAN 99 ML/MIN (>=60); GFR NON AFRICAN AMERICAN 85 ML/MIN (>=60); GLUCOSE, SERUM 151 MG/DL (60-99); PHOSPHORUS, SERUM 3.1 MG/DL (2.5-4.5); POTASSIUM, SERUM 3.5 MMOL/L (3.5-5.3); SODIUM, SERUM 141 MMOL/L (135-148)
[2016-12-24 03:43] LABS: BASOPHILS 0.2 %; BASOPHILS ABSOLUTE 0.02 10/3/uL (0.0-0.16); EOSINOPHILS 3.3 %; EOSINOPHILS ABSOLUTE 0.29 10/3/uL (0.0-0.53); HEMATOCRIT 23.7 % (40.0-51.0); HEMOGLOBIN 7.6 g/dL (13.6-17.8); IMMATURE GRANULOCYTES 1.1 %; LYMPHOCYTES 5.4 %; LYMPHOCYTES ABSOLUTE 0.48 10/3/uL (0.67-4.30); MANUAL DIFF NO %; MEAN CORPUS HGB CONC 32.1 g/dL (32.0-36.0); MEAN CORPUSCULAR HEMOGLOB 29.9 pg (26.0-34.0); MEAN CORPUSCULAR VOLUME 93.3 fL (80-100); MEAN PLATELET VOLUME 9.8 fL (9.2-13.0); MONOCYTES 4.5 %; NEUTROPHILS 85.5 %; NEUTROPHILS ABSOLUTE 7.62 10/3/uL (2.02-8.40); PLATELET COUNT 142 10/3/uL (150-400); RBC DISTRIBUTION WIDTH 18.4 % (12.0-16.0); RED CELL COUNT 2.54 10/6/uL (4.7-6.1); WHITE BLOOD CELLS 8.9 10/3/uL (4.5-10.5)
[2016-12-24 03:47] LABS: INTERNATIONAL NORMAL RATI 1.4 UNITS (-); PROTIME (NOT ORD) 17.3 SEC (12.0-14.5)
[2016-12-24 04:09] LABS: ALBUMIN 2.6 G/DL (3.5-5.0); BUN (BLOOD UREA NITROGEN) 16 MG/DL (6-23); CALCIUM, SERUM 7.3 MG/DL (8.5-10.4); CHLORIDE, SERUM 109 MMOL/L (96-112); CO2 (CARBON DIOXIDE) 22 MMOL/L (24-34); CREATININE 0.74 MG/DL (0.70-1.30); GFR AFRICAN AMERICAN 104 ML/MIN (>=60); GFR NON AFRICAN AMERICAN 90 ML/MIN (>=60); PHOSPHORUS, SERUM 2.4 MG/DL (2.5-4.5); POTASSIUM, SERUM 3.4 MMOL/L (3.5-5.3); SODIUM, SERUM 143 MMOL/L (135-148)
[2016-12-24 04:10] LABS: GLUCOSE, SERUM 98 MG/DL (60-99)
[2016-12-24 12:08] LABS: BASOPHILS 0.2 %; BASOPHILS ABSOLUTE 0.02 10/3/uL (0.0-0.16); EOSINOPHILS 2.5 %; EOSINOPHILS ABSOLUTE 0.24 10/3/uL (0.0-0.53); HEMATOCRIT 23.8 % (40.0-51.0); HEMOGLOBIN 7.8 g/dL (13.6-17.8); IMMATURE GRANULOCYTES 1.1 %; IMMATURE GRANULOCYTES ABSOLUTE 0.11 10/3/uL (0.0-0.11); LYMPHOCYTES 3.4 %; LYMPHOCYTES ABSOLUTE 0.33 10/3/uL (0.67-4.30); MEAN CORPUS HGB CONC 32.8 g/dL (32.0-36.0); MEAN CORPUSCULAR HEMOGLOB 30.6 pg (26.0-34.0); MEAN CORPUSCULAR VOLUME 93.3 fL (80-100); MEAN PLATELET VOLUME 10.4 fL (9.2-13.0); MONOCYTES 6.6 %; MONOCYTES ABSOLUTE 0.64 10/3/uL (0.21-1.20); NEUTROPHILS 86.2 %; NEUTROPHILS ABSOLUTE 8.35 10/3/uL (2.02-8.40); PLATELET COUNT 141 10/3/uL (150-400); RBC DISTRIBUTION WIDTH 18.5 % (12.0-16.0); RED CELL COUNT 2.55 10/6/uL (4.7-6.1); WHITE BLOOD CELLS 9.7 10/3/uL (4.5-10.5)
[2016-12-24 12:10] LABS: MANUAL DIFF NO %
[2016-12-24 12:19] LABS: BUN (BLOOD UREA NITROGEN) 15 MG/DL (6-23); CALCIUM, SERUM 7.9 MG/DL (8.5-10.4); CHLORIDE, SERUM 107 MMOL/L (96-112); CO2 (CARBON DIOXIDE) 21 MMOL/L (24-34); CREATININE 0.84 MG/DL (0.70-1.30); GFR AFRICAN AMERICAN 99 ML/MIN (>=60); GFR NON AFRICAN AMERICAN 85 ML/MIN (>=60); POTASSIUM, SERUM 3.5 MMOL/L (3.5-5.3); SODIUM, SERUM 141 MMOL/L (135-148)
[2016-12-24 12:20] LABS: GLUCOSE, SERUM 150 MG/DL (60-99); PHOSPHORUS, SERUM 3.2 MG/DL (2.5-4.5)
[2016-12-24 16:15] LABS: BUN (BLOOD UREA NITROGEN) 12 MG/DL (6-23); CALCIUM, SERUM 7.3 MG/DL (8.5-10.4); CHLORIDE, SERUM 107 MMOL/L (96-112); CO2 (CARBON DIOXIDE) 22 MMOL/L (24-34); CREATININE 0.78 MG/DL (0.70-1.30); GFR AFRICAN AMERICAN 102 ML/MIN (>=60); GFR NON AFRICAN AMERICAN 88 ML/MIN (>=60); PHOSPHORUS, SERUM 2.4 MG/DL (2.5-4.5); POTASSIUM, SERUM 4.1 MMOL/L (3.5-5.3); SODIUM, SERUM 140 MMOL/L (135-148)
[2016-12-24 16:16] LABS: GLUCOSE, SERUM 114 MG/DL (60-99)
[2016-12-24 16:30] LABS: BASOPHILS 0.4 %; BASOPHILS ABSOLUTE 0.04 10/3/uL (0.0-0.16); EOSINOPHILS 1.8 %; EOSINOPHILS ABSOLUTE 0.18 10/3/uL (0.0-0.53); HEMATOCRIT 22.8 % (40.0-51.0); HEMOGLOBIN 7.4 g/dL (13.6-17.8); IMMATURE GRANULOCYTES 1.4 %; IMMATURE GRANULOCYTES ABSOLUTE 0.14 10/3/uL (0.0-0.11); LYMPHOCYTES 3.8 %; LYMPHOCYTES ABSOLUTE 0.37 10/3/uL (0.67-4.30); MANUAL DIFF NO %; MEAN CORPUS HGB CONC 32.5 g/dL (32.0-36.0); MEAN CORPUSCULAR VOLUME 92.3 fL (80-100); MONOCYTES 7.5 %; MONOCYTES ABSOLUTE 0.73 10/3/uL (0.21-1.20); NEUTROPHILS 85.1 %; NEUTROPHILS ABSOLUTE 8.33 10/3/uL (2.02-8.40); PLATELET COUNT 138 10/3/uL (150-400); RBC DISTRIBUTION WIDTH 18.8 % (12.0-16.0); RED CELL COUNT 2.47 10/6/uL (4.7-6.1); WHITE BLOOD CELLS 9.8 10/3/uL (4.5-10.5)
[2016-12-24 21:49] LABS: BASOPHILS 0.2 %; BASOPHILS ABSOLUTE 0.02 10/3/uL (0.0-0.16); EOSINOPHILS 1.5 %; EOSINOPHILS ABSOLUTE 0.14 10/3/uL (0.0-0.53); HEMATOCRIT 23.4 % (40.0-51.0); HEMOGLOBIN 7.6 g/dL (13.6-17.8); IMMATURE GRANULOCYTES 0.8 %; IMMATURE GRANULOCYTES ABSOLUTE 0.08 10/3/uL (0.0-0.11); LYMPHOCYTES 2.6 %; LYMPHOCYTES ABSOLUTE 0.25 10/3/uL (0.67-4.30); MEAN CORPUS HGB CONC 32.5 g/dL (32.0-36.0); MEAN CORPUSCULAR HEMOGLOB 30.4 pg (26.0-34.0); MEAN CORPUSCULAR VOLUME 93.6 fL (80-100); MEAN PLATELET VOLUME 9.9 fL (9.2-13.0); MONOCYTES 5.9 %; MONOCYTES ABSOLUTE 0.56 10/3/uL (0.21-1.20); NEUTROPHILS ABSOLUTE 8.44 10/3/uL (2.02-8.40); PLATELET COUNT 141 10/3/uL (150-400); RBC DISTRIBUTION WIDTH 19.1 % (12.0-16.0); WHITE BLOOD CELLS 9.5 10/3/uL (4.5-10.5)
[2016-12-24 21:50] LABS: MANUAL DIFF NO %
[2016-12-24 22:13] LABS: BUN (BLOOD UREA NITROGEN) 12 MG/DL (6-23); CALCIUM, SERUM 7.8 MG/DL (8.5-10.4); CHLORIDE, SERUM 106 MMOL/L (96-112); CO2 (CARBON DIOXIDE) 23 MMOL/L (24-34); CREATININE 0.79 MG/DL (0.70-1.30); GFR AFRICAN AMERICAN 101 ML/MIN (>=60); GFR NON AFRICAN AMERICAN 87 ML/MIN (>=60); POTASSIUM, SERUM 3.9 MMOL/L (3.5-5.3); SODIUM, SERUM 141 MMOL/L (135-148)
[2016-12-24 22:15] LABS: GLUCOSE, SERUM 137 MG/DL (60-99); PHOSPHORUS, SERUM 3.3 MG/DL (2.5-4.5)
[2016-12-25 04:01] LABS: BASOPHILS 0.2 %; BASOPHILS ABSOLUTE 0.02 10/3/uL (0.0-0.16); HEMATOCRIT 24.5 % (40.0-51.0); HEMOGLOBIN 7.8 g/dL (13.6-17.8); LYMPHOCYTES 3.9 %; MEAN CORPUS HGB CONC 31.8 g/dL (32.0-36.0); MEAN CORPUSCULAR HEMOGLOB 30.1 pg (26.0-34.0); MEAN CORPUSCULAR VOLUME 94.6 fL (80-100); MEAN PLATELET VOLUME 10.1 fL (9.2-13.0); MONOCYTES 7.4 %; MONOCYTES ABSOLUTE 0.75 10/3/uL (0.21-1.20); NEUTROPHILS 85.5 %; PLATELET COUNT 142 10/3/uL (150-400); RBC DISTRIBUTION WIDTH 19.3 % (12.0-16.0); RED CELL COUNT 2.59 10/6/uL (4.7-6.1); WHITE BLOOD CELLS 10.2 10/3/uL (4.5-10.5)
[2016-12-25 04:04] LABS: ALLENS TEST Pos; BE (BASE EXCESS) -6.7 MEQ/L (0 +/- 2.5); CARBOXYHEMOGLOBIN 0.6 % (0-3); HCO3 (ACTUAL BICARBONATE) 18.1 MEQ/L (23-27); HEMOBLOGIN CONTENT 8.4 G/DL (14-18); INSTRUMENT SERIAL # 11843; METHEMOGLOBIN 0.6 % (0-3); MODE CMV; O2 CONTENT 11.5 VOL% (18-24); OPERATOR ID 13744; PCO2 (CO2 TENSION) 33 MMHG (35-45); PO2 (O2 TENSION) 102 MMHG (79-93); SAMPLE Arterial; TIDAL VOLUME 500 ML; pH 7.36 (7.37-7.43)
[2016-12-25 04:12] LABS: ALBUMIN 2.6 G/DL (3.5-5.0); BUN (BLOOD UREA NITROGEN) 11 MG/DL (6-23); CALCIUM, SERUM 7.8 MG/DL (8.5-10.4); CHLORIDE, SERUM 107 MMOL/L (96-112); CO2 (CARBON DIOXIDE) 23 MMOL/L (24-34); CREATININE 0.83 MG/DL (0.70-1.30); GFR AFRICAN AMERICAN 99 ML/MIN (>=60); GFR NON AFRICAN AMERICAN 85 ML/MIN (>=60); GLUCOSE, SERUM 102 MG/DL (60-99); MANUAL DIFF NO %; PHOSPHORUS, SERUM 2.6 MG/DL (2.5-4.5); POTASSIUM, SERUM 4.1 MMOL/L (3.5-5.3); SODIUM, SERUM 141 MMOL/L (135-148)
[2016-12-25 04:25] LABS: INTERNATIONAL NORMAL RATI 1.5 UNITS (-); PROTIME (NOT ORD) 18.2 SEC (12.0-14.5)
[2016-12-25 10:32] LABS: BASOPHILS 0.1 %; BASOPHILS ABSOLUTE 0.01 10/3/uL (0.0-0.16); EOSINOPHILS 1.3 %; EOSINOPHILS ABSOLUTE 0.11 10/3/uL (0.0-0.53); HEMOGLOBIN 7.4 g/dL (13.6-17.8); IMMATURE GRANULOCYTES ABSOLUTE 0.09 10/3/uL (0.0-0.11); LYMPHOCYTES 3.3 %; LYMPHOCYTES ABSOLUTE 0.28 10/3/uL (0.67-4.30); MEAN CORPUS HGB CONC 32.2 g/dL (32.0-36.0); MEAN CORPUSCULAR HEMOGLOB 30.2 pg (26.0-34.0); MEAN CORPUSCULAR VOLUME 93.9 fL (80-100); MEAN PLATELET VOLUME 9.3 fL (9.2-13.0); MONOCYTES 7.3 %; MONOCYTES ABSOLUTE 0.63 10/3/uL (0.21-1.20); NEUTROPHILS ABSOLUTE 7.49 10/3/uL (2.02-8.40); PLATELET COUNT 127 10/3/uL (150-400); RBC DISTRIBUTION WIDTH 19.3 % (12.0-16.0); RED CELL COUNT 2.45 10/6/uL (4.7-6.1); WHITE BLOOD CELLS 8.6 10/3/uL (4.5-10.5)
[2016-12-25 10:33] LABS: MANUAL DIFF NO %
[2016-12-25 10:46] LABS: BUN (BLOOD UREA NITROGEN) 15 MG/DL (6-23); CALCIUM, SERUM 7.9 MG/DL (8.5-10.4); CHLORIDE, SERUM 105 MMOL/L (96-112); CO2 (CARBON DIOXIDE) 22 MMOL/L (24-34); CREATININE 0.91 MG/DL (0.70-1.30); GFR AFRICAN AMERICAN 95 ML/MIN (>=60); GFR NON AFRICAN AMERICAN 82 ML/MIN (>=60); GLUCOSE, SERUM 131 MG/DL (60-99); PHOSPHORUS, SERUM 2.5 MG/DL (2.5-4.5); POTASSIUM, SERUM 3.7 MMOL/L (3.5-5.3); SODIUM, SERUM 138 MMOL/L (135-148)
[2016-12-26 04:06] LABS: BASOPHILS 0.3 %; BASOPHILS ABSOLUTE 0.02 10/3/uL (0.0-0.16); EOSINOPHILS ABSOLUTE 0.12 10/3/uL (0.0-0.53); HEMATOCRIT 21.2 % (40.0-51.0); IMMATURE GRANULOCYTES 1.3 %; IMMATURE GRANULOCYTES ABSOLUTE 0.08 10/3/uL (0.0-0.11); LYMPHOCYTES 8.9 %; LYMPHOCYTES ABSOLUTE 0.53 10/3/uL (0.67-4.30); MEAN CORPUS HGB CONC 32.1 g/dL (32.0-36.0); MEAN CORPUSCULAR HEMOGLOB 30.6 pg (26.0-34.0); MEAN CORPUSCULAR VOLUME 95.5 fL (80-100); MEAN PLATELET VOLUME 10.1 fL (9.2-13.0); MONOCYTES 7.4 %; MONOCYTES ABSOLUTE 0.44 10/3/uL (0.21-1.20); NEUTROPHILS 80.1 %; NEUTROPHILS ABSOLUTE 4.76 10/3/uL (2.02-8.40); PLATELET COUNT 132 10/3/uL (150-400); RBC DISTRIBUTION WIDTH 19.9 % (12.0-16.0); RED CELL COUNT 2.22 10/6/uL (4.7-6.1)
[2016-12-26 04:07] LABS: HEMOGLOBIN 6.8 g/dL (13.6-17.8)
[2016-12-26 04:08] LABS: MANUAL DIFF NO %
[2016-12-26 04:14] LABS: ALBUMIN 2.4 G/DL (3.5-5.0); CALCIUM, SERUM 7.8 MG/DL (8.5-10.4); CHLORIDE, SERUM 106 MMOL/L (96-112); CO2 (CARBON DIOXIDE) 22 MMOL/L (24-34); GLUCOSE, SERUM 118 MG/DL (60-99); POTASSIUM, SERUM 4.1 MMOL/L (3.5-5.3); SODIUM, SERUM 140 MMOL/L (135-148)
[2016-12-26 04:18] LABS: BUN (BLOOD UREA NITROGEN) 35 MG/DL (6-23); CREATININE 1.85 MG/DL (0.70-1.30); GFR AFRICAN AMERICAN 40 ML/MIN (>=60); GFR NON AFRICAN AMERICAN 35 ML/MIN (>=60); PHOSPHORUS, SERUM 5.3 MG/DL (2.5-4.5)
[2016-12-26 04:38] LABS: PROTIME (NOT ORD) 22.1 SEC (12.0-14.5)
[2016-12-26 05:54] LABS: PROCALCITONIN 0.65 ng/mL (<0.5)
[2016-12-26 14:58] LABS: BASOPHILS 0.2 %; BASOPHILS ABSOLUTE 0.01 10/3/uL (0.0-0.16); EOSINOPHILS ABSOLUTE 0.11 10/3/uL (0.0-0.53); IMMATURE GRANULOCYTES 0.9 %; IMMATURE GRANULOCYTES ABSOLUTE 0.05 10/3/uL (0.0-0.11); LYMPHOCYTES ABSOLUTE 0.39 10/3/uL (0.67-4.30); MEAN CORPUS HGB CONC 33.3 g/dL (32.0-36.0); MEAN CORPUSCULAR HEMOGLOB 30.7 pg (26.0-34.0); MEAN PLATELET VOLUME 10.3 fL (9.2-13.0); MONOCYTES 10.9 %; MONOCYTES ABSOLUTE 0.61 10/3/uL (0.21-1.20); NEUTROPHILS ABSOLUTE 4.44 10/3/uL (2.02-8.40); PLATELET COUNT 128 10/3/uL (150-400); RED CELL COUNT 2.25 10/6/uL (4.7-6.1); WHITE BLOOD CELLS 5.6 10/3/uL (4.5-10.5)
[2016-12-26 15:00] LABS: HEMATOCRIT 20.7 % (40.0-51.0); HEMOGLOBIN 6.9 g/dL (13.6-17.8)
[2016-12-26 15:01] LABS: MANUAL DIFF NO %
[2016-12-26 15:05] LABS: INTERNATIONAL NORMAL RATI 1.7 UNITS (-); PROTIME (NOT ORD) 19.9 SEC (12.0-14.5)
[2016-12-26 15:06] LABS: PARTIAL THROMBO TIME 39.7 SEC (22.5-37.2)
[2016-12-26 19:42] LABS: HEMATOCRIT 24.6 % (40.0-51.0); HEMOGLOBIN 8.4 g/dL (13.6-17.8)
[2016-12-27 03:34] LABS: BASOPHILS 0.3 %; BASOPHILS ABSOLUTE 0.02 10/3/uL (0.0-0.16); EOSINOPHILS 1.6 %; EOSINOPHILS ABSOLUTE 0.09 10/3/uL (0.0-0.53); HEMATOCRIT 25.5 % (40.0-51.0); HEMOGLOBIN 8.7 g/dL (13.6-17.8); IMMATURE GRANULOCYTES 0.9 %; IMMATURE GRANULOCYTES ABSOLUTE 0.05 10/3/uL (0.0-0.11); LYMPHOCYTES 7.8 %; LYMPHOCYTES ABSOLUTE 0.45 10/3/uL (0.67-4.30); MEAN CORPUS HGB CONC 34.1 g/dL (32.0-36.0); MEAN CORPUSCULAR HEMOGLOB 31.3 pg (26.0-34.0); MEAN CORPUSCULAR VOLUME 91.7 fL (80-100); MONOCYTES ABSOLUTE 0.75 10/3/uL (0.21-1.20); NEUTROPHILS 76.4 %; NEUTROPHILS ABSOLUTE 4.39 10/3/uL (2.02-8.40); PLATELET COUNT 132 10/3/uL (150-400); RBC DISTRIBUTION WIDTH 18.5 % (12.0-16.0); WHITE BLOOD CELLS 5.8 10/3/uL (4.5-10.5)
[2016-12-27 03:35] LABS: MANUAL DIFF NO %; RED CELL COUNT 2.78 10/6/uL (4.7-6.1)
[2016-12-27 03:46] LABS: INTERNATIONAL NORMAL RATI 1.8 UNITS (-); PROTIME (NOT ORD) 20.6 SEC (12.0-14.5)
[2016-12-27 03:55] LABS: ALBUMIN 2.7 G/DL (3.5-5.0); CALCIUM, SERUM 8.2 MG/DL (8.5-10.4); CHLORIDE, SERUM 102 MMOL/L (96-112); CO2 (CARBON DIOXIDE) 26 MMOL/L (24-34); CREATININE 1.88 MG/DL (0.70-1.30); GFR AFRICAN AMERICAN 39 ML/MIN (>=60); GFR NON AFRICAN AMERICAN 34 ML/MIN (>=60); GLUCOSE, SERUM 141 MG/DL (60-99); PHOSPHORUS, SERUM 4.5 MG/DL (2.5-4.5); SODIUM, SERUM 138 MMOL/L (135-148)
[2016-12-27 03:56] LABS: BUN (BLOOD UREA NITROGEN) 27 MG/DL (6-23)
[2016-12-28 00:45] LABS: BASOPHILS 0.5 %; BASOPHILS ABSOLUTE 0.03 10/3/uL (0.0-0.16); EOSINOPHILS 3.3 %; EOSINOPHILS ABSOLUTE 0.18 10/3/uL (0.0-0.53); HEMATOCRIT 25.4 % (40.0-51.0); HEMOGLOBIN 8.5 g/dL (13.6-17.8); IMMATURE GRANULOCYTES 0.5 %; IMMATURE GRANULOCYTES ABSOLUTE 0.03 10/3/uL (0.0-0.11); LYMPHOCYTES 15.2 %; LYMPHOCYTES ABSOLUTE 0.83 10/3/uL (0.67-4.30); MEAN CORPUS HGB CONC 33.5 g/dL (32.0-36.0); MEAN CORPUSCULAR VOLUME 92.7 fL (80-100); MEAN PLATELET VOLUME 9.9 fL (9.2-13.0); MONOCYTES 6.4 %; MONOCYTES ABSOLUTE 0.35 10/3/uL (0.21-1.20); NEUTROPHILS 74.1 %; NEUTROPHILS ABSOLUTE 4.04 10/3/uL (2.02-8.40); PLATELET COUNT 131 10/3/uL (150-400); RBC DISTRIBUTION WIDTH 18.5 % (12.0-16.0); RED CELL COUNT 2.74 10/6/uL (4.7-6.1); WHITE BLOOD CELLS 5.5 10/3/uL (4.5-10.5)
[2016-12-28 00:47] LABS: MANUAL DIFF NO %
[2016-12-28 00:55] LABS: INTERNATIONAL NORMAL RATI 1.9 UNITS (-); PROTIME (NOT ORD) 21.6 SEC (12.0-14.5)
[2016-12-28 01:00] LABS: ALBUMIN 2.6 G/DL (3.5-5.0); CALCIUM, SERUM 8.2 MG/DL (8.5-10.4); CHLORIDE, SERUM 102 MMOL/L (96-112); CO2 (CARBON DIOXIDE) 26 MMOL/L (24-34); GFR AFRICAN AMERICAN 28 ML/MIN (>=60); GFR NON AFRICAN AMERICAN 24 ML/MIN (>=60); GLUCOSE, SERUM 131 MG/DL (60-99); PHOSPHORUS, SERUM 5.4 MG/DL (2.5-4.5); POTASSIUM, SERUM 3.9 MMOL/L (3.5-5.3); SODIUM, SERUM 140 MMOL/L (135-148)
[2016-12-28 01:02] LABS: BUN (BLOOD UREA NITROGEN) 58 MG/DL (6-23); CREATININE 2.49 MG/DL (0.70-1.30)
[2016-12-29 03:49] LABS: BASOPHILS 0.2 %; BASOPHILS ABSOLUTE 0.01 10/3/uL (0.0-0.16); EOSINOPHILS 2.4 %; EOSINOPHILS ABSOLUTE 0.14 10/3/uL (0.0-0.53); HEMATOCRIT 25.3 % (40.0-51.0); HEMOGLOBIN 8.5 g/dL (13.6-17.8); IMMATURE GRANULOCYTES 0.9 %; IMMATURE GRANULOCYTES ABSOLUTE 0.05 10/3/uL (0.0-0.11); LYMPHOCYTES 10.5 %; LYMPHOCYTES ABSOLUTE 0.61 10/3/uL (0.67-4.30); MEAN CORPUS HGB CONC 33.6 g/dL (32.0-36.0); MEAN CORPUSCULAR HEMOGLOB 31.5 pg (26.0-34.0); MEAN CORPUSCULAR VOLUME 93.7 fL (80-100); MEAN PLATELET VOLUME 9.8 fL (9.2-13.0); MONOCYTES 10.5 %; MONOCYTES ABSOLUTE 0.61 10/3/uL (0.21-1.20); NEUTROPHILS 75.5 %; NEUTROPHILS ABSOLUTE 4.38 10/3/uL (2.02-8.40); PLATELET COUNT 133 10/3/uL (150-400); RBC DISTRIBUTION WIDTH 18.4 % (12.0-16.0); WHITE BLOOD CELLS 5.8 10/3/uL (4.5-10.5)
[2016-12-29 03:55] LABS: ALBUMIN 2.6 G/DL (3.5-5.0); BUN (BLOOD UREA NITROGEN) 76 MG/DL (6-23); CALCIUM, SERUM 8.6 MG/DL (8.5-10.4); CHLORIDE, SERUM 106 MMOL/L (96-112); CO2 (CARBON DIOXIDE) 26 MMOL/L (24-34); CREATININE 2.52 MG/DL (0.70-1.30); GFR AFRICAN AMERICAN 28 ML/MIN (>=60); GFR NON AFRICAN AMERICAN 24 ML/MIN (>=60); GLUCOSE, SERUM 107 MG/DL (60-99); PHOSPHORUS, SERUM 5.1 MG/DL (2.5-4.5); POTASSIUM, SERUM 3.6 MMOL/L (3.5-5.3); SODIUM, SERUM 143 MMOL/L (135-148)
[2016-12-29 03:56] LABS: MANUAL DIFF NO %
[2016-12-29 03:57] LABS: INTERNATIONAL NORMAL RATI 2.1 UNITS (-); PROTIME (NOT ORD) 23.4 SEC (12.0-14.5)
[2016-12-29 11:35] LABS: HEPATITIS B SURFACE ANTIGEN NON-REACTIVE (NON-REACT)
[2016-12-29 12:01] LABS: HEPATITIS B CORE AB IGM NON-REACTIVE (NON-REAC); HEPATITIS C ANTIBODY NON-REACTIVE (NON-REACT)
[2016-12-29 12:02] LABS: HIV COMBO NON-REACTIVE (NON REAC)
[2016-12-29 12:03] LABS: HEP A ANTIBODY IGM NON-REACTIVE (NON-REACT)
[2016-12-30 03:23] LABS: BASOPHILS 0.6 %; BASOPHILS ABSOLUTE 0.03 10/3/uL (0.0-0.16); EOSINOPHILS ABSOLUTE 0.11 10/3/uL (0.0-0.53); HEMATOCRIT 24.7 % (40.0-51.0); HEMOGLOBIN 8.1 g/dL (13.6-17.8); IMMATURE GRANULOCYTES 0.4 %; IMMATURE GRANULOCYTES ABSOLUTE 0.02 10/3/uL (0.0-0.11); LYMPHOCYTES 9.7 %; LYMPHOCYTES ABSOLUTE 0.52 10/3/uL (0.67-4.30); MANUAL DIFF NO %; MEAN CORPUS HGB CONC 32.8 g/dL (32.0-36.0); MEAN CORPUSCULAR HEMOGLOB 31.2 pg (26.0-34.0); MEAN PLATELET VOLUME 9.7 fL (9.2-13.0); MONOCYTES ABSOLUTE 0.86 10/3/uL (0.21-1.20); NEUTROPHILS 71.3 %; NEUTROPHILS ABSOLUTE 3.84 10/3/uL (2.02-8.40); PLATELET COUNT 128 10/3/uL (150-400); RBC DISTRIBUTION WIDTH 18.4 % (12.0-16.0); WHITE BLOOD CELLS 5.4 10/3/uL (4.5-10.5)
[2016-12-30 03:29] LABS: INTERNATIONAL NORMAL RATI 2.3 UNITS (-); PROTIME (NOT ORD) 25.2 SEC (12.0-14.5)
[2016-12-30 03:36] LABS: ALBUMIN 2.5 G/DL (3.5-5.0); BUN (BLOOD UREA NITROGEN) 93 MG/DL (6-23); CALCIUM, SERUM 8.5 MG/DL (8.5-10.4); CHLORIDE, SERUM 109 MMOL/L (96-112); CO2 (CARBON DIOXIDE) 24 MMOL/L (24-34); CREATININE 2.36 MG/DL (0.70-1.30); GFR AFRICAN AMERICAN 30 ML/MIN (>=60); GFR NON AFRICAN AMERICAN 26 ML/MIN (>=60); GLUCOSE, SERUM 121 MG/DL (60-99); PHOSPHORUS, SERUM 3.9 MG/DL (2.5-4.5); POTASSIUM, SERUM 3.3 MMOL/L (3.5-5.3); SODIUM, SERUM 146 MMOL/L (135-148)
[2016-12-31 04:16] LABS: BASOPHILS 0.5 %; BASOPHILS ABSOLUTE 0.03 10/3/uL (0.0-0.16); EOSINOPHILS 2.1 %; EOSINOPHILS ABSOLUTE 0.13 10/3/uL (0.0-0.53); HEMOGLOBIN 8.6 g/dL (13.6-17.8); IMMATURE GRANULOCYTES 0.5 %; IMMATURE GRANULOCYTES ABSOLUTE 0.03 10/3/uL (0.0-0.11); LYMPHOCYTES 11.7 %; LYMPHOCYTES ABSOLUTE 0.74 10/3/uL (0.67-4.30); MANUAL DIFF NO %; MEAN CORPUS HGB CONC 31.9 g/dL (32.0-36.0); MEAN CORPUSCULAR HEMOGLOB 30.8 pg (26.0-34.0); MEAN CORPUSCULAR VOLUME 96.8 fL (80-100); MEAN PLATELET VOLUME 10.3 fL (9.2-13.0); MONOCYTES 8.2 %; MONOCYTES ABSOLUTE 0.52 10/3/uL (0.21-1.20); NEUTROPHILS ABSOLUTE 4.86 10/3/uL (2.02-8.40); PLATELET COUNT 142 10/3/uL (150-400); RBC DISTRIBUTION WIDTH 18.7 % (12.0-16.0); RED CELL COUNT 2.79 10/6/uL (4.7-6.1); WHITE BLOOD CELLS 6.3 10/3/uL (4.5-10.5)
[2016-12-31 04:24] LABS: INTERNATIONAL NORMAL RATI 2.3 UNITS (-); PROTIME (NOT ORD) 25.2 SEC (12.0-14.5)
[2016-12-31 04:41] LABS: ALBUMIN 2.4 G/DL (3.5-5.0); CALCIUM, SERUM 8.9 MG/DL (8.5-10.4); CHLORIDE, SERUM 109 MMOL/L (96-112); CO2 (CARBON DIOXIDE) 26 MMOL/L (24-34); GLUCOSE, SERUM 143 MG/DL (60-99); POTASSIUM, SERUM 3.7 MMOL/L (3.5-5.3); SODIUM, SERUM 145 MMOL/L (135-148)
[2016-12-31 04:44] LABS: BUN (BLOOD UREA NITROGEN) 65 MG/DL (6-23); CREATININE 1.69 MG/DL (0.70-1.30); GFR AFRICAN AMERICAN 45 ML/MIN (>=60); GFR NON AFRICAN AMERICAN 39 ML/MIN (>=60); PHOSPHORUS, SERUM 2.3 MG/DL (2.5-4.5)
[2017-01-01 04:09] LABS: INTERNATIONAL NORMAL RATI 2.1 UNITS (-); PROTIME (NOT ORD) 23.5 SEC (12.0-14.5)
[2017-01-01 04:16] LABS: HEMATOCRIT 25.5 % (40.0-51.0); HEMOGLOBIN 8.1 g/dL (13.6-17.8); MEAN CORPUS HGB CONC 31.8 g/dL (32.0-36.0); MEAN CORPUSCULAR HEMOGLOB 31.3 pg (26.0-34.0); MEAN CORPUSCULAR VOLUME 98.5 fL (80-100); MEAN PLATELET VOLUME 11.1 fL (9.2-13.0); PLATELET COUNT 153 10/3/uL (150-400); RBC DISTRIBUTION WIDTH 18.7 % (12.0-16.0); RED CELL COUNT 2.59 10/6/uL (4.7-6.1); WHITE BLOOD CELLS 6.9 10/3/uL (4.5-10.5)
[2017-01-01 04:18] LABS: MANUAL DIFF YES %
[2017-01-01 04:27] LABS: ALBUMIN 2.4 G/DL (3.5-5.0); BUN (BLOOD UREA NITROGEN) 92 MG/DL (6-23); CALCIUM, SERUM 8.5 MG/DL (8.5-10.4); CHLORIDE, SERUM 108 MMOL/L (96-112); CO2 (CARBON DIOXIDE) 27 MMOL/L (24-34); GFR AFRICAN AMERICAN 36 ML/MIN (>=60); GFR NON AFRICAN AMERICAN 31 ML/MIN (>=60); GLUCOSE, SERUM 137 MG/DL (60-99); PHOSPHORUS, SERUM 2.9 MG/DL (2.5-4.5); POTASSIUM, SERUM 3.7 MMOL/L (3.5-5.3); SODIUM, SERUM 147 MMOL/L (135-148)
[2017-01-01 05:42] LABS: SEGMENTED NEUTROPHIL (0) 65 %; TOTAL NUCLEATED CELLS 100
[2017-01-01 05:43] LABS: ANISOCYTOSIS 1+ (5-10/OIF) (0-5/OIF); BAND NEUTROPHILS 7 %; EOSINOPHILS 2 %; EOSINOPHILS ABSOLUTE (CALC) 0.14 10/3/uL (0.0-0.53); LYMPHOCYTES 24 %; LYMPHOCYTES ABSOLUTE (CALC) 1.66 10/3/uL (0.67-4.30); MONOCYTES 2 %; MONOCYTES ABSOLUTE (CALC) 0.14 10/3/uL (0.21-1.20); NEUTROPHILS ABSOLUTE (CALC) 4.97 10/3/uL (2.02-8.40); PLATELET ESTIMATE ADQ (ADEQUATE)
[2017-01-02 04:32] LABS: BASOPHILS 0.5 %; BASOPHILS ABSOLUTE 0.03 10/3/uL (0.0-0.16); EOSINOPHILS 4.6 %; EOSINOPHILS ABSOLUTE 0.27 10/3/uL (0.0-0.53); HEMATOCRIT 23.8 % (40.0-51.0); HEMOGLOBIN 7.4 g/dL (13.6-17.8); IMMATURE GRANULOCYTES 0.5 %; IMMATURE GRANULOCYTES ABSOLUTE 0.03 10/3/uL (0.0-0.11); LYMPHOCYTES 12.3 %; LYMPHOCYTES ABSOLUTE 0.72 10/3/uL (0.67-4.30); MEAN CORPUS HGB CONC 31.1 g/dL (32.0-36.0); MEAN CORPUSCULAR HEMOGLOB 30.6 pg (26.0-34.0); MEAN CORPUSCULAR VOLUME 98.3 fL (80-100); MEAN PLATELET VOLUME 10.3 fL (9.2-13.0); MONOCYTES 9.6 %; MONOCYTES ABSOLUTE 0.56 10/3/uL (0.21-1.20); NEUTROPHILS 72.5 %; NEUTROPHILS ABSOLUTE 4.23 10/3/uL (2.02-8.40); PLATELET COUNT 136 10/3/uL (150-400); RBC DISTRIBUTION WIDTH 18.4 % (12.0-16.0); RED CELL COUNT 2.42 10/6/uL (4.7-6.1); WHITE BLOOD CELLS 5.8 10/3/uL (4.5-10.5)
[2017-01-02 04:36] LABS: INTERNATIONAL NORMAL RATI 2.4 UNITS (-); PROTIME (NOT ORD) 26.3 SEC (12.0-14.5)
[2017-01-02 04:44] LABS: MANUAL DIFF NO %
[2017-01-02 04:46] LABS: ALBUMIN 2.3 G/DL (3.5-5.0); TOTAL PROTEIN 6.7 G/DL (6.0-8.5)
[2017-01-02 04:48] LABS: DIRECT BILIRUBIN 0.6 MG/DL (0.0-0.4); INDIRECT BILIRUBIN(NOT ORDER) 0.4 MG/DL (0.1-0.9)
[2017-01-02 13:17] LABS: ALBUMIN 2.4 G/DL (3.5-5.0); CALCIUM, SERUM 8.7 MG/DL (8.5-10.4); CHLORIDE, SERUM 108 MMOL/L (96-112); CO2 (CARBON DIOXIDE) 27 MMOL/L (24-34); CREATININE 1.72 MG/DL (0.70-1.30); GFR AFRICAN AMERICAN 44 ML/MIN (>=60); GFR NON AFRICAN AMERICAN 38 ML/MIN (>=60); GLUCOSE, SERUM 134 MG/DL (60-99); PHOSPHORUS, SERUM 2.2 MG/DL (2.5-4.5); POTASSIUM, SERUM 3.4 MMOL/L (3.5-5.3); SODIUM, SERUM 146 MMOL/L (135-148)
[2017-01-02 13:18] LABS: BUN (BLOOD UREA NITROGEN) 98 MG/DL (6-23)
[2017-01-03 04:08] LABS: BASOPHILS 0.1 %; BASOPHILS ABSOLUTE 0.01 10/3/uL (0.0-0.16); EOSINOPHILS 0.3 %; EOSINOPHILS ABSOLUTE 0.03 10/3/uL (0.0-0.53); HEMATOCRIT 23.5 % (40.0-51.0); HEMOGLOBIN 7.3 g/dL (13.6-17.8); IMMATURE GRANULOCYTES 0.3 %; IMMATURE GRANULOCYTES ABSOLUTE 0.03 10/3/uL (0.0-0.11); LYMPHOCYTES 6.8 %; LYMPHOCYTES ABSOLUTE 0.71 10/3/uL (0.67-4.30); MANUAL DIFF NO %; MEAN CORPUS HGB CONC 31.1 g/dL (32.0-36.0); MEAN CORPUSCULAR HEMOGLOB 30.4 pg (26.0-34.0); MEAN CORPUSCULAR VOLUME 97.9 fL (80-100); MEAN PLATELET VOLUME 10.5 fL (9.2-13.0); MONOCYTES 4.4 %; MONOCYTES ABSOLUTE 0.46 10/3/uL (0.21-1.20); NEUTROPHILS 88.1 %; NEUTROPHILS ABSOLUTE 9.18 10/3/uL (2.02-8.40); PLATELET COUNT 145 10/3/uL (150-400); RBC DISTRIBUTION WIDTH 18.3 % (12.0-16.0); WHITE BLOOD CELLS 10.4 10/3/uL (4.5-10.5)
[2017-01-03 04:17] LABS: INTERNATIONAL NORMAL RATI 2.2 UNITS (-); PROTIME (NOT ORD) 24.2 SEC (12.0-14.5)
[2017-01-03 04:20] LABS: CALCIUM, SERUM 8.2 MG/DL (8.5-10.4); CHLORIDE, SERUM 103 MMOL/L (96-112); CO2 (CARBON DIOXIDE) 29 MMOL/L (24-34); CREATININE 1.61 MG/DL (0.70-1.30); GFR AFRICAN AMERICAN 47 ML/MIN (>=60); GFR NON AFRICAN AMERICAN 41 ML/MIN (>=60); SODIUM, SERUM 140 MMOL/L (135-148)
[2017-01-03 04:21] LABS: BUN (BLOOD UREA NITROGEN) 48 MG/DL (6-23); GLUCOSE, SERUM 101 MG/DL (60-99); POTASSIUM, SERUM 4.2 MMOL/L (3.5-5.3)
[2017-01-04 04:03] LABS: BASOPHILS 0.1 %; BASOPHILS ABSOLUTE 0.01 10/3/uL (0.0-0.16); EOSINOPHILS 1.6 %; EOSINOPHILS ABSOLUTE 0.12 10/3/uL (0.0-0.53); HEMATOCRIT 21.4 % (40.0-51.0); IMMATURE GRANULOCYTES 0.4 %; IMMATURE GRANULOCYTES ABSOLUTE 0.03 10/3/uL (0.0-0.11); LYMPHOCYTES 7.6 %; LYMPHOCYTES ABSOLUTE 0.59 10/3/uL (0.67-4.30); MEAN CORPUSCULAR HEMOGLOB 31.5 pg (26.0-34.0); MEAN CORPUSCULAR VOLUME 96.4 fL (80-100); MEAN PLATELET VOLUME 10.3 fL (9.2-13.0); MONOCYTES 5.8 %; MONOCYTES ABSOLUTE 0.45 10/3/uL (0.21-1.20); NEUTROPHILS 84.5 %; NEUTROPHILS ABSOLUTE 6.52 10/3/uL (2.02-8.40); PLATELET COUNT 145 10/3/uL (150-400); RBC DISTRIBUTION WIDTH 18.5 % (12.0-16.0); RED CELL COUNT 2.22 10/6/uL (4.7-6.1); WHITE BLOOD CELLS 7.7 10/3/uL (4.5-10.5)
[2017-01-04 04:04] LABS: MANUAL DIFF NO %; MEAN CORPUS HGB CONC 32.7 g/dL (32.0-36.0)
[2017-01-04 04:24] LABS: INTERNATIONAL NORMAL RATI 1.9 UNITS (-); PROTIME (NOT ORD) 21.5 SEC (12.0-14.5)
[2017-01-04 04:26] LABS: CALCIUM, SERUM 8.8 MG/DL (8.5-10.4); CHLORIDE, SERUM 103 MMOL/L (96-112); CO2 (CARBON DIOXIDE) 29 MMOL/L (24-34); CREATININE 2.02 MG/DL (0.70-1.30); GFR AFRICAN AMERICAN 36 ML/MIN (>=60); GFR NON AFRICAN AMERICAN 31 ML/MIN (>=60); GLUCOSE, SERUM 100 MG/DL (60-99); SODIUM, SERUM 141 MMOL/L (135-148)
[2017-01-04 04:31] LABS: BUN (BLOOD UREA NITROGEN) 65 MG/DL (6-23)
[2017-01-05 04:25] LABS: MEAN CORPUSCULAR HEMOGLOB 31.3 pg (26.0-34.0); MEAN PLATELET VOLUME 10.8 fL (9.2-13.0); PLATELET COUNT 166 10/3/uL (150-400); RBC DISTRIBUTION WIDTH 18.3 % (12.0-16.0); RED CELL COUNT 1.98 10/6/uL (4.7-6.1); WHITE BLOOD CELLS 7.5 10/3/uL (4.5-10.5)
[2017-01-05 04:29] LABS: HEMATOCRIT 19.4 % (40.0-51.0); HEMOGLOBIN 6.2 g/dL (13.6-17.8)
[2017-01-05 04:30] LABS: MANUAL DIFF YES %
[2017-01-05 04:35] LABS: PROTIME (NOT ORD) 22.4 SEC (12.0-14.5)
[2017-01-05 04:37] LABS: BUN (BLOOD UREA NITROGEN) 85 MG/DL (6-23); CALCIUM, SERUM 8.7 MG/DL (8.5-10.4); CHLORIDE, SERUM 104 MMOL/L (96-112); CO2 (CARBON DIOXIDE) 26 MMOL/L (24-34); CREATININE 2.31 MG/DL (0.70-1.30); GFR AFRICAN AMERICAN 31 ML/MIN (>=60); GFR NON AFRICAN AMERICAN 26 ML/MIN (>=60); GLUCOSE, SERUM 100 MG/DL (60-99); PHOSPHORUS, SERUM 3.6 MG/DL (2.5-4.5); POTASSIUM, SERUM 3.7 MMOL/L (3.5-5.3); SODIUM, SERUM 142 MMOL/L (135-148)
[2017-01-05 05:28] LABS: BAND NEUTROPHILS 4 %; EOSINOPHILS 1 %; EOSINOPHILS ABSOLUTE (CALC) 0.08 10/3/uL (0.0-0.53); IMMATURE GRANS ABSOLUTE (CALC) 0.08 10/3/uL (0.0-0.11); LYMPHOCYTES 6 %; LYMPHOCYTES ABSOLUTE (CALC) 0.45 10/3/uL (0.67-4.30); METAMYELOCYTES 1 %; MONOCYTES 4 %; SEGMENTED NEUTROPHIL (0) 84 %; TOTAL NUCLEATED CELLS 100
[2017-01-05 05:29] LABS: ANISOCYTOSIS 1+ (5-10/OIF) (0-5/OIF); ELLIPTOCYTES 1+ (3-10/OIF) (0-2/OIF); OVALOCYTES 1+ (3-10/OIF) (0-2/OIF); POIKILOCYTOSIS 1+ (5-10/OIF) (0-5/OIF)
[2017-01-05 12:49] LABS: ALLENS TEST Pos; BE (BASE EXCESS) -0.3 MEQ/L (0 +/- 2.5); CARBOXYHEMOGLOBIN 0.9 % (0-3); HCO3 (ACTUAL BICARBONATE) 27.1 MEQ/L (23-27); INSTRUMENT SERIAL # 11843; METHEMOGLOBIN 0.9 % (0-3); O2 CONTENT 11.4 VOL% (18-24); PCO2 (CO2 TENSION) 61 MMHG (35-45); PO2 (O2 TENSION) 200 MMHG (79-93); SAMPLE Arterial; TIDAL VOLUME 500 ML; pH 7.26 (7.37-7.43)
[2017-01-05 12:52] LABS: BASOPHILS 0.2 %; BASOPHILS ABSOLUTE 0.03 10/3/uL (0.0-0.16); EOSINOPHILS 1.7 %; EOSINOPHILS ABSOLUTE 0.21 10/3/uL (0.0-0.53); HEMOGLOBIN 7.2 g/dL (13.6-17.8); IMMATURE GRANULOCYTES 1.6 %; LYMPHOCYTES ABSOLUTE 2.62 10/3/uL (0.67-4.30); MEAN CORPUS HGB CONC 31.6 g/dL (32.0-36.0); MEAN CORPUSCULAR HEMOGLOB 30.3 pg (26.0-34.0); MEAN CORPUSCULAR VOLUME 95.8 fL (80-100); MEAN PLATELET VOLUME 10.1 fL (9.2-13.0); MONOCYTES 5.5 %; MONOCYTES ABSOLUTE 0.69 10/3/uL (0.21-1.20); NEUTROPHILS ABSOLUTE 8.75 10/3/uL (2.02-8.40); PLATELET COUNT 195 10/3/uL (150-400); RBC DISTRIBUTION WIDTH 18.5 % (12.0-16.0)
[2017-01-05 12:53] LABS: HEMATOCRIT 22.8 % (40.0-51.0); MANUAL DIFF NO %; RED CELL COUNT 2.38 10/6/uL (4.7-6.1); WHITE BLOOD CELLS 12.5 10/3/uL (4.5-10.5)
[2017-01-05 13:10] LABS: ALBUMIN 2.3 G/DL (3.5-5.0); CHLORIDE, SERUM 103 MMOL/L (96-112); CO2 (CARBON DIOXIDE) 26 MMOL/L (24-34); CREATININE 2.62 MG/DL (0.70-1.30); GFR AFRICAN AMERICAN 26 ML/MIN (>=60); GFR NON AFRICAN AMERICAN 23 ML/MIN (>=60); POTASSIUM, SERUM 3.8 MMOL/L (3.5-5.3); SGOT(AST) 40 U/L (5-40); SGPT(ALT) 7 U/L (5-65); SODIUM, SERUM 141 MMOL/L (135-148)
[2017-01-05 13:11] LABS: A/G RATIO 0.5 (0.7-1.9); ALKALINE PHOSPHATASE 191 U/L (45-117); BUN (BLOOD UREA NITROGEN) 96 MG/DL (6-23); CALCIUM, SERUM 9.8 MG/DL (8.5-10.4); GLOBULIN 4.7 G/DL (2.5-4.1); GLUCOSE, SERUM 188 MG/DL (60-99); TOTAL BILIRUBIN 1.5 MG/DL (0-1.2)
[2017-01-05 14:02] LABS: PHOSPHORUS, SERUM 4.7 MG/DL (2.5-4.5)
[2017-01-05 15:12] LABS: BE (BASE EXCESS) 1.7 MEQ/L (0 +/- 2.5); CARBOXYHEMOGLOBIN 0.3 % (0-3); HCO3 (ACTUAL BICARBONATE) 28.2 MEQ/L (23-27); HEMOBLOGIN CONTENT 7.5 G/DL (14-18); INSTRUMENT SERIAL # 11843; MODE CMV; O2 CONTENT 11.1 VOL% (18-24); PCO2 (CO2 TENSION) 56 MMHG (35-45); PO2 (O2 TENSION) 275 MMHG (79-93); SAMPLE Arterial; TIDAL VOLUME 500 ML; pH 7.32 (7.37-7.43)
[2017-01-05 15:13] LABS: ALLENS TEST Pos
[2017-01-06 04:42] LABS: INTERNATIONAL NORMAL RATI 2.5 UNITS (-)
[2017-01-06 04:45] LABS: PROTIME (NOT ORD) 26.7 SEC (12.0-14.5)
[2017-01-06 04:46] LABS: MEAN CORPUS HGB CONC 30.4 g/dL (32.0-36.0); MEAN CORPUSCULAR HEMOGLOB 29.2 pg (26.0-34.0); MEAN CORPUSCULAR VOLUME 96.2 fL (80-100); MEAN PLATELET VOLUME 10.8 fL (9.2-13.0); PLATELET COUNT 157 10/3/uL (150-400); RBC DISTRIBUTION WIDTH 18.4 % (12.0-16.0); RED CELL COUNT 2.12 10/6/uL (4.7-6.1); WHITE BLOOD CELLS 7.5 10/3/uL (4.5-10.5)
[2017-01-06 04:59] LABS: ALBUMIN 2.3 G/DL (3.5-5.0); CALCIUM, SERUM 9.1 MG/DL (8.5-10.4); CHLORIDE, SERUM 104 MMOL/L (96-112); CO2 (CARBON DIOXIDE) 26 MMOL/L (24-34); CREATININE 2.77 MG/DL (0.70-1.30); GFR AFRICAN AMERICAN 25 ML/MIN (>=60); GFR NON AFRICAN AMERICAN 21 ML/MIN (>=60); PHOSPHORUS, SERUM 4.7 MG/DL (2.5-4.5); POTASSIUM, SERUM 3.4 MMOL/L (3.5-5.3); SODIUM, SERUM 143 MMOL/L (135-148)
[2017-01-06 05:00] LABS: BUN (BLOOD UREA NITROGEN) 107 MG/DL (6-23); GLUCOSE, SERUM 119 MG/DL (60-99)
[2017-01-06 05:06] LABS: HEMOGLOBIN 6.2 g/dL (13.6-17.8)
[2017-01-06 05:07] LABS: HEMATOCRIT 20.4 % (40.0-51.0)
[2017-01-06 05:08] LABS: MANUAL DIFF YES %
[2017-01-06 05:47] LABS: BAND NEUTROPHILS 1 %; BASOPHILS 1 %; BASOPHILS ABSOLUTE (CALC) 0.08 10/3/uL (0.0-0.16); IMMATURE GRANS ABSOLUTE (CALC) 0.08 10/3/uL (0.0-0.11); LYMPHOCYTES 12 %; METAMYELOCYTES 1 %; MONOCYTES 3 %; MONOCYTES ABSOLUTE (CALC) 0.23 10/3/uL (0.21-1.20); NEUTROPHILS ABSOLUTE (CALC) 6.23 10/3/uL (2.02-8.40); SEGMENTED NEUTROPHIL (0) 82 %; TOTAL NUCLEATED CELLS 100
[2017-01-06 05:49] LABS: ANISOCYTOSIS 1+ (5-10/OIF) (0-5/OIF); PLATELET ESTIMATE ADQ (ADEQUATE)
[2017-01-07 04:17] LABS: BASOPHILS 0.2 %; BASOPHILS ABSOLUTE 0.01 10/3/uL (0.0-0.16); EOSINOPHILS ABSOLUTE 0.12 10/3/uL (0.0-0.53); HEMATOCRIT 22.3 % (40.0-51.0); IMMATURE GRANULOCYTES 1.5 %; IMMATURE GRANULOCYTES ABSOLUTE 0.09 10/3/uL (0.0-0.11); INTERNATIONAL NORMAL RATI 2.7 UNITS (-); LYMPHOCYTES 8.3 %; LYMPHOCYTES ABSOLUTE 0.51 10/3/uL (0.67-4.30); MEAN CORPUS HGB CONC 31.4 g/dL (32.0-36.0); MEAN CORPUSCULAR HEMOGLOB 30.2 pg (26.0-34.0); MEAN CORPUSCULAR VOLUME 96.1 fL (80-100); MEAN PLATELET VOLUME 10.4 fL (9.2-13.0); MONOCYTES 7.5 %; MONOCYTES ABSOLUTE 0.46 10/3/uL (0.21-1.20); NEUTROPHILS 80.5 %; NEUTROPHILS ABSOLUTE 4.96 10/3/uL (2.02-8.40); PLATELET COUNT 154 10/3/uL (150-400); PROTIME (NOT ORD) 28.8 SEC (12.0-14.5); RBC DISTRIBUTION WIDTH 18.8 % (12.0-16.0); RED CELL COUNT 2.32 10/6/uL (4.7-6.1); WHITE BLOOD CELLS 6.2 10/3/uL (4.5-10.5)
[2017-01-07 04:22] LABS: MANUAL DIFF NO %
[2017-01-07 04:31] LABS: CALCIUM, SERUM 9.4 MG/DL (8.5-10.4); CHLORIDE, SERUM 109 MMOL/L (96-112); CO2 (CARBON DIOXIDE) 26 MMOL/L (24-34); POTASSIUM, SERUM 3.6 MMOL/L (3.5-5.3); SODIUM, SERUM 145 MMOL/L (135-148)
[2017-01-07 04:32] LABS: ALBUMIN 3.2 G/DL (3.5-5.0); BUN (BLOOD UREA NITROGEN) 63 MG/DL (6-23); CREATININE 2.22 MG/DL (0.70-1.30); GFR AFRICAN AMERICAN 32 ML/MIN (>=60); GFR NON AFRICAN AMERICAN 28 ML/MIN (>=60); GLUCOSE, SERUM 86 MG/DL (60-99); PHOSPHORUS, SERUM 1.5 MG/DL (2.5-4.5)
[2017-01-07 13:55] LABS: HEMATOCRIT 21.4 % (40.0-51.0); HEMOGLOBIN 6.7 g/dL (13.6-17.8)
[2017-01-07 22:44] LABS: HEMATOCRIT 24.9 % (40.0-51.0); HEMOGLOBIN 8.2 g/dL (13.6-17.8)
[2017-01-08 03:56] LABS: BASOPHILS 0.5 %; BASOPHILS ABSOLUTE 0.03 10/3/uL (0.0-0.16); EOSINOPHILS 2.4 %; EOSINOPHILS ABSOLUTE 0.14 10/3/uL (0.0-0.53); HEMATOCRIT 25.4 % (40.0-51.0); HEMOGLOBIN 8.3 g/dL (13.6-17.8); IMMATURE GRANULOCYTES 1.4 %; IMMATURE GRANULOCYTES ABSOLUTE 0.08 10/3/uL (0.0-0.11); LYMPHOCYTES 9.3 %; LYMPHOCYTES ABSOLUTE 0.54 10/3/uL (0.67-4.30); MEAN CORPUS HGB CONC 32.7 g/dL (32.0-36.0); MEAN CORPUSCULAR HEMOGLOB 30.6 pg (26.0-34.0); MEAN CORPUSCULAR VOLUME 93.7 fL (80-100); MEAN PLATELET VOLUME 10.3 fL (9.2-13.0); MONOCYTES 10.7 %; MONOCYTES ABSOLUTE 0.62 10/3/uL (0.21-1.20); NEUTROPHILS 75.7 %; NEUTROPHILS ABSOLUTE 4.38 10/3/uL (2.02-8.40); PLATELET COUNT 138 10/3/uL (150-400); RBC DISTRIBUTION WIDTH 17.6 % (12.0-16.0); RED CELL COUNT 2.71 10/6/uL (4.7-6.1); WHITE BLOOD CELLS 5.8 10/3/uL (4.5-10.5)
[2017-01-08 03:57] LABS: MANUAL DIFF NO %
[2017-01-08 04:01] LABS: INTERNATIONAL NORMAL RATI 2.3 UNITS (-); PROTIME (NOT ORD) 25.4 SEC (12.0-14.5)
[2017-01-08 04:13] LABS: A/G RATIO 0.6 (0.7-1.9); ALBUMIN 2.7 G/DL (3.5-5.0); CALCIUM, SERUM 8.6 MG/DL (8.5-10.4); CHLORIDE, SERUM 109 MMOL/L (96-112); CO2 (CARBON DIOXIDE) 24 MMOL/L (24-34); CREATININE 2.65 MG/DL (0.70-1.30); GFR AFRICAN AMERICAN 26 ML/MIN (>=60); GFR NON AFRICAN AMERICAN 22 ML/MIN (>=60); GLOBULIN 4.2 G/DL (2.5-4.1); POTASSIUM, SERUM 3.2 MMOL/L (3.5-5.3); SGOT(AST) 52 U/L (5-40); SGPT(ALT) 11 U/L (5-65); SODIUM, SERUM 146 MMOL/L (135-148); TOTAL PROTEIN 6.9 G/DL (6.0-8.5)
[2017-01-08 04:14] LABS: ALKALINE PHOSPHATASE 162 U/L (45-117); BUN (BLOOD UREA NITROGEN) 91 MG/DL (6-23); GLUCOSE, SERUM 114 MG/DL (60-99); PHOSPHORUS, SERUM 3.7 MG/DL (2.5-4.5); TOTAL BILIRUBIN 2.3 MG/DL (0-1.2)
[2017-01-08 09:41] LABS: HEMATOCRIT 26.3 % (40.0-51.0); HEMOGLOBIN 8.8 g/dL (13.6-17.8)
[2017-01-08 09:50] LABS: POTASSIUM, SERUM 3.2 MMOL/L (3.5-5.3)
[2017-01-08 15:03] LABS: HEMATOCRIT 24.3 % (40.0-51.0); HEMOGLOBIN 8.2 g/dL (13.6-17.8)
[2017-01-08 15:20] LABS: INTERNATIONAL NORMAL RATI 1.7 UNITS (-); PROTIME (NOT ORD) 20.1 SEC (12.0-14.5)
[2017-01-08 15:47] LABS: POTASSIUM, SERUM 3.6 MMOL/L (3.5-5.3)
[2017-01-08 16:11] LABS: ALLENS TEST Pos; BE (BASE EXCESS) -4.8 MEQ/L (0 +/- 2.5); CARBOXYHEMOGLOBIN 0.3 % (0-3); HCO3 (ACTUAL BICARBONATE) 24.1 MEQ/L (23-27); INSTRUMENT SERIAL # 11843; METHEMOGLOBIN 0.6 % (0-3); O2 CONTENT 13.8 VOL% (18-24); OPERATOR ID 32214; PCO2 (CO2 TENSION) 66 MMHG (35-45); PO2 (O2 TENSION) 137 MMHG (79-93); SAMPLE Arterial; pH 7.18 (7.37-7.43)
[2017-01-08 17:25] LABS: INTERNATIONAL NORMAL RATI 1.3 UNITS (-); PARTIAL THROMBO TIME 34.9 SEC (22.5-37.2); PROTIME (NOT ORD) 16.1 SEC (12.0-14.5)
[2017-01-08 17:26] LABS: BASOPHILS 0.5 %; BASOPHILS ABSOLUTE 0.04 10/3/uL (0.0-0.16); EOSINOPHILS 3.6 %; HEMATOCRIT 25.2 % (40.0-51.0); HEMOGLOBIN 7.6 g/dL (13.6-17.8); IMMATURE GRANULOCYTES 2.5 %; IMMATURE GRANULOCYTES ABSOLUTE 0.21 10/3/uL (0.0-0.11); LYMPHOCYTES 14.3 %; MEAN CORPUSCULAR HEMOGLOB 29.5 pg (26.0-34.0); MEAN PLATELET VOLUME 10.5 fL (9.2-13.0); MONOCYTES 5.5 %; MONOCYTES ABSOLUTE 0.46 10/3/uL (0.21-1.20); NEUTROPHILS 73.6 %; NEUTROPHILS ABSOLUTE 6.17 10/3/uL (2.02-8.40); PLATELET COUNT 142 10/3/uL (150-400); RBC DISTRIBUTION WIDTH 17.9 % (12.0-16.0); RED CELL COUNT 2.58 10/6/uL (4.7-6.1)
[2017-01-08 17:28] LABS: MANUAL DIFF NO %; MEAN CORPUS HGB CONC 30.2 g/dL (32.0-36.0); MEAN CORPUSCULAR VOLUME 97.7 fL (80-100); WHITE BLOOD CELLS 8.4 10/3/uL (4.5-10.5)
[2017-01-08 17:33] LABS: CHLORIDE, SERUM 108 MMOL/L (96-112); CO2 (CARBON DIOXIDE) 28 MMOL/L (24-34); CREATININE 2.76 MG/DL (0.70-1.30); GFR AFRICAN AMERICAN 25 ML/MIN (>=60); GFR NON AFRICAN AMERICAN 21 ML/MIN (>=60); POTASSIUM, SERUM 3.9 MMOL/L (3.5-5.3); SODIUM, SERUM 148 MMOL/L (135-148)
[2017-01-08 17:34] LABS: BUN (BLOOD UREA NITROGEN) 106 MG/DL (6-23); GLUCOSE, SERUM 157 MG/DL (60-99)
[2017-01-08 23:02] LABS: HEMATOCRIT 26.2 % (40.0-51.0); HEMOGLOBIN 8.6 g/dL (13.6-17.8)
[2017-01-08 23:13] LABS: A/G RATIO 0.7 (0.7-1.9); ALBUMIN 2.8 G/DL (3.5-5.0); ALKALINE PHOSPHATASE 146 U/L (45-117); BUN (BLOOD UREA NITROGEN) 86 MG/DL (6-23); CALCIUM, SERUM 7.3 MG/DL (8.5-10.4); CHLORIDE, SERUM 105 MMOL/L (96-112); CO2 (CARBON DIOXIDE) 28 MMOL/L (24-34); CREATININE 2.14 MG/DL (0.70-1.30); GFR AFRICAN AMERICAN 34 ML/MIN (>=60); GFR NON AFRICAN AMERICAN 29 ML/MIN (>=60); GLOBULIN 4.1 G/DL (2.5-4.1); GLUCOSE, SERUM 156 MG/DL (60-99); PHOSPHORUS, SERUM 3.1 MG/DL (2.5-4.5); POTASSIUM, SERUM 3.5 MMOL/L (3.5-5.3); SGOT(AST) 59 U/L (5-40); SGPT(ALT) 17 U/L (5-65); SODIUM, SERUM 143 MMOL/L (135-148); TOTAL BILIRUBIN 3.8 MG/DL (0-1.2); TOTAL PROTEIN 6.9 G/DL (6.0-8.5)
[2017-01-09 03:07] LABS: BE (BASE EXCESS) 3.1 MEQ/L (0 +/- 2.5); CARBOXYHEMOGLOBIN 0.8 % (0-3); HCO3 (ACTUAL BICARBONATE) 28.2 MEQ/L (23-27); HEMOBLOGIN CONTENT 9.3 G/DL (14-18); INSTRUMENT SERIAL # 11843; METHEMOGLOBIN 0.5 % (0-3); MODE CMV; O2 CONTENT 12.3 VOL% (18-24); OPERATOR ID 13415; PCO2 (CO2 TENSION) 46 MMHG (35-45); PO2 (O2 TENSION) 75 MMHG (79-93); SAMPLE Arterial; TIDAL VOLUME 500 ML; pH 7.41 (7.37-7.43)
[2017-01-09 04:04] LABS: BASOPHILS 0.3 %; BASOPHILS ABSOLUTE 0.02 10/3/uL (0.0-0.16); EOSINOPHILS 2.7 %; HEMOGLOBIN 8.6 g/dL (13.6-17.8); IMMATURE GRANULOCYTES 1.7 %; IMMATURE GRANULOCYTES ABSOLUTE 0.13 10/3/uL (0.0-0.11); LYMPHOCYTES 3.8 %; LYMPHOCYTES ABSOLUTE 0.28 10/3/uL (0.67-4.30); MEAN CORPUSCULAR HEMOGLOB 30.8 pg (26.0-34.0); MEAN PLATELET VOLUME 9.6 fL (9.2-13.0); MONOCYTES 6.2 %; MONOCYTES ABSOLUTE 0.46 10/3/uL (0.21-1.20); NEUTROPHILS 85.3 %; NEUTROPHILS ABSOLUTE 6.36 10/3/uL (2.02-8.40); PLATELET COUNT 116 10/3/uL (150-400); RBC DISTRIBUTION WIDTH 17.1 % (12.0-16.0); RED CELL COUNT 2.79 10/6/uL (4.7-6.1); WHITE BLOOD CELLS 7.5 10/3/uL (4.5-10.5)
[2017-01-09 04:08] LABS: INTERNATIONAL NORMAL RATI 1.3 UNITS (-); MANUAL DIFF NO %; MEAN CORPUS HGB CONC 33.1 g/dL (32.0-36.0); MEAN CORPUSCULAR VOLUME 93.2 fL (80-100); PROTIME (NOT ORD) 15.9 SEC (12.0-14.5)
[2017-01-09 04:35] LABS: ALBUMIN 2.8 G/DL (3.5-5.0); CHLORIDE, SERUM 104 MMOL/L (96-112); CO2 (CARBON DIOXIDE) 27 MMOL/L (24-34); GLUCOSE, SERUM 129 MG/DL (60-99); POTASSIUM, SERUM 3.5 MMOL/L (3.5-5.3); SODIUM, SERUM 142 MMOL/L (135-148)
[2017-01-09 04:36] LABS: BUN (BLOOD UREA NITROGEN) 53 MG/DL (6-23); CALCIUM, SERUM 6.3 MG/DL (8.5-10.4); CREATININE 1.52 MG/DL (0.70-1.30); GFR AFRICAN AMERICAN 51 ML/MIN (>=60); GFR NON AFRICAN AMERICAN 44 ML/MIN (>=60); PHOSPHORUS, SERUM 1.7 MG/DL (2.5-4.5)
[2017-01-09 10:30] LABS: HEMATOCRIT 25.3 % (40.0-51.0); HEMOGLOBIN 8.5 g/dL (13.6-17.8); MEAN CORPUS HGB CONC 33.6 g/dL (32.0-36.0); MEAN CORPUSCULAR HEMOGLOB 31.1 pg (26.0-34.0); MEAN CORPUSCULAR VOLUME 92.7 fL (80-100); MEAN PLATELET VOLUME 9.3 fL (9.2-13.0); PLATELET COUNT 107 10/3/uL (150-400); RBC DISTRIBUTION WIDTH 17.4 % (12.0-16.0); RED CELL COUNT 2.73 10/6/uL (4.7-6.1); WHITE BLOOD CELLS 7.5 10/3/uL (4.5-10.5)
[2017-01-09 10:31] LABS: MANUAL DIFF YES %
[2017-01-09 10:40] LABS: BUN (BLOOD UREA NITROGEN) 39 MG/DL (6-23); CALCIUM, SERUM 6.2 MG/DL (8.5-10.4); CHLORIDE, SERUM 101 MMOL/L (96-112); CO2 (CARBON DIOXIDE) 29 MMOL/L (24-34); CREATININE 1.05 MG/DL (0.70-1.30); GFR AFRICAN AMERICAN 80 ML/MIN (>=60); GFR NON AFRICAN AMERICAN 69 ML/MIN (>=60); GLUCOSE, SERUM 112 MG/DL (60-99); PHOSPHORUS, SERUM 3.2 MG/DL (2.5-4.5); POTASSIUM, SERUM 3.6 MMOL/L (3.5-5.3); SODIUM, SERUM 141 MMOL/L (135-148)
[2017-01-09 10:51] LABS: ANISOCYTOSIS 1+ (5-10/OIF) (0-5/OIF); BAND NEUTROPHILS 17 %; EOSINOPHILS 4 %; IMMATURE GRANS ABSOLUTE (CALC) 0.23 10/3/uL (0.0-0.11); LYMPHOCYTES 2 %; LYMPHOCYTES ABSOLUTE (CALC) 0.15 10/3/uL (0.67-4.30); METAMYELOCYTES 2 %; MONOCYTES 3 %; MONOCYTES ABSOLUTE (CALC) 0.23 10/3/uL (0.21-1.20); MYELOCYTES 1 %; PLATELET ESTIMATE SLT DEC (ADEQUATE); POLYCHROMASIA 1+ (2-5/OIF) (0-1/OIF); SEGMENTED NEUTROPHIL (0) 71 %; TOTAL NUCLEATED CELLS 100
[2017-01-09 15:26] LABS: BASOPHILS 0.3 %; BASOPHILS ABSOLUTE 0.02 10/3/uL (0.0-0.16); EOSINOPHILS 4.7 %; HEMATOCRIT 24.8 % (40.0-51.0); HEMOGLOBIN 8.1 g/dL (13.6-17.8); IMMATURE GRANULOCYTES 1.6 %; LYMPHOCYTES 8.9 %; LYMPHOCYTES ABSOLUTE 0.57 10/3/uL (0.67-4.30); MEAN CORPUS HGB CONC 32.7 g/dL (32.0-36.0); MEAN CORPUSCULAR VOLUME 91.9 fL (80-100); MEAN PLATELET VOLUME 9.7 fL (9.2-13.0); MONOCYTES 1.2 %; MONOCYTES ABSOLUTE 0.08 10/3/uL (0.21-1.20); NEUTROPHILS 83.3 %; NEUTROPHILS ABSOLUTE 5.37 10/3/uL (2.02-8.40); PLATELET COUNT 105 10/3/uL (150-400); RBC DISTRIBUTION WIDTH 17.8 % (12.0-16.0); WHITE BLOOD CELLS 6.4 10/3/uL (4.5-10.5)
[2017-01-09 15:27] LABS: MANUAL DIFF NO %
[2017-01-09 15:36] LABS: CALCIUM, SERUM 7.1 MG/DL (8.5-10.4); CHLORIDE, SERUM 101 MMOL/L (96-112); CO2 (CARBON DIOXIDE) 28 MMOL/L (24-34); CREATININE 0.86 MG/DL (0.70-1.30); GFR AFRICAN AMERICAN 98 ML/MIN (>=60); GFR NON AFRICAN AMERICAN 84 ML/MIN (>=60); GLUCOSE, SERUM 114 MG/DL (60-99); PHOSPHORUS, SERUM 2.3 MG/DL (2.5-4.5); POTASSIUM, SERUM 3.9 MMOL/L (3.5-5.3); SODIUM, SERUM 141 MMOL/L (135-148)
[2017-01-09 15:37] LABS: BUN (BLOOD UREA NITROGEN) 25 MG/DL (6-23)
[2017-01-09 18:05] LABS: PROCALCITONIN 1.11 ng/mL (<0.5)
[2017-01-09 22:27] LABS: BASOPHILS 0.2 %; BASOPHILS ABSOLUTE 0.01 10/3/uL (0.0-0.16); EOSINOPHILS 3.8 %; EOSINOPHILS ABSOLUTE 0.25 10/3/uL (0.0-0.53); HEMATOCRIT 24.3 % (40.0-51.0); HEMOGLOBIN 8.1 g/dL (13.6-17.8); IMMATURE GRANULOCYTES 0.9 %; IMMATURE GRANULOCYTES ABSOLUTE 0.06 10/3/uL (0.0-0.11); LYMPHOCYTES 5.1 %; LYMPHOCYTES ABSOLUTE 0.33 10/3/uL (0.67-4.30); MEAN CORPUS HGB CONC 33.3 g/dL (32.0-36.0); MEAN CORPUSCULAR HEMOGLOB 30.9 pg (26.0-34.0); MEAN CORPUSCULAR VOLUME 92.7 fL (80-100); MEAN PLATELET VOLUME 9.6 fL (9.2-13.0); MONOCYTES 3.1 %; NEUTROPHILS 86.9 %; NEUTROPHILS ABSOLUTE 5.68 10/3/uL (2.02-8.40); PLATELET COUNT 95 10/3/uL (150-400); RBC DISTRIBUTION WIDTH 17.6 % (12.0-16.0); RED CELL COUNT 2.62 10/6/uL (4.7-6.1); WHITE BLOOD CELLS 6.5 10/3/uL (4.5-10.5)
[2017-01-09 22:33] LABS: MANUAL DIFF NO %
[2017-01-09 22:48] LABS: CALCIUM, SERUM 7.2 MG/DL (8.5-10.4); CHLORIDE, SERUM 101 MMOL/L (96-112); CO2 (CARBON DIOXIDE) 28 MMOL/L (24-34); CREATININE 0.73 MG/DL (0.70-1.30); GFR AFRICAN AMERICAN 104 ML/MIN (>=60); GFR NON AFRICAN AMERICAN 90 ML/MIN (>=60); GLUCOSE, SERUM 107 MG/DL (60-99); POTASSIUM, SERUM 4.2 MMOL/L (3.5-5.3); SODIUM, SERUM 141 MMOL/L (135-148)
[2017-01-09 22:49] LABS: BUN (BLOOD UREA NITROGEN) 18 MG/DL (6-23)
[2017-01-10 03:21] LABS: BE (BASE EXCESS) 3.7 MEQ/L (0 +/- 2.5); CARBOXYHEMOGLOBIN 1.4 % (0-3); HCO3 (ACTUAL BICARBONATE) 27.9 MEQ/L (23-27); HEMOBLOGIN CONTENT 8.9 G/DL (14-18); INSTRUMENT SERIAL # 11843; METHEMOGLOBIN 0.6 % (0-3); MODE CMV; O2 CONTENT 10.9 VOL% (18-24); OPERATOR ID 13415; PCO2 (CO2 TENSION) 41 MMHG (35-45); PO2 (O2 TENSION) 56 MMHG (79-93); SAMPLE Arterial; TIDAL VOLUME 500 ML; pH 7.45 (7.37-7.43)
[2017-01-10 03:29] LABS: ASCORBIC ACID (UR NOT ORDER) 40 (NEG); BILIRUBIN, URINE NEGATIVE (NEG); KETONE, URINE NEGATIVE (NEG); LEUKOCYTE ESTERASE(NOT OR MOD (NEG); WBC (NOT ORDERED) (RFLEX) 77 (0-5)
[2017-01-10 03:55] LABS: BASOPHILS 0.3 %; BASOPHILS ABSOLUTE 0.02 10/3/uL (0.0-0.16); EOSINOPHILS 5.4 %; EOSINOPHILS ABSOLUTE 0.34 10/3/uL (0.0-0.53); HEMATOCRIT 24.4 % (40.0-51.0); IMMATURE GRANULOCYTES 0.8 %; IMMATURE GRANULOCYTES ABSOLUTE 0.05 10/3/uL (0.0-0.11); LYMPHOCYTES 4.9 %; LYMPHOCYTES ABSOLUTE 0.31 10/3/uL (0.67-4.30); MEAN CORPUS HGB CONC 32.8 g/dL (32.0-36.0); MEAN CORPUSCULAR HEMOGLOB 30.3 pg (26.0-34.0); MEAN CORPUSCULAR VOLUME 92.4 fL (80-100); MEAN PLATELET VOLUME 10.1 fL (9.2-13.0); MONOCYTES 3.3 %; MONOCYTES ABSOLUTE 0.21 10/3/uL (0.21-1.20); NEUTROPHILS 85.3 %; NEUTROPHILS ABSOLUTE 5.38 10/3/uL (2.02-8.40); PLATELET COUNT 100 10/3/uL (150-400); RBC DISTRIBUTION WIDTH 18.1 % (12.0-16.0); RED CELL COUNT 2.64 10/6/uL (4.7-6.1); WHITE BLOOD CELLS 6.3 10/3/uL (4.5-10.5)
[2017-01-10 04:05] LABS: MANUAL DIFF NO %
[2017-01-10 04:14] LABS: A/G RATIO 0.6 (0.7-1.9); ALBUMIN 2.3 G/DL (3.5-5.0); ALKALINE PHOSPHATASE 135 U/L (45-117); CALCIUM, SERUM 7.3 MG/DL (8.5-10.4); CHLORIDE, SERUM 101 MMOL/L (96-112); CO2 (CARBON DIOXIDE) 28 MMOL/L (24-34); CREATININE 0.65 MG/DL (0.70-1.30); GFR AFRICAN AMERICAN 110 ML/MIN (>=60); GFR NON AFRICAN AMERICAN 95 ML/MIN (>=60); GLOBULIN 4.1 G/DL (2.5-4.1); GLUCOSE, SERUM 93 MG/DL (60-99); SGOT(AST) 73 U/L (5-40); SGPT(ALT) 12 U/L (5-65); SODIUM, SERUM 141 MMOL/L (135-148); TOTAL BILIRUBIN 3.7 MG/DL (0-1.2); TOTAL PROTEIN 6.4 G/DL (6.0-8.5)
[2017-01-10 04:15] LABS: BUN (BLOOD UREA NITROGEN) 13 MG/DL (6-23); PHOSPHORUS, SERUM 1.7 MG/DL (2.5-4.5)
[2017-01-10 04:31] LABS: INTERNATIONAL NORMAL RATI 1.4 UNITS (-); PARTIAL THROMBO TIME 45.7 SEC (22.5-37.2); PROTIME (NOT ORD) 17.2 SEC (12.0-14.5)
[2017-01-10 10:03] LABS: BASOPHILS 0.2 %; BASOPHILS ABSOLUTE 0.01 10/3/uL (0.0-0.16); EOSINOPHILS 5.2 %; EOSINOPHILS ABSOLUTE 0.34 10/3/uL (0.0-0.53); HEMATOCRIT 25.8 % (40.0-51.0); HEMOGLOBIN 8.4 g/dL (13.6-17.8); IMMATURE GRANULOCYTES 0.9 %; IMMATURE GRANULOCYTES ABSOLUTE 0.06 10/3/uL (0.0-0.11); LYMPHOCYTES 7.1 %; LYMPHOCYTES ABSOLUTE 0.46 10/3/uL (0.67-4.30); MEAN CORPUS HGB CONC 32.6 g/dL (32.0-36.0); MEAN CORPUSCULAR HEMOGLOB 29.8 pg (26.0-34.0); MEAN CORPUSCULAR VOLUME 91.5 fL (80-100); MEAN PLATELET VOLUME 10.4 fL (9.2-13.0); MONOCYTES 2.9 %; MONOCYTES ABSOLUTE 0.19 10/3/uL (0.21-1.20); NEUTROPHILS 83.7 %; NEUTROPHILS ABSOLUTE 5.46 10/3/uL (2.02-8.40); PLATELET COUNT 93 10/3/uL (150-400); RED CELL COUNT 2.82 10/6/uL (4.7-6.1); WHITE BLOOD CELLS 6.5 10/3/uL (4.5-10.5)
[2017-01-10 10:11] LABS: BUN (BLOOD UREA NITROGEN) 11 MG/DL (6-23); CALCIUM, SERUM 7.2 MG/DL (8.5-10.4); CHLORIDE, SERUM 99 MMOL/L (96-112); CO2 (CARBON DIOXIDE) 29 MMOL/L (24-34); GFR AFRICAN AMERICAN 113 ML/MIN (>=60); GFR NON AFRICAN AMERICAN 98 ML/MIN (>=60); GLUCOSE, SERUM 135 MG/DL (60-99); PHOSPHORUS, SERUM 2.3 MG/DL (2.5-4.5); POTASSIUM, SERUM 3.7 MMOL/L (3.5-5.3); SODIUM, SERUM 139 MMOL/L (135-148)
[2017-01-10 10:15] LABS: MANUAL DIFF NO %
[2017-01-10 12:29] LABS: PROCALCITONIN 1.44 ng/mL (<0.5)
[2017-01-10 16:46] LABS: BASOPHILS 0.2 %; BASOPHILS ABSOLUTE 0.01 10/3/uL (0.0-0.16); EOSINOPHILS 2.8 %; EOSINOPHILS ABSOLUTE 0.17 10/3/uL (0.0-0.53); HEMATOCRIT 24.5 % (40.0-51.0); HEMOGLOBIN 7.8 g/dL (13.6-17.8); IMMATURE GRANULOCYTES 0.7 %; IMMATURE GRANULOCYTES ABSOLUTE 0.04 10/3/uL (0.0-0.11); LYMPHOCYTES ABSOLUTE 0.24 10/3/uL (0.67-4.30); MEAN CORPUS HGB CONC 31.8 g/dL (32.0-36.0); MEAN CORPUSCULAR HEMOGLOB 29.5 pg (26.0-34.0); MEAN CORPUSCULAR VOLUME 92.8 fL (80-100); MEAN PLATELET VOLUME 10.9 fL (9.2-13.0); MONOCYTES 4.5 %; MONOCYTES ABSOLUTE 0.27 10/3/uL (0.21-1.20); NEUTROPHILS 87.8 %; NEUTROPHILS ABSOLUTE 5.29 10/3/uL (2.02-8.40); PLATELET COUNT 87 10/3/uL (150-400); RED CELL COUNT 2.64 10/6/uL (4.7-6.1)
[2017-01-10 16:48] LABS: MANUAL DIFF NO %
[2017-01-10 16:57] LABS: BUN (BLOOD UREA NITROGEN) 8 MG/DL (6-23); CALCIUM, SERUM 7.6 MG/DL (8.5-10.4); CHLORIDE, SERUM 98 MMOL/L (96-112); CO2 (CARBON DIOXIDE) 29 MMOL/L (24-34); CREATININE 0.57 MG/DL (0.70-1.30); GFR AFRICAN AMERICAN 116 ML/MIN (>=60); GFR NON AFRICAN AMERICAN 100 ML/MIN (>=60); GLUCOSE, SERUM 134 MG/DL (60-99); PHOSPHORUS, SERUM 2.9 MG/DL (2.5-4.5); SODIUM, SERUM 139 MMOL/L (135-148)
[2017-01-10 19:11] LABS: BE (BASE EXCESS) 3.3 MEQ/L (0 +/- 2.5); CARBOXYHEMOGLOBIN 1.1 % (0-3); HCO3 (ACTUAL BICARBONATE) 28.8 MEQ/L (23-27); HEMOBLOGIN CONTENT 8.8 G/DL (14-18); INSTRUMENT SERIAL # 11843; METHEMOGLOBIN 0.7 % (0-3); O2 CONTENT 12.2 VOL% (18-24); OPERATOR ID 13415; PCO2 (CO2 TENSION) 49 MMHG (35-45); PO2 (O2 TENSION) 133 MMHG (79-93); SAMPLE Arterial; TIDAL VOLUME 400 ML; pH 7.39 (7.37-7.43)
[2017-01-10 22:56] LABS: HEMOGLOBIN 7.5 g/dL (13.6-17.8); MEAN CORPUS HGB CONC 32.6 g/dL (32.0-36.0); MEAN CORPUSCULAR HEMOGLOB 30.5 pg (26.0-34.0); MEAN CORPUSCULAR VOLUME 93.5 fL (80-100); PLATELET COUNT 112 10/3/uL (150-400); RED CELL COUNT 2.46 10/6/uL (4.7-6.1); WHITE BLOOD CELLS 6.6 10/3/uL (4.5-10.5)
[2017-01-10 23:04] LABS: MANUAL DIFF YES %
[2017-01-10 23:11] LABS: BUN (BLOOD UREA NITROGEN) 8 MG/DL (6-23); CALCIUM, SERUM 7.9 MG/DL (8.5-10.4); CHLORIDE, SERUM 97 MMOL/L (96-112); CO2 (CARBON DIOXIDE) 30 MMOL/L (24-34); CREATININE 0.72 MG/DL (0.70-1.30); GFR AFRICAN AMERICAN 105 ML/MIN (>=60); GFR NON AFRICAN AMERICAN 91 ML/MIN (>=60); GLUCOSE, SERUM 115 MG/DL (60-99); PHOSPHORUS, SERUM 2.4 MG/DL (2.5-4.5); POTASSIUM, SERUM 4.9 MMOL/L (3.5-5.3); SODIUM, SERUM 136 MMOL/L (135-148)
[2017-01-10 23:24] LABS: BAND NEUTROPHILS 5 %; EOSINOPHILS 4 %; EOSINOPHILS ABSOLUTE (CALC) 0.26 10/3/uL (0.0-0.53); LYMPHOCYTES 5 %; LYMPHOCYTES ABSOLUTE (CALC) 0.33 10/3/uL (0.67-4.30); MONOCYTES 4 %; MONOCYTES ABSOLUTE (CALC) 0.26 10/3/uL (0.21-1.20); NEUTROPHILS ABSOLUTE (CALC) 5.74 10/3/uL (2.02-8.40); SEGMENTED NEUTROPHIL (0) 82 %; TOTAL NUCLEATED CELLS 100
[2017-01-10 23:25] LABS: ANISOCYTOSIS 1+ (5-10/OIF) (0-5/OIF); PLATELET ESTIMATE SLT DEC (ADEQUATE)
[2017-01-11 03:39] LABS: BASOPHILS 0.1 %; BASOPHILS ABSOLUTE 0.01 10/3/uL (0.0-0.16); EOSINOPHILS 2.5 %; EOSINOPHILS ABSOLUTE 0.17 10/3/uL (0.0-0.53); HEMATOCRIT 22.3 % (40.0-51.0); HEMOGLOBIN 7.2 g/dL (13.6-17.8); IMMATURE GRANULOCYTES 0.9 %; IMMATURE GRANULOCYTES ABSOLUTE 0.06 10/3/uL (0.0-0.11); LYMPHOCYTES 4.5 %; LYMPHOCYTES ABSOLUTE 0.31 10/3/uL (0.67-4.30); MEAN CORPUS HGB CONC 32.3 g/dL (32.0-36.0); MEAN CORPUSCULAR HEMOGLOB 30.3 pg (26.0-34.0); MEAN CORPUSCULAR VOLUME 93.7 fL (80-100); MEAN PLATELET VOLUME 9.9 fL (9.2-13.0); MONOCYTES 3.6 %; MONOCYTES ABSOLUTE 0.25 10/3/uL (0.21-1.20); NEUTROPHILS 88.4 %; NEUTROPHILS ABSOLUTE 6.07 10/3/uL (2.02-8.40); PLATELET COUNT 87 10/3/uL (150-400); RBC DISTRIBUTION WIDTH 17.9 % (12.0-16.0); RED CELL COUNT 2.38 10/6/uL (4.7-6.1); WHITE BLOOD CELLS 6.9 10/3/uL (4.5-10.5)
[2017-01-11 03:40] LABS: MANUAL DIFF NO %
[2017-01-11 03:40] LABS: BE (BASE EXCESS) 3.6 MEQ/L (0 +/- 2.5); CARBOXYHEMOGLOBIN 1.5 % (0-3); HCO3 (ACTUAL BICARBONATE) 29.3 MEQ/L (23-27); HEMOBLOGIN CONTENT 7.9 G/DL (14-18); INSTRUMENT SERIAL # 11843; METHEMOGLOBIN 0.8 % (0-3); MODE CMV; O2 CONTENT 10.8 VOL% (18-24); OPERATOR ID 13415; PCO2 (CO2 TENSION) 51 MMHG (35-45); PO2 (O2 TENSION) 113 MMHG (79-93); SAMPLE Arterial; TIDAL VOLUME 400 ML; pH 7.38 (7.37-7.43)
[2017-01-11 04:06] LABS: BUN (BLOOD UREA NITROGEN) 7 MG/DL (6-23); CALCIUM, SERUM 7.6 MG/DL (8.5-10.4); CHLORIDE, SERUM 98 MMOL/L (96-112); CO2 (CARBON DIOXIDE) 29 MMOL/L (24-34); CREATININE 0.61 MG/DL (0.70-1.30); GFR AFRICAN AMERICAN 112 ML/MIN (>=60); GFR NON AFRICAN AMERICAN 97 ML/MIN (>=60); GLUCOSE, SERUM 131 MG/DL (60-99); SODIUM, SERUM 137 MMOL/L (135-148)
[2017-01-11 04:08] LABS: ALBUMIN 3.4 G/DL (3.5-5.0); POTASSIUM, SERUM 3.9 MMOL/L (3.5-5.3)
[2017-01-11 10:05] LABS: HEMATOCRIT 21.3 % (40.0-51.0); HEMOGLOBIN 6.8 g/dL (13.6-17.8); MEAN CORPUS HGB CONC 31.9 g/dL (32.0-36.0); MEAN CORPUSCULAR HEMOGLOB 29.8 pg (26.0-34.0); MEAN CORPUSCULAR VOLUME 93.4 fL (80-100); MEAN PLATELET VOLUME 9.7 fL (9.2-13.0); PLATELET COUNT 87 10/3/uL (150-400); RED CELL COUNT 2.28 10/6/uL (4.7-6.1); WHITE BLOOD CELLS 5.9 10/3/uL (4.5-10.5)
[2017-01-11 10:06] LABS: MANUAL DIFF YES %
[2017-01-11 10:17] LABS: BUN (BLOOD UREA NITROGEN) 7 MG/DL (6-23); CALCIUM, SERUM 7.9 MG/DL (8.5-10.4); CHLORIDE, SERUM 97 MMOL/L (96-112); CO2 (CARBON DIOXIDE) 28 MMOL/L (24-34); CREATININE 0.63 MG/DL (0.70-1.30); GFR AFRICAN AMERICAN 111 ML/MIN (>=60); GFR NON AFRICAN AMERICAN 96 ML/MIN (>=60); GLUCOSE, SERUM 116 MG/DL (60-99); POTASSIUM, SERUM 3.6 MMOL/L (3.5-5.3); SODIUM, SERUM 138 MMOL/L (135-148)
[2017-01-11 10:18] LABS: PHOSPHORUS, SERUM 3.1 MG/DL (2.5-4.5)
[2017-01-11 10:41] LABS: BAND NEUTROPHILS 11 %; EOSINOPHILS 2 %; EOSINOPHILS ABSOLUTE (CALC) 0.12 10/3/uL (0.0-0.53); LYMPHOCYTES 3 %; LYMPHOCYTES ABSOLUTE (CALC) 0.18 10/3/uL (0.67-4.30); MONOCYTES 4 %; MONOCYTES ABSOLUTE (CALC) 0.24 10/3/uL (0.21-1.20); NEUTROPHILS ABSOLUTE (CALC) 5.37 10/3/uL (2.02-8.40); SEGMENTED NEUTROPHIL (0) 80 %; TOTAL NUCLEATED CELLS 100
[2017-01-11 10:42] LABS: ANISOCYTOSIS 1+ (5-10/OIF) (0-5/OIF); MACROCYTES 1+ (5-10/OIF) (0-5/OIF); PLATELET ESTIMATE DEC (ADEQUATE)
[2017-01-11 10:43] LABS: BASOPHILIC STIPPLING 1+ (2-5/OIF) (0-1/OIF)
[2017-01-11 16:29] LABS: BUN (BLOOD UREA NITROGEN) 8 MG/DL (6-23); CALCIUM, SERUM 7.9 MG/DL (8.5-10.4); CHLORIDE, SERUM 98 MMOL/L (96-112); CO2 (CARBON DIOXIDE) 29 MMOL/L (24-34); CREATININE 0.64 MG/DL (0.70-1.30); GFR AFRICAN AMERICAN 110 ML/MIN (>=60); GFR NON AFRICAN AMERICAN 95 ML/MIN (>=60); GLUCOSE, SERUM 130 MG/DL (60-99); POTASSIUM, SERUM 3.5 MMOL/L (3.5-5.3); SODIUM, SERUM 139 MMOL/L (135-148)
[2017-01-11 17:20] LABS: BASOPHILS 0.3 %; BASOPHILS ABSOLUTE 0.02 10/3/uL (0.0-0.16); EOSINOPHILS 2.5 %; EOSINOPHILS ABSOLUTE 0.18 10/3/uL (0.0-0.53); HEMATOCRIT 22.6 % (40.0-51.0); HEMOGLOBIN 7.2 g/dL (13.6-17.8); IMMATURE GRANULOCYTES 1.2 %; IMMATURE GRANULOCYTES ABSOLUTE 0.09 10/3/uL (0.0-0.11); LYMPHOCYTES 7.2 %; LYMPHOCYTES ABSOLUTE 0.52 10/3/uL (0.67-4.30); MEAN CORPUS HGB CONC 31.9 g/dL (32.0-36.0); MEAN CORPUSCULAR HEMOGLOB 29.5 pg (26.0-34.0); MEAN CORPUSCULAR VOLUME 92.6 fL (80-100); MEAN PLATELET VOLUME 9.4 fL (9.2-13.0); MONOCYTES 2.1 %; MONOCYTES ABSOLUTE 0.15 10/3/uL (0.21-1.20); NEUTROPHILS 86.7 %; NEUTROPHILS ABSOLUTE 6.29 10/3/uL (2.02-8.40); PLATELET COUNT 81 10/3/uL (150-400); RBC DISTRIBUTION WIDTH 17.7 % (12.0-16.0); RED CELL COUNT 2.44 10/6/uL (4.7-6.1); WHITE BLOOD CELLS 7.3 10/3/uL (4.5-10.5)
[2017-01-11 17:22] LABS: MANUAL DIFF NO %
[2017-01-11 22:05] LABS: BASOPHILS 0.1 %; BASOPHILS ABSOLUTE 0.01 10/3/uL (0.0-0.16); EOSINOPHILS 0.3 %; EOSINOPHILS ABSOLUTE 0.03 10/3/uL (0.0-0.53); HEMATOCRIT 24.3 % (40.0-51.0); HEMOGLOBIN 7.9 g/dL (13.6-17.8); IMMATURE GRANULOCYTES 1.4 %; IMMATURE GRANULOCYTES ABSOLUTE 0.12 10/3/uL (0.0-0.11); LYMPHOCYTES 2.5 %; LYMPHOCYTES ABSOLUTE 0.22 10/3/uL (0.67-4.30); MANUAL DIFF NO %; MEAN CORPUS HGB CONC 32.5 g/dL (32.0-36.0); MEAN CORPUSCULAR VOLUME 92.4 fL (80-100); MEAN PLATELET VOLUME 10.6 fL (9.2-13.0); MONOCYTES 3.1 %; MONOCYTES ABSOLUTE 0.27 10/3/uL (0.21-1.20); NEUTROPHILS 92.6 %; NEUTROPHILS ABSOLUTE 7.98 10/3/uL (2.02-8.40); PLATELET COUNT 84 10/3/uL (150-400); RBC DISTRIBUTION WIDTH 18.4 % (12.0-16.0); RED CELL COUNT 2.63 10/6/uL (4.7-6.1); WHITE BLOOD CELLS 8.6 10/3/uL (4.5-10.5)
[2017-01-11 22:14] LABS: BUN (BLOOD UREA NITROGEN) 8 MG/DL (6-23); CALCIUM, SERUM 7.9 MG/DL (8.5-10.4); CHLORIDE, SERUM 97 MMOL/L (96-112); CO2 (CARBON DIOXIDE) 27 MMOL/L (24-34); CREATININE 0.69 MG/DL (0.70-1.30); GFR AFRICAN AMERICAN 107 ML/MIN (>=60); GFR NON AFRICAN AMERICAN 92 ML/MIN (>=60); GLUCOSE, SERUM 136 MG/DL (60-99); PHOSPHORUS, SERUM 2.4 MG/DL (2.5-4.5); POTASSIUM, SERUM 4.2 MMOL/L (3.5-5.3); SODIUM, SERUM 137 MMOL/L (135-148)
[2017-01-11 22:47] LABS: BE (BASE EXCESS) 0.1 MEQ/L (0 +/- 2.5); CARBOXYHEMOGLOBIN 1.8 % (0-3); HCO3 (ACTUAL BICARBONATE) 26.6 MEQ/L (23-27); HEMOBLOGIN CONTENT 8.9 G/DL (14-18); INSTRUMENT SERIAL # 11843; METHEMOGLOBIN 0.5 % (0-3); MODE CMV; O2 CONTENT 11.6 VOL% (18-24); OPERATOR ID 16469; PCO2 (CO2 TENSION) 53 MMHG (35-45); PO2 (O2 TENSION) 76 MMHG (79-93); SAMPLE Arterial; TIDAL VOLUME 400 ML; pH 7.32 (7.37-7.43)
[2017-01-12 03:59] LABS: BASOPHILS 0.1 %; BASOPHILS ABSOLUTE 0.01 10/3/uL (0.0-0.16); EOSINOPHILS 0 %; HEMATOCRIT 23.9 % (40.0-51.0); HEMOGLOBIN 7.7 g/dL (13.6-17.8); IMMATURE GRANULOCYTES 1.5 %; IMMATURE GRANULOCYTES ABSOLUTE 0.11 10/3/uL (0.0-0.11); LYMPHOCYTES 4.3 %; LYMPHOCYTES ABSOLUTE 0.32 10/3/uL (0.67-4.30); MEAN CORPUS HGB CONC 32.2 g/dL (32.0-36.0); MEAN CORPUSCULAR HEMOGLOB 29.6 pg (26.0-34.0); MEAN CORPUSCULAR VOLUME 91.9 fL (80-100); MONOCYTES 2.8 %; MONOCYTES ABSOLUTE 0.21 10/3/uL (0.21-1.20); NEUTROPHILS 91.3 %; NEUTROPHILS ABSOLUTE 6.85 10/3/uL (2.02-8.40); PLATELET COUNT 89 10/3/uL (150-400); RBC DISTRIBUTION WIDTH 18.8 % (12.0-16.0); WHITE BLOOD CELLS 7.5 10/3/uL (4.5-10.5)
[2017-01-12 04:03] LABS: MANUAL DIFF NO %
[2017-01-12 04:14] LABS: ALBUMIN 3.6 G/DL (3.5-5.0); BUN (BLOOD UREA NITROGEN) 9 MG/DL (6-23); CALCIUM, SERUM 8.1 MG/DL (8.5-10.4); CHLORIDE, SERUM 98 MMOL/L (96-112); CO2 (CARBON DIOXIDE) 27 MMOL/L (24-34); CREATININE 0.67 MG/DL (0.70-1.30); GFR AFRICAN AMERICAN 108 ML/MIN (>=60); GFR NON AFRICAN AMERICAN 93 ML/MIN (>=60); GLUCOSE, SERUM 138 MG/DL (60-99); PHOSPHORUS, SERUM 2.9 MG/DL (2.5-4.5); POTASSIUM, SERUM 4.3 MMOL/L (3.5-5.3); SODIUM, SERUM 138 MMOL/L (135-148)
[2017-01-12 04:15] LABS: BE (BASE EXCESS) 2.8 MEQ/L (0 +/- 2.5); HCO3 (ACTUAL BICARBONATE) 28.8 MEQ/L (23-27); HEMOBLOGIN CONTENT 8.6 G/DL (14-18); INSTRUMENT SERIAL # 11843; METHEMOGLOBIN 0.7 % (0-3); MODE CMV; O2 CONTENT 11.1 VOL% (18-24); OPERATOR ID 16469; PCO2 (CO2 TENSION) 52 MMHG (35-45); PO2 (O2 TENSION) 72 MMHG (79-93); SAMPLE Arterial; TIDAL VOLUME 460 ML; pH 7.36 (7.37-7.43)
[2017-01-12 05:34] LABS: PROCALCITONIN 1.82 ng/mL (<0.5)
[2017-01-12 10:16] LABS: BASOPHILS 0.1 %; BASOPHILS ABSOLUTE 0.01 10/3/uL (0.0-0.16); EOSINOPHILS 0.1 %; EOSINOPHILS ABSOLUTE 0.01 10/3/uL (0.0-0.53); HEMATOCRIT 23.8 % (40.0-51.0); HEMOGLOBIN 7.9 g/dL (13.6-17.8); IMMATURE GRANULOCYTES 1.6 %; IMMATURE GRANULOCYTES ABSOLUTE 0.11 10/3/uL (0.0-0.11); LYMPHOCYTES 8.1 %; LYMPHOCYTES ABSOLUTE 0.57 10/3/uL (0.67-4.30); MANUAL DIFF NO %; MEAN CORPUS HGB CONC 33.2 g/dL (32.0-36.0); MEAN CORPUSCULAR HEMOGLOB 30.5 pg (26.0-34.0); MEAN CORPUSCULAR VOLUME 91.9 fL (80-100); MEAN PLATELET VOLUME 10.2 fL (9.2-13.0); MONOCYTES ABSOLUTE 0.21 10/3/uL (0.21-1.20); NEUTROPHILS 87.1 %; NEUTROPHILS ABSOLUTE 6.15 10/3/uL (2.02-8.40); PLATELET COUNT 90 10/3/uL (150-400); RBC DISTRIBUTION WIDTH 18.2 % (12.0-16.0); RED CELL COUNT 2.59 10/6/uL (4.7-6.1); WHITE BLOOD CELLS 7.1 10/3/uL (4.5-10.5)
[2017-01-12 10:28] LABS: BUN (BLOOD UREA NITROGEN) 10 MG/DL (6-23); CALCIUM, SERUM 8.4 MG/DL (8.5-10.4); CHLORIDE, SERUM 97 MMOL/L (96-112); CO2 (CARBON DIOXIDE) 28 MMOL/L (24-34); CREATININE 0.67 MG/DL (0.70-1.30); GFR AFRICAN AMERICAN 108 ML/MIN (>=60); GFR NON AFRICAN AMERICAN 93 ML/MIN (>=60); GLUCOSE, SERUM 123 MG/DL (60-99); PHOSPHORUS, SERUM 2.1 MG/DL (2.5-4.5); POTASSIUM, SERUM 3.9 MMOL/L (3.5-5.3); SODIUM, SERUM 139 MMOL/L (135-148)
[2017-01-12 16:24] LABS: BASOPHILS 0.1 %; BASOPHILS ABSOLUTE 0.01 10/3/uL (0.0-0.16); EOSINOPHILS 0.1 %; EOSINOPHILS ABSOLUTE 0.01 10/3/uL (0.0-0.53); HEMATOCRIT 22.6 % (40.0-51.0); HEMOGLOBIN 7.5 g/dL (13.6-17.8); IMMATURE GRANULOCYTES 1.3 %; IMMATURE GRANULOCYTES ABSOLUTE 0.11 10/3/uL (0.0-0.11); LYMPHOCYTES 4.7 %; MEAN CORPUS HGB CONC 33.2 g/dL (32.0-36.0); MEAN CORPUSCULAR HEMOGLOB 30.4 pg (26.0-34.0); MEAN CORPUSCULAR VOLUME 91.5 fL (80-100); MEAN PLATELET VOLUME 9.9 fL (9.2-13.0); MONOCYTES 3.8 %; MONOCYTES ABSOLUTE 0.32 10/3/uL (0.21-1.20); NEUTROPHILS ABSOLUTE 7.59 10/3/uL (2.02-8.40); PLATELET COUNT 93 10/3/uL (150-400); RBC DISTRIBUTION WIDTH 18.1 % (12.0-16.0); RED CELL COUNT 2.47 10/6/uL (4.7-6.1); WHITE BLOOD CELLS 8.4 10/3/uL (4.5-10.5)
[2017-01-12 16:27] LABS: MANUAL DIFF NO %
[2017-01-12 16:37] LABS: BUN (BLOOD UREA NITROGEN) 11 MG/DL (6-23); CALCIUM, SERUM 8.2 MG/DL (8.5-10.4); CHLORIDE, SERUM 99 MMOL/L (96-112); CO2 (CARBON DIOXIDE) 26 MMOL/L (24-34); CREATININE 0.69 MG/DL (0.70-1.30); GFR AFRICAN AMERICAN 107 ML/MIN (>=60); GFR NON AFRICAN AMERICAN 92 ML/MIN (>=60); GLUCOSE, SERUM 130 MG/DL (60-99); PHOSPHORUS, SERUM 2.4 MG/DL (2.5-4.5); SODIUM, SERUM 139 MMOL/L (135-148)
[2017-01-12 22:12] LABS: BASOPHILS 0.1 %; BASOPHILS ABSOLUTE 0.01 10/3/uL (0.0-0.16); EOSINOPHILS 0 %; HEMATOCRIT 23.3 % (40.0-51.0); HEMOGLOBIN 7.6 g/dL (13.6-17.8); IMMATURE GRANULOCYTES 1.4 %; IMMATURE GRANULOCYTES ABSOLUTE 0.13 10/3/uL (0.0-0.11); LYMPHOCYTES 6.1 %; LYMPHOCYTES ABSOLUTE 0.58 10/3/uL (0.67-4.30); MEAN CORPUS HGB CONC 32.6 g/dL (32.0-36.0); MEAN CORPUSCULAR HEMOGLOB 29.5 pg (26.0-34.0); MEAN CORPUSCULAR VOLUME 90.3 fL (80-100); MEAN PLATELET VOLUME 9.5 fL (9.2-13.0); MONOCYTES 2.7 %; MONOCYTES ABSOLUTE 0.26 10/3/uL (0.21-1.20); NEUTROPHILS 89.7 %; NEUTROPHILS ABSOLUTE 8.52 10/3/uL (2.02-8.40); PLATELET COUNT 102 10/3/uL (150-400); RBC DISTRIBUTION WIDTH 18.1 % (12.0-16.0); RED CELL COUNT 2.58 10/6/uL (4.7-6.1); WHITE BLOOD CELLS 9.5 10/3/uL (4.5-10.5)
[2017-01-12 22:13] LABS: MANUAL DIFF NO %
[2017-01-12 22:29] LABS: BUN (BLOOD UREA NITROGEN) 11 MG/DL (6-23); CALCIUM, SERUM 8.4 MG/DL (8.5-10.4); CHLORIDE, SERUM 97 MMOL/L (96-112); CO2 (CARBON DIOXIDE) 28 MMOL/L (24-34); CREATININE 0.73 MG/DL (0.70-1.30); GFR AFRICAN AMERICAN 104 ML/MIN (>=60); GFR NON AFRICAN AMERICAN 90 ML/MIN (>=60); GLUCOSE, SERUM 141 MG/DL (60-99); PHOSPHORUS, SERUM 2.2 MG/DL (2.5-4.5); POTASSIUM, SERUM 3.7 MMOL/L (3.5-5.3); SODIUM, SERUM 138 MMOL/L (135-148)
[2017-01-13 03:35] LABS: BE (BASE EXCESS) 1.4 MEQ/L (0 +/- 2.5); CARBOXYHEMOGLOBIN 1.8 % (0-3); HCO3 (ACTUAL BICARBONATE) 27.7 MEQ/L (23-27); HEMOBLOGIN CONTENT 8.2 G/DL (14-18); INSTRUMENT SERIAL # 11843; METHEMOGLOBIN 0.7 % (0-3); MODE CMV; O2 CONTENT 11.3 VOL% (18-24); OPERATOR ID 17370; PCO2 (CO2 TENSION) 54 MMHG (35-45); PO2 (O2 TENSION) 132 MMHG (79-93); SAMPLE Arterial; TIDAL VOLUME 400 ML; pH 7.33 (7.37-7.43)
[2017-01-13 04:08] LABS: BASOPHILS 0.1 %; BASOPHILS ABSOLUTE 0.01 10/3/uL (0.0-0.16); EOSINOPHILS 0 %; HEMATOCRIT 22.7 % (40.0-51.0); HEMOGLOBIN 7.4 g/dL (13.6-17.8); IMMATURE GRANULOCYTES 2.1 %; IMMATURE GRANULOCYTES ABSOLUTE 0.21 10/3/uL (0.0-0.11); LYMPHOCYTES 3.3 %; LYMPHOCYTES ABSOLUTE 0.33 10/3/uL (0.67-4.30); MANUAL DIFF NO %; MEAN CORPUS HGB CONC 32.6 g/dL (32.0-36.0); MEAN CORPUSCULAR HEMOGLOB 30.5 pg (26.0-34.0); MEAN CORPUSCULAR VOLUME 93.4 fL (80-100); NEUTROPHILS 89.5 %; NEUTROPHILS ABSOLUTE 8.99 10/3/uL (2.02-8.40); PLATELET COUNT 107 10/3/uL (150-400); RBC DISTRIBUTION WIDTH 17.9 % (12.0-16.0); RED CELL COUNT 2.43 10/6/uL (4.7-6.1)
[2017-01-13 04:23] LABS: A/G RATIO 0.8 (0.7-1.9); ALBUMIN 3.3 G/DL (3.5-5.0); BUN (BLOOD UREA NITROGEN) 12 MG/DL (6-23); CALCIUM, SERUM 8.4 MG/DL (8.5-10.4); CHLORIDE, SERUM 97 MMOL/L (96-112); CO2 (CARBON DIOXIDE) 28 MMOL/L (24-34); CREATININE 0.73 MG/DL (0.70-1.30); GFR AFRICAN AMERICAN 104 ML/MIN (>=60); GFR NON AFRICAN AMERICAN 90 ML/MIN (>=60); GLOBULIN 3.9 G/DL (2.5-4.1); GLUCOSE, SERUM 139 MG/DL (60-99); POTASSIUM, SERUM 3.8 MMOL/L (3.5-5.3); SGOT(AST) 37 U/L (5-40); SGPT(ALT) 23 U/L (5-65); SODIUM, SERUM 138 MMOL/L (135-148); TOTAL BILIRUBIN 3.4 MG/DL (0-1.2); TOTAL PROTEIN 7.2 G/DL (6.0-8.5)
[2017-01-13 04:32] LABS: ALKALINE PHOSPHATASE 110 U/L (45-117); PHOSPHORUS, SERUM 3.4 MG/DL (2.5-4.5)
[2017-01-13 10:15] LABS: BASOPHILS 0.1 %; BASOPHILS ABSOLUTE 0.01 10/3/uL (0.0-0.16); EOSINOPHILS 0 %; HEMATOCRIT 23.1 % (40.0-51.0); HEMOGLOBIN 7.4 g/dL (13.6-17.8); IMMATURE GRANULOCYTES 1.9 %; IMMATURE GRANULOCYTES ABSOLUTE 0.16 10/3/uL (0.0-0.11); LYMPHOCYTES ABSOLUTE 0.34 10/3/uL (0.67-4.30); MEAN CORPUSCULAR HEMOGLOB 29.5 pg (26.0-34.0); MEAN PLATELET VOLUME 9.5 fL (9.2-13.0); MONOCYTES 4.8 %; MONOCYTES ABSOLUTE 0.41 10/3/uL (0.21-1.20); NEUTROPHILS 89.2 %; NEUTROPHILS ABSOLUTE 7.63 10/3/uL (2.02-8.40); PLATELET COUNT 109 10/3/uL (150-400); RBC DISTRIBUTION WIDTH 17.8 % (12.0-16.0); RED CELL COUNT 2.51 10/6/uL (4.7-6.1); WHITE BLOOD CELLS 8.6 10/3/uL (4.5-10.5)
[2017-01-13 10:18] LABS: MANUAL DIFF NO %
[2017-01-13 10:28] LABS: BUN (BLOOD UREA NITROGEN) 12 MG/DL (6-23); CALCIUM, SERUM 8.4 MG/DL (8.5-10.4); CHLORIDE, SERUM 97 MMOL/L (96-112); CO2 (CARBON DIOXIDE) 27 MMOL/L (24-34); CREATININE 0.68 MG/DL (0.70-1.30); GFR AFRICAN AMERICAN 108 ML/MIN (>=60); GFR NON AFRICAN AMERICAN 93 ML/MIN (>=60); GLUCOSE, SERUM 138 MG/DL (60-99); PHOSPHORUS, SERUM 2.4 MG/DL (2.5-4.5); SODIUM, SERUM 138 MMOL/L (135-148)
[2017-01-13 15:53] LABS: BASOPHILS 0.1 %; BASOPHILS ABSOLUTE 0.01 10/3/uL (0.0-0.16); EOSINOPHILS 0 %; HEMOGLOBIN 7.3 g/dL (13.6-17.8); IMMATURE GRANULOCYTES 1.8 %; IMMATURE GRANULOCYTES ABSOLUTE 0.16 10/3/uL (0.0-0.11); LYMPHOCYTES 5.4 %; LYMPHOCYTES ABSOLUTE 0.47 10/3/uL (0.67-4.30); MEAN CORPUS HGB CONC 31.7 g/dL (32.0-36.0); MEAN CORPUSCULAR HEMOGLOB 29.3 pg (26.0-34.0); MEAN CORPUSCULAR VOLUME 92.4 fL (80-100); MEAN PLATELET VOLUME 9.6 fL (9.2-13.0); MONOCYTES 5.2 %; MONOCYTES ABSOLUTE 0.46 10/3/uL (0.21-1.20); NEUTROPHILS 87.5 %; NEUTROPHILS ABSOLUTE 7.67 10/3/uL (2.02-8.40); PLATELET COUNT 102 10/3/uL (150-400); RBC DISTRIBUTION WIDTH 17.9 % (12.0-16.0); RED CELL COUNT 2.49 10/6/uL (4.7-6.1); WHITE BLOOD CELLS 8.8 10/3/uL (4.5-10.5)
[2017-01-13 15:54] LABS: MANUAL DIFF NO %
[2017-01-13 16:11] LABS: CALCIUM, SERUM 8.3 MG/DL (8.5-10.4); CHLORIDE, SERUM 97 MMOL/L (96-112); CO2 (CARBON DIOXIDE) 26 MMOL/L (24-34); GFR AFRICAN AMERICAN 106 ML/MIN (>=60); GFR NON AFRICAN AMERICAN 92 ML/MIN (>=60); GLUCOSE, SERUM 123 MG/DL (60-99); PHOSPHORUS, SERUM 2.7 MG/DL (2.5-4.5); POTASSIUM, SERUM 3.7 MMOL/L (3.5-5.3); SODIUM, SERUM 139 MMOL/L (135-148)
[2017-01-13 16:12] LABS: BUN (BLOOD UREA NITROGEN) 16 MG/DL (6-23)
[2017-01-13 22:58] LABS: BASOPHILS 0.2 %; BASOPHILS ABSOLUTE 0.02 10/3/uL (0.0-0.16); EOSINOPHILS 0.4 %; EOSINOPHILS ABSOLUTE 0.04 10/3/uL (0.0-0.53); HEMATOCRIT 23.4 % (40.0-51.0); HEMOGLOBIN 7.4 g/dL (13.6-17.8); LYMPHOCYTES 5.1 %; MEAN CORPUS HGB CONC 31.6 g/dL (32.0-36.0); MEAN CORPUSCULAR HEMOGLOB 29.2 pg (26.0-34.0); MEAN CORPUSCULAR VOLUME 92.5 fL (80-100); MEAN PLATELET VOLUME 9.7 fL (9.2-13.0); MONOCYTES 7.5 %; MONOCYTES ABSOLUTE 0.74 10/3/uL (0.21-1.20); NEUTROPHILS 83.8 %; NEUTROPHILS ABSOLUTE 8.28 10/3/uL (2.02-8.40); PLATELET COUNT 125 10/3/uL (150-400); RBC DISTRIBUTION WIDTH 17.7 % (12.0-16.0); RED CELL COUNT 2.53 10/6/uL (4.7-6.1); WHITE BLOOD CELLS 9.9 10/3/uL (4.5-10.5)
[2017-01-13 23:01] LABS: MANUAL DIFF NO %
[2017-01-13 23:15] LABS: A/G RATIO 0.8 (0.7-1.9); ALBUMIN 3.3 G/DL (3.5-5.0); ALKALINE PHOSPHATASE 131 U/L (45-117); BUN (BLOOD UREA NITROGEN) 19 MG/DL (6-23); CALCIUM, SERUM 8.4 MG/DL (8.5-10.4); CHLORIDE, SERUM 97 MMOL/L (96-112); CO2 (CARBON DIOXIDE) 27 MMOL/L (24-34); CREATININE 0.72 MG/DL (0.70-1.30); GFR AFRICAN AMERICAN 105 ML/MIN (>=60); GFR NON AFRICAN AMERICAN 91 ML/MIN (>=60); GLOBULIN 4.3 G/DL (2.5-4.1); GLUCOSE, SERUM 144 MG/DL (60-99); POTASSIUM, SERUM 3.4 MMOL/L (3.5-5.3); SGOT(AST) 52 U/L (5-40); SGPT(ALT) 10 U/L (5-65); SODIUM, SERUM 138 MMOL/L (135-148); TOTAL BILIRUBIN 3.5 MG/DL (0-1.2); TOTAL PROTEIN 7.6 G/DL (6.0-8.5)
[2017-01-14 03:26] LABS: BE (BASE EXCESS) 2.7 MEQ/L (0 +/- 2.5); CARBOXYHEMOGLOBIN 1.3 % (0-3); HCO3 (ACTUAL BICARBONATE) 27.6 MEQ/L (23-27); HEMOBLOGIN CONTENT 8.8 G/DL (14-18); INSTRUMENT SERIAL # 11843; METHEMOGLOBIN 0.6 % (0-3); MODE CMV; O2 CONTENT 12.2 VOL% (18-24); OPERATOR ID 17370; PCO2 (CO2 TENSION) 44 MMHG (35-45); PO2 (O2 TENSION) 140 MMHG (79-93); SAMPLE Arterial; TIDAL VOLUME 460 ML; pH 7.41 (7.37-7.43)
[2017-01-14 04:26] LABS: BASOPHILS 0.2 %; BASOPHILS ABSOLUTE 0.02 10/3/uL (0.0-0.16); EOSINOPHILS 0.2 %; EOSINOPHILS ABSOLUTE 0.02 10/3/uL (0.0-0.53); HEMATOCRIT 23.8 % (40.0-51.0); HEMOGLOBIN 7.7 g/dL (13.6-17.8); IMMATURE GRANULOCYTES 3.4 %; IMMATURE GRANULOCYTES ABSOLUTE 0.33 10/3/uL (0.0-0.11); LYMPHOCYTES 4.4 %; LYMPHOCYTES ABSOLUTE 0.43 10/3/uL (0.67-4.30); MEAN CORPUS HGB CONC 32.4 g/dL (32.0-36.0); MEAN CORPUSCULAR HEMOGLOB 30.4 pg (26.0-34.0); MEAN CORPUSCULAR VOLUME 94.1 fL (80-100); MEAN PLATELET VOLUME 9.8 fL (9.2-13.0); MONOCYTES 6.6 %; MONOCYTES ABSOLUTE 0.64 10/3/uL (0.21-1.20); NEUTROPHILS 85.2 %; NEUTROPHILS ABSOLUTE 8.28 10/3/uL (2.02-8.40); PLATELET COUNT 119 10/3/uL (150-400); RBC DISTRIBUTION WIDTH 17.5 % (12.0-16.0); RED CELL COUNT 2.53 10/6/uL (4.7-6.1); WHITE BLOOD CELLS 9.7 10/3/uL (4.5-10.5)
[2017-01-14 04:27] LABS: MANUAL DIFF NO %
[2017-01-14 04:44] LABS: A/G RATIO 0.8 (0.7-1.9); ALBUMIN 3.4 G/DL (3.5-5.0); ALKALINE PHOSPHATASE 133 U/L (45-117); BUN (BLOOD UREA NITROGEN) 16 MG/DL (6-23); CALCIUM, SERUM 8.4 MG/DL (8.5-10.4); CHLORIDE, SERUM 97 MMOL/L (96-112); CO2 (CARBON DIOXIDE) 28 MMOL/L (24-34); CREATININE 0.73 MG/DL (0.70-1.30); GFR AFRICAN AMERICAN 104 ML/MIN (>=60); GFR NON AFRICAN AMERICAN 90 ML/MIN (>=60); GLOBULIN 4.4 G/DL (2.5-4.1); GLUCOSE, SERUM 157 MG/DL (60-99); POTASSIUM, SERUM 3.8 MMOL/L (3.5-5.3); SGOT(AST) 48 U/L (5-40); SGPT(ALT) 10 U/L (5-65); SODIUM, SERUM 138 MMOL/L (135-148); TOTAL BILIRUBIN 3.5 MG/DL (0-1.2); TOTAL PROTEIN 7.8 G/DL (6.0-8.5)
[2017-01-14 10:09] LABS: BASOPHILS 0.1 %; BASOPHILS ABSOLUTE 0.01 10/3/uL (0.0-0.16); EOSINOPHILS 1.1 %; EOSINOPHILS ABSOLUTE 0.11 10/3/uL (0.0-0.53); HEMATOCRIT 23.7 % (40.0-51.0); HEMOGLOBIN 7.6 g/dL (13.6-17.8); IMMATURE GRANULOCYTES 2.4 %; IMMATURE GRANULOCYTES ABSOLUTE 0.24 10/3/uL (0.0-0.11); LYMPHOCYTES 5.5 %; LYMPHOCYTES ABSOLUTE 0.54 10/3/uL (0.67-4.30); MEAN CORPUS HGB CONC 32.1 g/dL (32.0-36.0); MEAN CORPUSCULAR HEMOGLOB 29.7 pg (26.0-34.0); MEAN CORPUSCULAR VOLUME 92.6 fL (80-100); MEAN PLATELET VOLUME 9.4 fL (9.2-13.0); MONOCYTES ABSOLUTE 0.69 10/3/uL (0.21-1.20); NEUTROPHILS 83.9 %; NEUTROPHILS ABSOLUTE 8.25 10/3/uL (2.02-8.40); PLATELET COUNT 123 10/3/uL (150-400); RBC DISTRIBUTION WIDTH 17.8 % (12.0-16.0); RED CELL COUNT 2.56 10/6/uL (4.7-6.1); WHITE BLOOD CELLS 9.8 10/3/uL (4.5-10.5)
[2017-01-14 10:10] LABS: MANUAL DIFF NO %
[2017-01-14 10:30] LABS: A/G RATIO 0.7 (0.7-1.9); ALBUMIN 3.2 G/DL (3.5-5.0); ALKALINE PHOSPHATASE 132 U/L (45-117); BUN (BLOOD UREA NITROGEN) 16 MG/DL (6-23); CALCIUM, SERUM 8.5 MG/DL (8.5-10.4); CHLORIDE, SERUM 97 MMOL/L (96-112); CO2 (CARBON DIOXIDE) 28 MMOL/L (24-34); GFR AFRICAN AMERICAN 106 ML/MIN (>=60); GFR NON AFRICAN AMERICAN 92 ML/MIN (>=60); GLOBULIN 4.4 G/DL (2.5-4.1); GLUCOSE, SERUM 131 MG/DL (60-99); POTASSIUM, SERUM 3.7 MMOL/L (3.5-5.3); SGOT(AST) 48 U/L (5-40); SGPT(ALT) 14 U/L (5-65); SODIUM, SERUM 138 MMOL/L (135-148); TOTAL BILIRUBIN 3.6 MG/DL (0-1.2); TOTAL PROTEIN 7.6 G/DL (6.0-8.5)
[2017-01-14 11:21] LABS: PHOSPHORUS, SERUM 1.3 MG/DL (2.5-4.5)
[2017-01-14 16:16] LABS: INTERNATIONAL NORMAL RATI 1.3 UNITS (-); PROTIME (NOT ORD) 15.9 SEC (12.0-14.5)
[2017-01-14 18:02] LABS: HEMATOCRIT 24.1 % (40.0-51.0); HEMOGLOBIN 7.7 g/dL (13.6-17.8)
[2017-01-14 18:18] LABS: BUN (BLOOD UREA NITROGEN) 16 MG/DL (6-23); CALCIUM, SERUM 8.3 MG/DL (8.5-10.4); CHLORIDE, SERUM 98 MMOL/L (96-112); CO2 (CARBON DIOXIDE) 27 MMOL/L (24-34); CREATININE 0.72 MG/DL (0.70-1.30); GFR AFRICAN AMERICAN 105 ML/MIN (>=60); GFR NON AFRICAN AMERICAN 91 ML/MIN (>=60); GLUCOSE, SERUM 139 MG/DL (60-99); PHOSPHORUS, SERUM 3.8 MG/DL (2.5-4.5); SODIUM, SERUM 137 MMOL/L (135-148)
[2017-01-14 22:15] LABS: BASOPHILS 0.2 %; BASOPHILS ABSOLUTE 0.02 10/3/uL (0.0-0.16); EOSINOPHILS 1.1 %; HEMATOCRIT 23.6 % (40.0-51.0); HEMOGLOBIN 7.3 g/dL (13.6-17.8); IMMATURE GRANULOCYTES 3.1 %; IMMATURE GRANULOCYTES ABSOLUTE 0.29 10/3/uL (0.0-0.11); LYMPHOCYTES 5.7 %; LYMPHOCYTES ABSOLUTE 0.53 10/3/uL (0.67-4.30); MANUAL DIFF NO %; MEAN CORPUS HGB CONC 30.9 g/dL (32.0-36.0); MEAN CORPUSCULAR HEMOGLOB 28.9 pg (26.0-34.0); MEAN CORPUSCULAR VOLUME 93.3 fL (80-100); MEAN PLATELET VOLUME 9.2 fL (9.2-13.0); MONOCYTES ABSOLUTE 0.47 10/3/uL (0.21-1.20); NEUTROPHILS 84.9 %; PLATELET COUNT 116 10/3/uL (150-400); RBC DISTRIBUTION WIDTH 17.9 % (12.0-16.0); RED CELL COUNT 2.53 10/6/uL (4.7-6.1); WHITE BLOOD CELLS 9.3 10/3/uL (4.5-10.5)
[2017-01-14 22:32] LABS: A/G RATIO 0.7 (0.7-1.9); ALKALINE PHOSPHATASE 134 U/L (45-117); BUN (BLOOD UREA NITROGEN) 16 MG/DL (6-23); CALCIUM, SERUM 8.4 MG/DL (8.5-10.4); CHLORIDE, SERUM 97 MMOL/L (96-112); CO2 (CARBON DIOXIDE) 28 MMOL/L (24-34); CREATININE 0.63 MG/DL (0.70-1.30); GFR AFRICAN AMERICAN 111 ML/MIN (>=60); GFR NON AFRICAN AMERICAN 96 ML/MIN (>=60); GLOBULIN 4.5 G/DL (2.5-4.1); GLUCOSE, SERUM 131 MG/DL (60-99); POTASSIUM, SERUM 3.5 MMOL/L (3.5-5.3); SGOT(AST) 45 U/L (5-40); SGPT(ALT) 10 U/L (5-65); SODIUM, SERUM 139 MMOL/L (135-148); TOTAL PROTEIN 7.5 G/DL (6.0-8.5)
[2017-01-14 22:35] LABS: TOTAL BILIRUBIN 2.9 MG/DL (0-1.2)
[2017-01-15 06:11] LABS: A/G RATIO 0.7 (0.7-1.9); ALBUMIN 2.9 G/DL (3.5-5.0); BUN (BLOOD UREA NITROGEN) 14 MG/DL (6-23); CALCIUM, SERUM 8.4 MG/DL (8.5-10.4); CHLORIDE, SERUM 99 MMOL/L (96-112); CO2 (CARBON DIOXIDE) 28 MMOL/L (24-34); CREATININE 0.57 MG/DL (0.70-1.30); GFR AFRICAN AMERICAN 116 ML/MIN (>=60); GFR NON AFRICAN AMERICAN 100 ML/MIN (>=60); GLOBULIN 4.2 G/DL (2.5-4.1); GLUCOSE, SERUM 112 MG/DL (60-99); POTASSIUM, SERUM 3.8 MMOL/L (3.5-5.3); SGOT(AST) 39 U/L (5-40); SGPT(ALT) 11 U/L (5-65); SODIUM, SERUM 139 MMOL/L (135-148); TOTAL PROTEIN 7.1 G/DL (6.0-8.5)
[2017-01-15 06:12] LABS: ALKALINE PHOSPHATASE 117 U/L (45-117); TOTAL BILIRUBIN 2.4 MG/DL (0-1.2)
[2017-01-15 06:24] LABS: HEMATOCRIT 22.6 % (40.0-51.0); HEMOGLOBIN 7.4 g/dL (13.6-17.8); MEAN CORPUS HGB CONC 32.7 g/dL (32.0-36.0); MEAN CORPUSCULAR HEMOGLOB 30.7 pg (26.0-34.0); MEAN CORPUSCULAR VOLUME 93.8 fL (80-100); MEAN PLATELET VOLUME 9.5 fL (9.2-13.0); PLATELET COUNT 101 10/3/uL (150-400); RBC DISTRIBUTION WIDTH 17.7 % (12.0-16.0); RED CELL COUNT 2.41 10/6/uL (4.7-6.1); WHITE BLOOD CELLS 6.1 10/3/uL (4.5-10.5)
[2017-01-15 06:25] LABS: MANUAL DIFF YES %
[2017-01-15 06:29] LABS: ANISOCYTOSIS 1+ (5-10/OIF) (0-5/OIF); LYMPHOCYTES 10 %; LYMPHOCYTES ABSOLUTE (CALC) 0.61 10/3/uL (0.67-4.30); MONOCYTES 6 %; MONOCYTES ABSOLUTE (CALC) 0.37 10/3/uL (0.21-1.20); NEUTROPHILS ABSOLUTE (CALC) 5.12 10/3/uL (2.02-8.40); PLATELET ESTIMATE SLT DEC (ADEQUATE); SEGMENTED NEUTROPHIL (0) 84 %; TOTAL NUCLEATED CELLS 100
[2017-01-15 08:15] LABS: INTERNATIONAL NORMAL RATI 1.3 UNITS (-); PROTIME (NOT ORD) 16.2 SEC (12.0-14.5)
[2017-01-15 10:45] LABS: HEMATOCRIT 22.8 % (40.0-51.0); HEMOGLOBIN 7.4 g/dL (13.6-17.8)
[2017-01-15 11:05] LABS: BUN (BLOOD UREA NITROGEN) 15 MG/DL (6-23); CALCIUM, SERUM 7.8 MG/DL (8.5-10.4); CHLORIDE, SERUM 99 MMOL/L (96-112); CO2 (CARBON DIOXIDE) 28 MMOL/L (24-34); CREATININE 0.65 MG/DL (0.70-1.30); GFR AFRICAN AMERICAN 110 ML/MIN (>=60); GFR NON AFRICAN AMERICAN 95 ML/MIN (>=60); POTASSIUM, SERUM 3.8 MMOL/L (3.5-5.3); SODIUM, SERUM 137 MMOL/L (135-148)
[2017-01-15 11:10] LABS: GLUCOSE, SERUM 136 MG/DL (60-99); PHOSPHORUS, SERUM 1.4 MG/DL (2.5-4.5)
[2017-01-15 16:48] LABS: HEMATOCRIT 22.1 % (40.0-51.0); HEMOGLOBIN 7.2 g/dL (13.6-17.8)
[2017-01-15 17:00] LABS: BUN (BLOOD UREA NITROGEN) 14 MG/DL (6-23); CALCIUM, SERUM 7.8 MG/DL (8.5-10.4); CHLORIDE, SERUM 98 MMOL/L (96-112); CO2 (CARBON DIOXIDE) 27 MMOL/L (24-34); CREATININE 0.54 MG/DL (0.70-1.30); GFR AFRICAN AMERICAN 118 ML/MIN (>=60); GFR NON AFRICAN AMERICAN 102 ML/MIN (>=60); GLUCOSE, SERUM 118 MG/DL (60-99); POTASSIUM, SERUM 3.7 MMOL/L (3.5-5.3); SODIUM, SERUM 139 MMOL/L (135-148)
[2017-01-15 17:01] LABS: PHOSPHORUS, SERUM 3.4 MG/DL (2.5-4.5)
[2017-01-15 22:23] LABS: HEMATOCRIT 21.9 % (40.0-51.0); HEMOGLOBIN 7.1 g/dL (13.6-17.8)
[2017-01-15 22:33] LABS: BUN (BLOOD UREA NITROGEN) 14 MG/DL (6-23); CALCIUM, SERUM 7.8 MG/DL (8.5-10.4); CHLORIDE, SERUM 99 MMOL/L (96-112); CO2 (CARBON DIOXIDE) 29 MMOL/L (24-34); CREATININE 0.48 MG/DL (0.70-1.30); GFR AFRICAN AMERICAN 124 ML/MIN (>=60); GFR NON AFRICAN AMERICAN 107 ML/MIN (>=60); GLUCOSE, SERUM 106 MG/DL (60-99); PHOSPHORUS, SERUM 2.6 MG/DL (2.5-4.5); POTASSIUM, SERUM 3.5 MMOL/L (3.5-5.3); SODIUM, SERUM 139 MMOL/L (135-148)
[2017-01-16 01:52] LABS: BUN (BLOOD UREA NITROGEN) 14 MG/DL (6-23); CALCIUM, SERUM 7.9 MG/DL (8.5-10.4); CHLORIDE, SERUM 98 MMOL/L (96-112); CO2 (CARBON DIOXIDE) 29 MMOL/L (24-34); CREATININE 0.57 MG/DL (0.70-1.30); GFR AFRICAN AMERICAN 116 ML/MIN (>=60); GFR NON AFRICAN AMERICAN 100 ML/MIN (>=60); GLUCOSE, SERUM 156 MG/DL (60-99); PHOSPHORUS, SERUM 3.1 MG/DL (2.5-4.5); POTASSIUM, SERUM 3.8 MMOL/L (3.5-5.3); SODIUM, SERUM 139 MMOL/L (135-148)
[2017-01-16 04:09] LABS: INTERNATIONAL NORMAL RATI 1.5 UNITS (-)
[2017-01-16 04:13] LABS: BASOPHILS 0 %; EOSINOPHILS 0.3 %; EOSINOPHILS ABSOLUTE 0.02 10/3/uL (0.0-0.53); HEMOGLOBIN 6.5 g/dL (13.6-17.8); IMMATURE GRANULOCYTES 2.1 %; IMMATURE GRANULOCYTES ABSOLUTE 0.15 10/3/uL (0.0-0.11); LYMPHOCYTES 3.6 %; LYMPHOCYTES ABSOLUTE 0.25 10/3/uL (0.67-4.30); MEAN CORPUS HGB CONC 31.6 g/dL (32.0-36.0); MEAN CORPUSCULAR HEMOGLOB 29.5 pg (26.0-34.0); MEAN CORPUSCULAR VOLUME 93.6 fL (80-100); MEAN PLATELET VOLUME 10.4 fL (9.2-13.0); MONOCYTES 4.4 %; MONOCYTES ABSOLUTE 0.31 10/3/uL (0.21-1.20); NEUTROPHILS 89.6 %; NEUTROPHILS ABSOLUTE 6.28 10/3/uL (2.02-8.40); PLATELET COUNT 87 10/3/uL (150-400); RBC DISTRIBUTION WIDTH 18.2 % (12.0-16.0)
[2017-01-16 04:14] LABS: HEMATOCRIT 20.6 % (40.0-51.0); MANUAL DIFF NO %
[2017-01-16 04:24] LABS: BUN (BLOOD UREA NITROGEN) 15 MG/DL (6-23); CALCIUM, SERUM 7.7 MG/DL (8.5-10.4); CHLORIDE, SERUM 99 MMOL/L (96-112); CO2 (CARBON DIOXIDE) 27 MMOL/L (24-34); CREATININE 0.51 MG/DL (0.70-1.30); GFR AFRICAN AMERICAN 121 ML/MIN (>=60); GFR NON AFRICAN AMERICAN 104 ML/MIN (>=60); GLUCOSE, SERUM 140 MG/DL (60-99); PHOSPHORUS, SERUM 2.5 MG/DL (2.5-4.5); POTASSIUM, SERUM 4.1 MMOL/L (3.5-5.3); SODIUM, SERUM 139 MMOL/L (135-148)
[2017-01-16 09:59] LABS: HEMATOCRIT 25.2 % (40.0-51.0); HEMOGLOBIN 8.2 g/dL (13.6-17.8); MEAN CORPUS HGB CONC 32.5 g/dL (32.0-36.0); MEAN CORPUSCULAR HEMOGLOB 29.3 pg (26.0-34.0); MEAN PLATELET VOLUME 10.5 fL (9.2-13.0); PLATELET COUNT 107 10/3/uL (150-400); RBC DISTRIBUTION WIDTH 17.3 % (12.0-16.0); WHITE BLOOD CELLS 8.5 10/3/uL (4.5-10.5)
[2017-01-16 10:00] LABS: MANUAL DIFF YES %
[2017-01-16 10:21] LABS: BUN (BLOOD UREA NITROGEN) 15 MG/DL (6-23); CHLORIDE, SERUM 99 MMOL/L (96-112); CO2 (CARBON DIOXIDE) 27 MMOL/L (24-34); CREATININE 0.58 MG/DL (0.70-1.30); GFR AFRICAN AMERICAN 115 ML/MIN (>=60); GFR NON AFRICAN AMERICAN 99 ML/MIN (>=60); GLUCOSE, SERUM 117 MG/DL (60-99); PHOSPHORUS, SERUM 1.9 MG/DL (2.5-4.5); POTASSIUM, SERUM 3.7 MMOL/L (3.5-5.3); SODIUM, SERUM 138 MMOL/L (135-148)
[2017-01-16 10:38] LABS: ANISOCYTOSIS 1+ (5-10/OIF) (0-5/OIF); BAND NEUTROPHILS 4 %; EOSINOPHILS 1 %; EOSINOPHILS ABSOLUTE (CALC) 0.09 10/3/uL (0.0-0.53); LYMPHOCYTES 3 %; LYMPHOCYTES ABSOLUTE (CALC) 0.26 10/3/uL (0.67-4.30); MONOCYTES 3 %; MONOCYTES ABSOLUTE (CALC) 0.26 10/3/uL (0.21-1.20); NEUTROPHILS ABSOLUTE (CALC) 7.91 10/3/uL (2.02-8.40); PLATELET ESTIMATE SLT DEC (ADEQUATE); SEGMENTED NEUTROPHIL (0) 89 %; TOTAL NUCLEATED CELLS 100
[2017-01-16 16:17] LABS: HEMATOCRIT 26.6 % (40.0-51.0); HEMOGLOBIN 8.6 g/dL (13.6-17.8); PLATELET COUNT 86 10/3/uL (150-400)
[2017-01-16 16:32] LABS: A/G RATIO 0.7 (0.7-1.9); ALBUMIN 2.8 G/DL (3.5-5.0); ALKALINE PHOSPHATASE 126 U/L (45-117); BUN (BLOOD UREA NITROGEN) 15 MG/DL (6-23); CALCIUM, SERUM 8.1 MG/DL (8.5-10.4); CHLORIDE, SERUM 100 MMOL/L (96-112); CO2 (CARBON DIOXIDE) 29 MMOL/L (24-34); CREATININE 0.61 MG/DL (0.70-1.30); GFR AFRICAN AMERICAN 112 ML/MIN (>=60); GFR NON AFRICAN AMERICAN 97 ML/MIN (>=60); GLOBULIN 3.9 G/DL (2.5-4.1); GLUCOSE, SERUM 137 MG/DL (60-99); POTASSIUM, SERUM 3.6 MMOL/L (3.5-5.3); SGOT(AST) 70 U/L (5-40); SGPT(ALT) 14 U/L (5-65); SODIUM, SERUM 140 MMOL/L (135-148); TOTAL PROTEIN 6.7 G/DL (6.0-8.5)
[2017-01-16 16:33] LABS: PHOSPHORUS, SERUM 4.5 MG/DL (2.5-4.5); TOTAL BILIRUBIN 3.1 MG/DL (0-1.2)
[2017-01-16 22:54] LABS: HEMATOCRIT 24.9 % (40.0-51.0); HEMOGLOBIN 8.5 g/dL (13.6-17.8); PLATELET COUNT 87 10/3/uL (150-400)
[2017-01-16 23:15] LABS: ALBUMIN 2.7 G/DL (3.5-5.0); BUN (BLOOD UREA NITROGEN) 16 MG/DL (6-23); CHLORIDE, SERUM 101 MMOL/L (96-112); CO2 (CARBON DIOXIDE) 30 MMOL/L (24-34); CREATININE 0.58 MG/DL (0.70-1.30); GFR AFRICAN AMERICAN 115 ML/MIN (>=60); GFR NON AFRICAN AMERICAN 99 ML/MIN (>=60); GLUCOSE, SERUM 121 MG/DL (60-99); PHOSPHORUS, SERUM 1.9 MG/DL (2.5-4.5); POTASSIUM, SERUM 3.5 MMOL/L (3.5-5.3); SODIUM, SERUM 140 MMOL/L (135-148)
[2017-01-17 03:41] LABS: HEMATOCRIT 26.1 % (40.0-51.0); HEMOGLOBIN 8.5 g/dL (13.6-17.8); MEAN CORPUS HGB CONC 32.6 g/dL (32.0-36.0); MEAN CORPUSCULAR HEMOGLOB 30.1 pg (26.0-34.0); MEAN CORPUSCULAR VOLUME 92.6 fL (80-100); MEAN PLATELET VOLUME 10.4 fL (9.2-13.0); PLATELET COUNT 86 10/3/uL (150-400); RED CELL COUNT 2.82 10/6/uL (4.7-6.1); WHITE BLOOD CELLS 10.7 10/3/uL (4.5-10.5)
[2017-01-17 03:42] LABS: MANUAL DIFF YES %
[2017-01-17 04:01] LABS: BUN (BLOOD UREA NITROGEN) 15 MG/DL (6-23); CALCIUM, SERUM 8.2 MG/DL (8.5-10.4); CHLORIDE, SERUM 100 MMOL/L (96-112); CO2 (CARBON DIOXIDE) 28 MMOL/L (24-34); GFR AFRICAN AMERICAN 113 ML/MIN (>=60); GFR NON AFRICAN AMERICAN 98 ML/MIN (>=60); SODIUM, SERUM 141 MMOL/L (135-148)
[2017-01-17 04:03] LABS: GLUCOSE, SERUM 161 MG/DL (60-99)
[2017-01-17 04:12] LABS: INTERNATIONAL NORMAL RATI 1.7 UNITS (-); PROTIME (NOT ORD) 19.6 SEC (12.0-14.5)
[2017-01-17 04:34] LABS: ANISOCYTOSIS 1+ (5-10/OIF) (0-5/OIF); BAND NEUTROPHILS 19 %; IMMATURE GRANS ABSOLUTE (CALC) 0.54 10/3/uL (0.0-0.11); LYMPHOCYTES 2 %; LYMPHOCYTES ABSOLUTE (CALC) 0.21 10/3/uL (0.67-4.30); METAMYELOCYTES 5 %; NEUTROPHILS ABSOLUTE (CALC) 9.95 10/3/uL (2.02-8.40); PLATELET ESTIMATE DEC (ADEQUATE); SEGMENTED NEUTROPHIL (0) 74 %; TOTAL NUCLEATED CELLS 100
[2017-01-17 04:35] LABS: POLYCHROMASIA 1+ (2-5/OIF) (0-1/OIF)
[2017-01-17 12:24] LABS: BASOPHILS 0.3 %; BASOPHILS ABSOLUTE 0.03 10/3/uL (0.0-0.16); EOSINOPHILS 0.8 %; EOSINOPHILS ABSOLUTE 0.09 10/3/uL (0.0-0.53); HEMATOCRIT 26.3 % (40.0-51.0); HEMOGLOBIN 8.5 g/dL (13.6-17.8); IMMATURE GRANULOCYTES ABSOLUTE 0.22 10/3/uL (0.0-0.11); LYMPHOCYTES 7.2 %; MEAN CORPUS HGB CONC 32.3 g/dL (32.0-36.0); MEAN CORPUSCULAR VOLUME 92.9 fL (80-100); MEAN PLATELET VOLUME 11.4 fL (9.2-13.0); MONOCYTES 1.6 %; MONOCYTES ABSOLUTE 0.18 10/3/uL (0.21-1.20); NEUTROPHILS 88.1 %; NEUTROPHILS ABSOLUTE 9.84 10/3/uL (2.02-8.40); PLATELET COUNT 95 10/3/uL (150-400); RBC DISTRIBUTION WIDTH 18.2 % (12.0-16.0); RED CELL COUNT 2.83 10/6/uL (4.7-6.1); WHITE BLOOD CELLS 11.2 10/3/uL (4.5-10.5)
[2017-01-17 12:26] LABS: MANUAL DIFF NO %
[2017-01-17 12:38] LABS: BUN (BLOOD UREA NITROGEN) 15 MG/DL (6-23); CALCIUM, SERUM 8.3 MG/DL (8.5-10.4); CHLORIDE, SERUM 99 MMOL/L (96-112); CO2 (CARBON DIOXIDE) 27 MMOL/L (24-34); GFR AFRICAN AMERICAN 113 ML/MIN (>=60); GFR NON AFRICAN AMERICAN 98 ML/MIN (>=60); POTASSIUM, SERUM 3.5 MMOL/L (3.5-5.3); SODIUM, SERUM 140 MMOL/L (135-148)
[2017-01-17 12:39] LABS: GLUCOSE, SERUM 102 MG/DL (60-99)
[2017-01-17 16:18] LABS: BASOPHILS 0.2 %; BASOPHILS ABSOLUTE 0.02 10/3/uL (0.0-0.16); EOSINOPHILS 0.3 %; EOSINOPHILS ABSOLUTE 0.03 10/3/uL (0.0-0.53); HEMATOCRIT 24.9 % (40.0-51.0); HEMOGLOBIN 8.3 g/dL (13.6-17.8); IMMATURE GRANULOCYTES 3.4 %; IMMATURE GRANULOCYTES ABSOLUTE 0.39 10/3/uL (0.0-0.11); LYMPHOCYTES 5.3 %; LYMPHOCYTES ABSOLUTE 0.61 10/3/uL (0.67-4.30); MEAN CORPUS HGB CONC 33.3 g/dL (32.0-36.0); MEAN CORPUSCULAR HEMOGLOB 31.1 pg (26.0-34.0); MEAN CORPUSCULAR VOLUME 93.3 fL (80-100); MEAN PLATELET VOLUME 10.3 fL (9.2-13.0); MONOCYTES 2.4 %; MONOCYTES ABSOLUTE 0.28 10/3/uL (0.21-1.20); NEUTROPHILS 88.4 %; NEUTROPHILS ABSOLUTE 10.22 10/3/uL (2.02-8.40); PLATELET COUNT 82 10/3/uL (150-400); RBC DISTRIBUTION WIDTH 18.2 % (12.0-16.0); RED CELL COUNT 2.67 10/6/uL (4.7-6.1); WHITE BLOOD CELLS 11.6 10/3/uL (4.5-10.5)
[2017-01-17 16:20] LABS: MANUAL DIFF NO %
[2017-01-17 16:32] LABS: BUN (BLOOD UREA NITROGEN) 17 MG/DL (6-23); CHLORIDE, SERUM 100 MMOL/L (96-112); CO2 (CARBON DIOXIDE) 28 MMOL/L (24-34); CREATININE 0.63 MG/DL (0.70-1.30); GFR AFRICAN AMERICAN 111 ML/MIN (>=60); GFR NON AFRICAN AMERICAN 96 ML/MIN (>=60); POTASSIUM, SERUM 3.7 MMOL/L (3.5-5.3); SODIUM, SERUM 138 MMOL/L (135-148)
[2017-01-17 16:36] LABS: GLUCOSE, SERUM 157 MG/DL (60-99)
[2017-01-17 18:23] LABS: PHOSPHORUS, SERUM 1.7 MG/DL (2.5-4.5)
[2017-01-17 21:56] LABS: HEMATOCRIT 24.8 % (40.0-51.0); HEMOGLOBIN 8.2 g/dL (13.6-17.8); MEAN CORPUS HGB CONC 33.1 g/dL (32.0-36.0); MEAN CORPUSCULAR HEMOGLOB 30.9 pg (26.0-34.0); MEAN CORPUSCULAR VOLUME 93.6 fL (80-100); MEAN PLATELET VOLUME 10.1 fL (9.2-13.0); PLATELET COUNT 81 10/3/uL (150-400); RED CELL COUNT 2.65 10/6/uL (4.7-6.1); WHITE BLOOD CELLS 10.6 10/3/uL (4.5-10.5)
[2017-01-17 21:59] LABS: MANUAL DIFF YES %
[2017-01-17 22:17] LABS: BAND NEUTROPHILS 2 %; LYMPHOCYTES 9 %; LYMPHOCYTES ABSOLUTE (CALC) 0.95 10/3/uL (0.67-4.30); MONOCYTES 1 %; MONOCYTES ABSOLUTE (CALC) 0.11 10/3/uL (0.21-1.20); NEUTROPHILS ABSOLUTE (CALC) 9.54 10/3/uL (2.02-8.40); SEGMENTED NEUTROPHIL (0) 88 %; TOTAL NUCLEATED CELLS 100
[2017-01-17 22:18] LABS: ANISOCYTOSIS 1+ (5-10/OIF) (0-5/OIF)
[2017-01-17 22:19] LABS: BUN (BLOOD UREA NITROGEN) 17 MG/DL (6-23); CALCIUM, SERUM 8.3 MG/DL (8.5-10.4); CHLORIDE, SERUM 100 MMOL/L (96-112); CO2 (CARBON DIOXIDE) 29 MMOL/L (24-34); CREATININE 0.63 MG/DL (0.70-1.30); GFR AFRICAN AMERICAN 111 ML/MIN (>=60); GFR NON AFRICAN AMERICAN 96 ML/MIN (>=60); GLUCOSE, SERUM 146 MG/DL (60-99); PHOSPHORUS, SERUM 2.6 MG/DL (2.5-4.5); POTASSIUM, SERUM 3.5 MMOL/L (3.5-5.3); SODIUM, SERUM 139 MMOL/L (135-148)
[2017-01-18 01:13] LABS: POTASSIUM, SERUM 3.7 MMOL/L (3.5-5.3)
[2017-01-18 02:31] LABS: PHOSPHORUS, SERUM 2.7 MG/DL (2.5-4.5)
[2017-01-18 04:03] LABS: HEMATOCRIT 25.3 % (40.0-51.0); HEMOGLOBIN 8.3 g/dL (13.6-17.8); MANUAL DIFF YES %; MEAN CORPUS HGB CONC 32.8 g/dL (32.0-36.0); MEAN CORPUSCULAR VOLUME 94.4 fL (80-100); MEAN PLATELET VOLUME 10.2 fL (9.2-13.0); PLATELET COUNT 87 10/3/uL (150-400); RBC DISTRIBUTION WIDTH 18.2 % (12.0-16.0); RED CELL COUNT 2.68 10/6/uL (4.7-6.1); WHITE BLOOD CELLS 11.4 10/3/uL (4.5-10.5)
[2017-01-18 04:20] LABS: A/G RATIO 0.6 (0.7-1.9); ALBUMIN 2.5 G/DL (3.5-5.0); ALKALINE PHOSPHATASE 136 U/L (45-117); BUN (BLOOD UREA NITROGEN) 16 MG/DL (6-23); CALCIUM, SERUM 8.4 MG/DL (8.5-10.4); CHLORIDE, SERUM 100 MMOL/L (96-112); CO2 (CARBON DIOXIDE) 29 MMOL/L (24-34); CREATININE 0.63 MG/DL (0.70-1.30); GFR AFRICAN AMERICAN 111 ML/MIN (>=60); GFR NON AFRICAN AMERICAN 96 ML/MIN (>=60); GLOBULIN 4.1 G/DL (2.5-4.1); GLUCOSE, SERUM 130 MG/DL (60-99); POTASSIUM, SERUM 3.9 MMOL/L (3.5-5.3); SGOT(AST) 91 U/L (5-40); SGPT(ALT) 15 U/L (5-65); SODIUM, SERUM 138 MMOL/L (135-148); TOTAL BILIRUBIN 2.4 MG/DL (0-1.2); TOTAL PROTEIN 6.6 G/DL (6.0-8.5)
[2017-01-18 04:33] LABS: SEGMENTED NEUTROPHIL (0) 72 %; TOTAL NUCLEATED CELLS 100
[2017-01-18 04:35] LABS: ANISOCYTOSIS 1+ (5-10/OIF) (0-5/OIF); BAND NEUTROPHILS 15 %; BASOPHILS 1 %; BASOPHILS ABSOLUTE (CALC) 0.11 10/3/uL (0.0-0.16); EOSINOPHILS 1 %; EOSINOPHILS ABSOLUTE (CALC) 0.11 10/3/uL (0.0-0.53); IMMATURE GRANS ABSOLUTE (CALC) 0.23 10/3/uL (0.0-0.11); LYMPHOCYTES 9 %; LYMPHOCYTES ABSOLUTE (CALC) 1.03 10/3/uL (0.67-4.30); METAMYELOCYTES 2 %; NEUTROPHILS ABSOLUTE (CALC) 9.92 10/3/uL (2.02-8.40); PLATELET ESTIMATE DEC (ADEQUATE)
[2017-01-18 04:36] LABS: POLYCHROMASIA 1+ (2-5/OIF) (0-1/OIF); TOXIC GRANULATION 1+
[2017-01-18 05:10] LABS: BE (BASE EXCESS) 4.1 MEQ/L (0 +/- 2.5); CARBOXYHEMOGLOBIN 2.3 % (0-3); HCO3 (ACTUAL BICARBONATE) 29.7 MEQ/L (23-27); HEMOBLOGIN CONTENT 9.3 G/DL (14-18); INSTRUMENT SERIAL # 11843; METHEMOGLOBIN 0.6 % (0-3); MODE CMV; O2 CONTENT 11.9 VOL% (18-24); OPERATOR ID 30013; PCO2 (CO2 TENSION) 50 MMHG (35-45); PO2 (O2 TENSION) 69 MMHG (79-93); SAMPLE Arterial; TIDAL VOLUME 460 ML; pH 7.39 (7.37-7.43)
[2017-01-18 13:01] LABS: ASCORBIC ACID (UR NOT ORDER) 40 (NEG); BILIRUBIN, URINE NEGATIVE (NEG); KETONE, URINE NEGATIVE (NEG); LEUKOCYTE ESTERASE(NOT OR MOD (NEG)
[2017-01-18 13:02] LABS: WBC (NOT ORDERED) (RFLEX) > 182 (0-5)
[2017-01-18 19:50] LABS: PHOSPHORUS, SERUM 2.8 MG/DL (2.5-4.5)
[2017-01-19 03:32] LABS: HEMOGLOBIN 7.2 g/dL (13.6-17.8); MEAN CORPUS HGB CONC 33.5 g/dL (32.0-36.0); MEAN CORPUSCULAR HEMOGLOB 31.7 pg (26.0-34.0); MEAN CORPUSCULAR VOLUME 94.7 fL (80-100); MEAN PLATELET VOLUME 10.6 fL (9.2-13.0); PLATELET COUNT 84 10/3/uL (150-400); RBC DISTRIBUTION WIDTH 18.3 % (12.0-16.0); RED CELL COUNT 2.27 10/6/uL (4.7-6.1); WHITE BLOOD CELLS 9.7 10/3/uL (4.5-10.5)
[2017-01-19 03:35] LABS: ALBUMIN 2.2 G/DL (3.5-5.0); BUN (BLOOD UREA NITROGEN) 44 MG/DL (6-23); CALCIUM, SERUM 8.6 MG/DL (8.5-10.4); CHLORIDE, SERUM 99 MMOL/L (96-112); CO2 (CARBON DIOXIDE) 27 MMOL/L (24-34); CREATININE 1.63 MG/DL (0.70-1.30); GFR AFRICAN AMERICAN 47 ML/MIN (>=60); GFR NON AFRICAN AMERICAN 40 ML/MIN (>=60); GLUCOSE, SERUM 202 MG/DL (60-99); PHOSPHORUS, SERUM 3.4 MG/DL (2.5-4.5); POTASSIUM, SERUM 4.5 MMOL/L (3.5-5.3); SODIUM, SERUM 137 MMOL/L (135-148)
[2017-01-19 03:37] LABS: HEMATOCRIT 21.5 % (40.0-51.0); MANUAL DIFF YES %
[2017-01-19 04:05] LABS: BAND NEUTROPHILS 13 %; LYMPHOCYTES 4 %; LYMPHOCYTES ABSOLUTE (CALC) 0.39 10/3/uL (0.67-4.30); METAMYELOCYTES 1 %; NEUTROPHILS ABSOLUTE (CALC) 9.22 10/3/uL (2.02-8.40); SEGMENTED NEUTROPHIL (0) 82 %; TOTAL NUCLEATED CELLS 100
[2017-01-19 04:06] LABS: ANISOCYTOSIS 1+ (5-10/OIF) (0-5/OIF); PLATELET ESTIMATE DEC (ADEQUATE)
[2017-01-19 04:07] LABS: TOXIC GRANULATION 1+
[2017-01-19 13:05] LABS: BE (BASE EXCESS) 2.1 MEQ/L (0 +/- 2.5); CARBOXYHEMOGLOBIN 1.3 % (0-3); HCO3 (ACTUAL BICARBONATE) 27.5 MEQ/L (23-27); HEMOBLOGIN CONTENT 8.6 G/DL (14-18); INSTRUMENT SERIAL # 11843; METHEMOGLOBIN 0.7 % (0-3); MODE CMV; O2 CONTENT 11.4 VOL% (18-24); PCO2 (CO2 TENSION) 47 MMHG (35-45); PO2 (O2 TENSION) 86 MMHG (79-93); SAMPLE Arterial; TIDAL VOLUME 460 ML; pH 7.38 (7.37-7.43)
[2017-01-20 03:30] LABS: INSTRUMENT SERIAL # 11843; pH 7.36 (7.37-7.43)
[2017-01-20 03:31] LABS: BE (BASE EXCESS) -0.3 MEQ/L (0 +/- 2.5); CARBOXYHEMOGLOBIN 1.8 % (0-3); HCO3 (ACTUAL BICARBONATE) 25.3 MEQ/L (23-27); HEMOBLOGIN CONTENT 8.3 G/DL (14-18); METHEMOGLOBIN 0.6 % (0-3); MODE CMV; O2 CONTENT 10.7 VOL% (18-24); OPERATOR ID 17370; PCO2 (CO2 TENSION) 46 MMHG (35-45); PO2 (O2 TENSION) 71 MMHG (79-93); SAMPLE Arterial; TIDAL VOLUME 460 ML
[2017-01-20 04:08] LABS: HEMATOCRIT 22.1 % (40.0-51.0); HEMOGLOBIN 7.1 g/dL (13.6-17.8); MEAN CORPUS HGB CONC 32.1 g/dL (32.0-36.0); MEAN CORPUSCULAR HEMOGLOB 31.4 pg (26.0-34.0); MEAN PLATELET VOLUME 10.4 fL (9.2-13.0); PLATELET COUNT 88 10/3/uL (150-400); RBC DISTRIBUTION WIDTH 19.3 % (12.0-16.0); RED CELL COUNT 2.26 10/6/uL (4.7-6.1); WHITE BLOOD CELLS 8.7 10/3/uL (4.5-10.5)
[2017-01-20 04:09] LABS: MANUAL DIFF YES %; MEAN CORPUSCULAR VOLUME 97.8 fL (80-100)
[2017-01-20 04:16] LABS: CALCIUM, SERUM 8.1 MG/DL (8.5-10.4); CHLORIDE, SERUM 105 MMOL/L (96-112); CO2 (CARBON DIOXIDE) 28 MMOL/L (24-34); CREATININE 1.56 MG/DL (0.70-1.30); GFR AFRICAN AMERICAN 49 ML/MIN (>=60); GFR NON AFRICAN AMERICAN 43 ML/MIN (>=60); GLUCOSE, SERUM 194 MG/DL (60-99); POTASSIUM, SERUM 4.3 MMOL/L (3.5-5.3); SODIUM, SERUM 141 MMOL/L (135-148)
[2017-01-20 04:24] LABS: BUN (BLOOD UREA NITROGEN) 39 MG/DL (6-23)
[2017-01-20 04:33] LABS: ANISOCYTOSIS 1+ (5-10/OIF) (0-5/OIF); BAND NEUTROPHILS 1 %; IMMATURE GRANS ABSOLUTE (CALC) 0.35 10/3/uL (0.0-0.11); LYMPHOCYTES 1 %; LYMPHOCYTES ABSOLUTE (CALC) 0.09 10/3/uL (0.67-4.30); METAMYELOCYTES 2 %; MYELOCYTES 2 %; NEUTROPHILS ABSOLUTE (CALC) 8.27 10/3/uL (2.02-8.40); PLATELET ESTIMATE DEC (ADEQUATE); SEGMENTED NEUTROPHIL (0) 94 %; TOTAL NUCLEATED CELLS 100
[2017-01-20 07:16] LABS: PROCALCITONIN 1.47 ng/mL (<0.5)
[2017-01-21 04:34] LABS: BASOPHILS 0.1 %; BASOPHILS ABSOLUTE 0.01 10/3/uL (0.0-0.16); EOSINOPHILS 0.4 %; EOSINOPHILS ABSOLUTE 0.03 10/3/uL (0.0-0.53); IMMATURE GRANULOCYTES ABSOLUTE 0.07 10/3/uL (0.0-0.11); LYMPHOCYTES 9.3 %; LYMPHOCYTES ABSOLUTE 0.64 10/3/uL (0.67-4.30); MEAN CORPUS HGB CONC 30.8 g/dL (32.0-36.0); MEAN CORPUSCULAR HEMOGLOB 30.6 pg (26.0-34.0); MEAN CORPUSCULAR VOLUME 99.5 fL (80-100); MEAN PLATELET VOLUME 10.2 fL (9.2-13.0); MONOCYTES 3.9 %; MONOCYTES ABSOLUTE 0.27 10/3/uL (0.21-1.20); NEUTROPHILS 85.3 %; NEUTROPHILS ABSOLUTE 5.88 10/3/uL (2.02-8.40); PLATELET COUNT 80 10/3/uL (150-400); RED CELL COUNT 2.09 10/6/uL (4.7-6.1); WHITE BLOOD CELLS 6.9 10/3/uL (4.5-10.5)
[2017-01-21 04:36] LABS: HEMATOCRIT 20.8 % (40.0-51.0); HEMOGLOBIN 6.4 g/dL (13.6-17.8); MANUAL DIFF NO %
[2017-01-21 04:42] LABS: CHLORIDE, SERUM 104 MMOL/L (96-112); CO2 (CARBON DIOXIDE) 28 MMOL/L (24-34); CREATININE 1.66 MG/DL (0.70-1.30); GFR AFRICAN AMERICAN 46 ML/MIN (>=60); GFR NON AFRICAN AMERICAN 39 ML/MIN (>=60); GLUCOSE, SERUM 180 MG/DL (60-99); PHOSPHORUS, SERUM 2.8 MG/DL (2.5-4.5); POTASSIUM, SERUM 4.4 MMOL/L (3.5-5.3); SODIUM, SERUM 141 MMOL/L (135-148)
[2017-01-21 04:43] LABS: BUN (BLOOD UREA NITROGEN) 51 MG/DL (6-23); INTERNATIONAL NORMAL RATI 1.3 UNITS (-)
[2017-01-21 04:45] LABS: PROTIME (NOT ORD) 16.3 SEC (12.0-14.5)
[2017-01-21 04:53] LABS: BE (BASE EXCESS) 1.8 MEQ/L (0 +/- 2.5); HCO3 (ACTUAL BICARBONATE) 28.4 MEQ/L (23-27); HEMOBLOGIN CONTENT 7.5 G/DL (14-18); INSTRUMENT SERIAL # 11843; METHEMOGLOBIN 0.8 % (0-3); MODE CMV; O2 CONTENT 10.3 VOL% (18-24); PCO2 (CO2 TENSION) 57 MMHG (35-45); PO2 (O2 TENSION) 122 MMHG (79-93); SAMPLE Arterial; TIDAL VOLUME 400 ML; pH 7.32 (7.37-7.43)
[2017-01-22 04:03] LABS: BASOPHILS 0.1 %; BASOPHILS ABSOLUTE 0.01 10/3/uL (0.0-0.16); EOSINOPHILS 0.7 %; EOSINOPHILS ABSOLUTE 0.06 10/3/uL (0.0-0.53); HEMOGLOBIN 7.2 g/dL (13.6-17.8); IMMATURE GRANULOCYTES 0.6 %; IMMATURE GRANULOCYTES ABSOLUTE 0.05 10/3/uL (0.0-0.11); LYMPHOCYTES 6.5 %; LYMPHOCYTES ABSOLUTE 0.53 10/3/uL (0.67-4.30); MEAN CORPUS HGB CONC 31.3 g/dL (32.0-36.0); MEAN CORPUSCULAR HEMOGLOB 29.9 pg (26.0-34.0); MEAN PLATELET VOLUME 10.4 fL (9.2-13.0); MONOCYTES 5.1 %; MONOCYTES ABSOLUTE 0.42 10/3/uL (0.21-1.20); NEUTROPHILS ABSOLUTE 7.09 10/3/uL (2.02-8.40); PLATELET COUNT 94 10/3/uL (150-400); RED CELL COUNT 2.41 10/6/uL (4.7-6.1); WHITE BLOOD CELLS 8.2 10/3/uL (4.5-10.5)
[2017-01-22 04:09] LABS: MANUAL DIFF NO %; MEAN CORPUSCULAR VOLUME 95.4 fL (80-100)
[2017-01-22 04:16] LABS: ALBUMIN 2.1 G/DL (3.5-5.0); BUN (BLOOD UREA NITROGEN) 49 MG/DL (6-23); CALCIUM, SERUM 8.1 MG/DL (8.5-10.4); CHLORIDE, SERUM 104 MMOL/L (96-112); CO2 (CARBON DIOXIDE) 27 MMOL/L (24-34); CREATININE 1.78 MG/DL (0.70-1.30); GFR AFRICAN AMERICAN 42 ML/MIN (>=60); GFR NON AFRICAN AMERICAN 36 ML/MIN (>=60); GLUCOSE, SERUM 175 MG/DL (60-99); PHOSPHORUS, SERUM 2.5 MG/DL (2.5-4.5); POTASSIUM, SERUM 4.2 MMOL/L (3.5-5.3); SODIUM, SERUM 140 MMOL/L (135-148)
[2017-01-23 04:41] LABS: A/G RATIO 0.5 (0.7-1.9); ALBUMIN 2.4 G/DL (3.5-5.0); CALCIUM, SERUM 8.6 MG/DL (8.5-10.4); CHLORIDE, SERUM 104 MMOL/L (96-112); CO2 (CARBON DIOXIDE) 28 MMOL/L (24-34); GFR AFRICAN AMERICAN 36 ML/MIN (>=60); GFR NON AFRICAN AMERICAN 31 ML/MIN (>=60); GLOBULIN 4.7 G/DL (2.5-4.1); GLUCOSE, SERUM 182 MG/DL (60-99); POTASSIUM, SERUM 4.3 MMOL/L (3.5-5.3); SGOT(AST) 61 U/L (5-40); SGPT(ALT) 20 U/L (5-65); SODIUM, SERUM 141 MMOL/L (135-148); TOTAL BILIRUBIN 2.3 MG/DL (0-1.2); TOTAL PROTEIN 7.1 G/DL (6.0-8.5)
[2017-01-23 04:44] LABS: ALKALINE PHOSPHATASE 180 U/L (45-117); BUN (BLOOD UREA NITROGEN) 59 MG/DL (6-23)
[2017-01-23 05:18] LABS: BE (BASE EXCESS) -3.7 MEQ/L (0 +/- 2.5); CARBOXYHEMOGLOBIN 2.1 % (0-3); HCO3 (ACTUAL BICARBONATE) 22.8 MEQ/L (23-27); HEMOBLOGIN CONTENT 8.7 G/DL (14-18); INSTRUMENT SERIAL # 11843; METHEMOGLOBIN 0.6 % (0-3); O2 CONTENT 11.1 VOL% (18-24); OPERATOR ID 32193; PCO2 (CO2 TENSION) 48 MMHG (35-45); PO2 (O2 TENSION) 72 MMHG (79-93); SAMPLE Arterial; pH 7.29 (7.37-7.43)
[2017-01-23 05:19] LABS: ALLENS TEST Pos; MODE CMV; TIDAL VOLUME 400 ML
[2017-01-23 07:34] LABS: HEMATOCRIT 24.1 % (40.0-51.0); HEMOGLOBIN 7.7 g/dL (13.6-17.8); MEAN CORPUSCULAR HEMOGLOB 30.8 pg (26.0-34.0); MEAN CORPUSCULAR VOLUME 96.4 fL (80-100); MEAN PLATELET VOLUME 11.8 fL (9.2-13.0); NUCLEATED RED BLOOD CELLS 1.4 /100WBC (0-0); PLATELET COUNT 119 10/3/uL (150-400); WHITE BLOOD CELLS 7.4 10/3/uL (4.5-10.5)
[2017-01-23 07:35] LABS: MANUAL DIFF YES %
[2017-01-23 08:02] LABS: ANISOCYTOSIS 1+ (5-10/OIF) (0-5/OIF); BAND NEUTROPHILS 8 %; LYMPHOCYTES 9 %; LYMPHOCYTES ABSOLUTE (CALC) 0.67 10/3/uL (0.67-4.30); MACROCYTES 1+ (5-10/OIF) (0-5/OIF); MONOCYTES 4 %; NEUTROPHILS ABSOLUTE (CALC) 6.44 10/3/uL (2.02-8.40); PLATELET ESTIMATE SLT DEC (ADEQUATE); SEGMENTED NEUTROPHIL (0) 79 %; TOTAL NUCLEATED CELLS 100
== END 2017-01-23 19:30 | disposition left against medical advice (07) | DRG 3 ==
LOC: SDC/OF 05:17 → CVICU 12:21
PROVIDERS: Internal Medicine; Internal Medicine Cardiovascular Disease; Internal Medicine Critical Care Medicine; Internal Medicine Nephrology; Internal Medicine Pulmonary Disease; Nurse Practitioner Acute Care; Radiology Vascular & Interventional Radiology; Thoracic Surgery (Cardiothoracic Vascular Surgery)
DX: I25.10 Atherosclerotic heart disease of native coronary artery without angina pectoris (principal); N17.0 Acute kidney failure with tubular necrosis; R57.0 Cardiogenic shock; I50.33 Acute on chronic diastolic (congestive) heart failure; J95.821 Acute postprocedural respiratory failure; E11.22 Type 2 diabetes mellitus with diabetic chronic kidney disease; J15.5 Pneumonia due to Escherichia coli; I13.0 Hypertensive heart and chronic kidney disease with heart failure and stage 1 through stage 4 chronic kidney disease, or unspecified chronic kidney disease; D62 Acute posthemorrhagic anemia; D69.6 Thrombocytopenia, unspecified; J98.11 Atelectasis; I97.89 Other postprocedural complications and disorders of the circulatory system, not elsewhere classified; R04.2 Hemoptysis; R13.10 Dysphagia, unspecified; G20 Parkinson's disease; I35.0 Nonrheumatic aortic (valve) stenosis; I27.2 Other secondary pulmonary hypertension; I65.21 Occlusion and stenosis of right carotid artery; I48.2 Chronic atrial fibrillation; I36.1 Nonrheumatic tricuspid (valve) insufficiency; N18.9 Chronic kidney disease, unspecified; J44.9 Chronic obstructive pulmonary disease, unspecified; E78.5 Hyperlipidemia, unspecified; E66.9 Obesity, unspecified; K25.9 Gastric ulcer, unspecified as acute or chronic, without hemorrhage or perforation; Z79.01 Long term (current) use of anticoagulants; Z68.32 Body mass index [BMI] 32.0-32.9, adult; I25.5 Ischemic cardiomyopathy; E63.9 Nutritional deficiency, unspecified; Z79.899 Other long term (current) drug therapy; Z87.891 Personal history of nicotine dependence; Z79.84 Long term (current) use of oral hypoglycemic drugs
CPT/HCPCS: 31500; 31720; 36216; 36225; 36415; 36430; 36556; 36558; 36569; 36571; 36600; 49440; 49450; 71010; 71020; 74000; 74150; 75716; 75726; 76700; 76775; 76937; 77001; 80048; 80053; 80069; 80074; 80076; 80202; 81001; 82140; 82248; 82272; 82330; 82533; 82803; 82805; 82947; 82962; 83036; 83540; 83550; 83605; 83735; 84100; 84132; 84134; 84145; 84295; 85014; 85018; 85025; 85049; 85347; 85384; 85576; 85576-59; 85610; 85730; 86022; 86850; 86900; 86901; 86920; 87040; 87070; 87077; 87086; 87186; 87205; 87389; 87641; 88304; 88305; 88311; 90945; 92950; 93005; 93312; 93320; 93325; 93971; 94002; 94003; 94640; 94660; 94770; 97110-GP; 97162-GP; 97164-GP; 97167-GO; 97530-GP; 99152; 99153; A9270-GY; C1713; C1725; C1750; C1751; C1752; C1757; C1769; C1782; C1887; C1894; C2618; C8929; C9113; C9132; G0257; G0463; G8978-CM-GP; G8979-CL-GP; G8979-CM-GP; G8980-CM-GP; J0282; J0360; J0610; J0690; J0692; J1170; J1205; J1580; J1644; J1720; J1940; J2150; J2250; J2260; J2370; J2405; J2543; J2597; J2720; J2765; J2930; J3010; J3370; J3430; J3475; J3480; P9016; P9035; P9040; P9045; P9047; P9059; Q9957; Q9967